=== PATIENT | female | born 1960 | race African-American/Black ===

== ENCOUNTER 2024-10-11 10:45 | Day surgery (SDC) | payer OTHER, SELFPAY ==
--- NOTE | ~2024-10-11 | XR_ITS ---
INTRAOPERATIVE FLUOROSCOPY: CLINICAL HISTORY: 64 years old Female; AFSHAN L3-4 TRANSFORMINAL EPI STEROID INJ PROCEDURE COMMENTS: Limited intraoperative fluoroscopy of the lumbar spine was performed. CUMULATIVE DOSE: 7.1 mGy FLUOROSCOPY TIME: 27 seconds FINDINGS/IMPRESSION: Please refer to operative note for further details. Reviewed, dictated and finalized at location A.
--- OUTSIDE RECORDS SUMMARY | 2024-10-11 10:51 | XMS_ITS | Encounter Summary ---
Author Organization [facility] Address [address] [place] [address] Phone Care Team Providers Care Extrusion Bender Name Role Phone Cole, Jessie Jensen MD Primary Care Provider + Vimal Dutton MD Primary Care Provider [phone] Tres Granado MD Primary Care Provider [phone] Mio Peck MD Unavailable Dedrick Carr MD Unavailable Cesar Manning Unavailable Edson Osborne MD Unavailable Unavailable Abdullahi Wilson MD Primary Care Provider +[phone] Cindy Oliver DPM Unavailable [phone] Junior Wallace MD Unavailable Alycia Mcclain APRN, MAINTENANCE EQUIPMENT OPERATOR Unavailable + [phone] Juanis Can MD Primary Care Provider + [phone] Con Fox MD Unavailable [phone] Robert Lowery MD Unavailable Chaz Felisha Williams GUERRA, MAINTENANCE EQUIPMENT OPERATOR Primary Care Provider [phone] Reason for Referral * Radiology Services (Routine) - Closed Specialty Diagnoses / Procedures Referred By Soha t Referred To Contact Radiology Diagnoses Pre-op testing Procedures EKG 12 LEAD Oscar Borrero MD #1 [place] [address] Phone: tel: fax: Referral ID Status Reason Start Date Expiration Date Visits Re quested Visits Authorized [id number] Closed 12/04/2021 1 1 Encounter Details Date Type Department Care Team (Late Contact Info) Description 12/04/2021 Transcribe Orders [facility] Preop/Pacu II 1 [place] [address] Oscar Borrero MD [address] [place] [address] Pre-op testing (Primary Dx) Social History Tobacco Use Types Packs/Day Years Used Date Smoking Tobacco: Every Day Cigarettes Smokeless Tobacco: Never Alcohol Use Standard Drinks/Week Comments Yes 2 (1 standard drink = 0.6 oz pur e alcohol) OCCASIONALLY Sexually Active Control Partners Comments Yes Post-menopausal Male Comments No Sex and Gender Information Value Date Recorded Sex Assigned at Not on file Legal Sex Female 12:22 AM CDT Gender Identity Not on file Sexual Orientation Not on file COVID-19 Exposure Response Date Recorded In the last 10 days, have yo u been in contact with someone who was confirmed or suspected to have Coronavirus/COVID-19? No / Unsure 12/05/2021 4:53 PM CDT documented as of this encounter Plan of Treatment Upcoming Encounters Date Type Department Care Team (Late Contact Info) Description 11/11/2024 11:30 AM CDT Office Visit [facility] Medical [facility] - Pulmonology & Sleep Medicine [facility] #2 [place] [address] Dedrick Carr MD #2 [place] [address] 12/16/2024 2:15 PM CDT Office Visit [facility] Medical [facility] - Endocrinology - [place] [address]2 [place] [address] Robert Lowery MD #[address] [address] 12/16/2024 3:30 PM CDT Office Visit [facility] - Primary Care - [place] [address] [place] [address] Felisha Ware TURKEY BONER, MAINTENANCE EQUIPMENT OPERATOR [address] [place] [address] 01/27/2025 10:00 AM CDT Office Visit [facility] - Cardiology [facility] [address] [place] [address] Khadijah Garay, MARI, MAINTENANCE EQUIPMENT OPERATOR [address]2 [place] [address] documented as of this encounter Results * EKG 12 LEAD (12/05/2021 2:38 PM CDT) Ventricular Rate BPM EXTERNAL EKG Atrial Rate BPM EXTERNAL EKG P-R Interval 144 ms EXTERNAL EKG QRS Duration 84 ms EXTERNAL EKG Q-T Duration 386 ms EXTERNAL EKG QTC CALCULATION 429 ms EXTERNAL EKG P [place] 71 degrees EXTERNAL EKG R [place] 37 degrees EXTERNAL EKG T [place] 65 degrees EXTERNAL EKG 12/05/2021 2:38 PM CDT Impressions EXTERNAL EKG - 12/10/2021 2:11 PM CDT Sinus rhythm Possible septal infarct - age undetermined Comparison Summary: No serial comparison made Summary: Abnormal ECG Confirmed by Td Pacheco [id number] on 12/10/2021 2:11:08 PM Narrative Procedure Note Junior Wallace MD - 12/10/2021 IMPRESSION: Sinus rhythm Possible septal infarct - age undetermined Comparison Summary: No serial comparison made Summary: Abnormal ECG Confirmed by Td Pacheco [id number] on 12/10/2021 2:11:08 PM Oscar Borrero MD IMG ECG ORDERABLES Final Resu lt EXTERNAL EKG * HEMOGLOBIN & HEMATOCRIT (H&H) (12/05/2021 2:31 PM CDT) HEMOGLOBIN (HGB) 12.8 12.0 - 15.8 g/dL 12/05/2021 2:37 PM CDT [facility] HEMATOCRIT (HCT) 39.1 36.0 - 47.0 % 12/05/2021 2:37 PM CDT [facility] Blood Venipuncture / Unknown 12/05/2021 2:31 PM CDT 12/05/2021 2:35 PM CDT Oscar Borrero MD HEMATOLOGY ORDERABLES Final R esult Performing Organization Address City/[facility]/ZIP Co de Phone Number [facility] [place] [address] documented in this encounter Visit Diagnoses Diagnosis Pre-op testing- Primary Preoperative examination, unspecified Pre-op testing Preoperative examination, unspecified documented in this encounter Additional Health Concerns Infection Onset Date Last Indicated Resolved Time COVID - 19 05/16/2024 05/16/2024 05/16/2024 11:1 4 AM 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 documented as of this encounter Care Teams Extrusion Bender Relationship Specialty Start Date End Date Jessie Cole MD [address] [place] [address] [place] [address] PCP - General Family Medicine 10/02/20 03/17/22 Vimal Dutton MD 4 [facility] [address] [place] [address] PCP - General Family Medicine 03/18/22 06/24/22 Tres Granado MD 4 [facility] [address] [place], [place] [address] [address] PCP - General Family Medicine 06/25/22 09/03/22 Abdullahi Wilson MD [address] [place] [id number] PCP - General Internal Medicine 09/04/22 08/02/23 Juanis Can MD [address] [place] [address] PCP - General Family Medicine 08/03/23 06/12/24 Felisha Ware, TURKEY BONER, MAINTENANCE EQUIPMENT OPERATOR [address] [place] [address] PCP - General Certified Nurse Practitioner 06/13/24 Mio Peck MD [address] [place] [address] Consulting Physician Orthopaedic Surgery 09/04/22 Dedrick Carr MD [address] [place] [address] Consulting Physician Pulmonary Disease 09/04/22 Cesar Manning 675 [facility] [address] [address] Consulting Physician Orthopaedic Sports Medicine 09/04/22 Edson Osborne MD Consulting Physician Orthopaedic Surgery 09/04/22 09/04/22 Cindy Oliver DPWilliams [address] [place] [address] Consulting Physician Podiatry 07/22/22 03/08/24 Junior Wallace MD [address] [place] [address] Consulting Physician Cardiovascular Disease - Cardiology 10/20/22 07/26/23 Alycia Cole APRN, MAINTENANCE EQUIPMENT OPERATOR [address] [place] [facility] [address] [place] [address] Nurse Practitioner Advanced Practice Nurse 05/18/23 Con Fox MD 2 [facility] [place] [facility] [place]. [address] [place] [address] Advanced Practice Psychiatric Nurse Internal Medicine 12/10/23 Robert Lowery MD #2 [facility] [address] [place] [address] Consulting Physician Endocrinology 02/03/24 documented as of this encounter
--- OUTSIDE RECORDS SUMMARY | 2024-10-11 10:51 | XMS_ITS | Encounter Summary ---
Author Organization [facility] Address [address] [place] [address] Phone Care Team Providers Care Scrub Wheel Operator Name Role Phone Cole, Jessie Jensen MD Primary Care Provider + Vimal Dutton MD Primary Care Provider [phone] Tres Granado MD Primary Care Provider [phone] Mio Peck MD Unavailable Dedrick Carr MD Unavailable Cesar Manning Unavailable Edson Osborne MD Unavailable Unavailable Abdullahi Wilson MD Primary Care Provider [phone] Cindy Oliver DPM Unavailable [phone] Junior Wallace MD Unavailable Alycia Mcclain APRN, INSURANCE MARKETING REP Unavailable + [phone] Juanis Can MD Primary Care Provider + [phone] Con Fox MD Unavailable [phone] Robert Lowery MD Unavailable Felisha Ware APRN, INSURANCE MARKETING REP Primary Care Provider [phone] Encounter Details Date Type Department Care Team (Late Contact Info) Description 12/05/[address] [facility] Sleep Lab 1 [place] [address] Dedrick Carr MD #2 [place] [address] Social History Tobacco Use Types Packs/Day Years [...] Description 11/11/2024 11:30 AM CDT Office Visit [facility] Medical [facility] - Pulmonology & Sleep Medicine [facility] #2 [place] [address] Dedrick Carr MD #2 [place] [address] 12/16/2024 2:15 PM CDT Office Visit [facility] Medical Group - Endocrinology - [place] [address] [place] [address] Robert Lowery MD #[address] [address] 12/16/2024 3:30 PM CDT Office Visit [facility] - Primary Care - [place] [address] [place] [address] Felisha Ware, COACH CLEANER, INSURANCE MARKETING REP [address] 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 documented as of this encounter Care Teams Scrub Wheel Operator Relationship Specialty Start Date End Date Jessie Cole MD [address] [place] [address] [address] [place] [address] PCP - General Family Medicine 10/02/20 03/17/22 Vimal Dutton MD [address] [place] [address] [address] [place] [address] PCP - General Family Medicine 03/18/22 06/24/22 Tres Granado MD [address] [place] [address] [place] [address] PCP - General Family Medicine 06/25/22 09/03/22 Abdullahi Wilson MD [address] [place] [address] PCP - General Internal Medicine 09/04/22 08/02/23 Juanis Can MD [address] [place] [address] PCP - General Family Medicine 08/03/23 06/12/24 Felisha Ware APRN, INSURANCE MARKETING REP [address] [place] [address] PCP - General Certified Nurse Practitioner 06/13/24 Mio Peck MD [address] [place] [address] Consulting Physician Orthopaedic Surgery 09/04/22 Dedrick Carr MD #[address] [place] [address] Consulting Physician Pulmonary Disease 09/04/22 Cesar Manning [address] [address] Consulting Physician Orthopaedic Sports Medicine 09/04/22 Edson Osborne MD Consulting Physician Orthopaedic Surgery 09/04/22 09/04/22 iCndy Oliver DPM [address] [place] [address] Consulting Physician Podiatry 07/22/22 03/08/24 Junior Wallace MD [address] [place] [address] Consulting Physician Cardiovascular Disease - Cardiology 10/20/22 07/26/23 Alycia Cole APRN, INSURANCE MARKETING REP #[address] [facility], [address] [place] [address] Nurse Practitioner Advanced Practice Nurse 05/18/23 Con Fox MD [address] [facility] [place] [place]. [address] [place] [address] [facility] Internal Medicine 12/10/23 Robert Lowery MD #[address] [place] [address] [place] [address] Consulting Physician Endocrinology 02/03/24 documented as of this encounter
--- OUTSIDE RECORDS SUMMARY | 2024-10-11 10:51 | XMS_ITS | Encounter Summary ---
Author Organization [facility] Address [address] [place] [address] Phone Care Team Providers Care Cnc Maintenance Mechanic Name Role Phone Cole, Jessie Jensen MD Primary Care Provider + Vimal Dutton MD Primary Care Provider [phone] Tres Granado MD Primary Care Provider [phone] Mio Peck MD Unavailable Dedrick Carr MD Unavailable Cesar Manning Unavailable Edson Osborne MD Unavailable Unavailable Abdullahi Wilson MD Primary Care Provider [phone] Cindy Oliver DPM Unavailable Junior Wallace MD Unavailable Alycia Mcclain APRN, ORNAMENT STAPLER Unavailable + [phone] Juanis Can MD Primary Care Provider + [phone] Con Fox MD Unavailable [phone] Robert Lowery MD Unavailable Felisha Ware APRN, ORNAMENT STAPLER Primary Care Provider [phone] Encounter Details Date Type Department Care Team (Late Contact Info) Description 12/05/2021 Transcribe Orders [facility] Preop/Pacu II 1 [place] [address] Oscar Borrero MD [address] [place] [address] Pre-op testing (Primary Dx) Social History Tobacco [...] Description 11/11/2024 11:30 AM CDT Office Visit [facility] - Pulmonology & Sleep Medicine [facility] #2 [place] [address] Dedrick Carr MD #[address] [place] [address] 12/16/2024 2:15 PM CDT Office Visit [facility] Medical Group - Endocrinology - [place] #2 [place] [address] Robert Lowery MD #[address] [address] 12/16/2024 3:30 PM CDT Office Visit [facility] - Primary Care - [place] [address] [place] [address] Felisha Ware, KNOWLEDGE ARCHITECT, ORNAMENT STAPLER [address] [place], [place] [address] 01/27/2025 10:00 AM CDT Office Visit [facility] Medical [facility] - Cardiology - [place] #2 [facility] [place] [address] Khadijah Garay, KNOWLEDGE ARCHITECT, ORNAMENT STAPLER #2 [place] [address] documented as of this encounter Results * SARS-COV-2 BY MOLECULAR (12/10/2021 12:05 PM CDT) [facility] SARSCOV2 NOT DETECTED (Referenc e Range for this test is Not Detected) [facility] US ID NOW 12/10/2021 12:52 PM CDT [facility] Comment:This test was perfor med by a MOLECULAR, NON-PCR method Other NASOPHARYNGEAL STRUCTURE / Unknown Non-Phlebotomy Collection / Unknown 12/10/2021 12:05 PM CDT 12/10/2021 12:24 PM CDT Narrative [facility] - 12/10/2021 12:52 PM CDT This test has been authorized by the FDA under an Emergency Use Authorization (EUA) only. Negative results should be treated as presumptive and, if inconsistent with clinical signs and symptoms or necessary for patient management, the patient should be tested with an alternative molecular assay. Negative results do not preclude SARS-CoV-2 infection or any other respiratory pathogen. Additional information for Clinicians can be found at: https://www.fda.gov/media/010215/download Additional information for Patients can be found at: https://www.fda.gov/media/380881/download Oscar Borrero MD MICROBIOLOGY - GENERAL ORDERA CAY[place] Final Result [facility] [place] [address] documented in this encounter Visit Diagnoses Diagnosis Pre-op testing- Primary Preoperative examination, unspecified documented in this encounter Additional Health Concerns Infection Onset Date Last Indicated Resolved Time COVID - 19 05/16/2024 05/16/2024 05/16/2024 11:1 4 AM 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 documented as of this encounter Care Teams Cnc Maintenance Mechanic Relationship Specialty Start Date End Date Jessie Cole MD [address] [facility] [place] [address] PCP - General Family Medicine 10/02/20 03/17/22 Vimal Dutton MD [address] [place] [address] [place] [address] PCP - General Family Medicine 03/18/22 06/24/22 Tres Granado MD [address] [place] [address] [address] [place] [address] PCP - General Family Medicine 06/25/22 09/03/22 Abdullahi Wilson MD [address] [place] [address] PCP - General Internal Medicine 09/04/22 08/02/23 Juanis Can MD [address] [place] [address] PCP - General Family Medicine 08/03/23 06/12/24 Felisha Ware, KNOWLEDGE ARCHITECT, ORNAMENT STAPLER [address] [place] [address] PCP - General Certified Nurse Practitioner 06/13/24 Mio Peck MD [address] [place] [address] Consulting Physician Orthopaedic Surgery 09/04/22 Dedrick Carr MD #2 [place] [address] Consulting Physician Pulmonary Disease 09/04/22 Cesar Manning [address] [address] Consulting Physician Orthopaedic Sports Medicine 09/04/22 Edson Osborne MD Consulting Physician Orthopaedic Surgery 09/04/22 09/04/22 Cindy Oliver DPM [address] [place] [address] Consulting Physician Podiatry 07/22/22 03/08/24 Junior Wallace MD [address] [place] [address] Consulting Physician Cardiovascular Disease - Cardiology 10/20/22 07/26/23 Alycia Cole APRN, ORNAMENT STAPLER #2 [facility], [address] [address] Nurse Practitioner Advanced Practice Nurse 05/18/23 Con Fox MD 2 [facility] [address] [place] [address] Daycare Assistant Internal Medicine 12/10/23 Robert Lowery MD #[address] [address] [address] Consulting Physician Endocrinology 02/03/24 documented as of this encounter
--- OUTSIDE RECORDS SUMMARY | 2024-10-11 10:52 | XMS_ITS | Clinical Summary ---
Author Organization [facility] Address [address] [place] [address] Phone Care Team Providers Care Timekeeper Supervisor Name Role Phone Mio Peck MD Unavailable Dedrick Carr MD Unavailable Cesar Manning Unavailable Con Fox MD Unavailable [phone] Robert Lowery MD Unavailable Felisha Ware APRN, BUFFER NICKEL Primary Care Provider [phone] Allergies Active Allergy Reactions Criticality Noted Date Comments Latex Hives 06/04/2022 Ketorolac Tromethamine Itching 10/02/2020 Tramadol Itching Low 11/18/2017 Medications Polyethylene Glycol 3350 (MIRALAX PO) Take by mouth every morning. FULL CAP FULL Active Multiple Vitamin (MULTIVITAMIN PO) Take by mouth daily. HOLD FOR 3 DAYS PRIOR TO SURGERY Active Respiratory Therapy Supplies (Nebulizer) Device Use as directed 1 Each 022 Active Blood Glucose Monitoring Suppl (IdenIveTouch Verio Reflect) w/Device Kit USE DIRECTED Active Glucose Blood (OneTouch Verio) Strip CHECKS IT WEEKLY NOW 022 Active Lancets (OneTouch Delica Plus [id number]) [facility] [place] TAKE GLUCOSE MEASUREMENTS ONCE DAILY Active ipratropium (ATROVENT) 0.02 % Solution 2.5 mL by Nebulization route every 6 hours. 360 mL 3 023 Active aspirin EC 81 MG Tablet Delayed Response Take 81 mg by mouth daily. Active albuterol 108 (90 Base) MCG/ACT Aerosol SolutionIndicati ons:Centrilobula r emphysema (HCC) take 2 Puffs by inhalation every 4 hours as needed for Wheezing. 18 g 3 023 Active nystatin (MYCOSTATIN) 148899 UNIT/GM Cream 023 Active ipratropium-albu terol (DUO-NEB) 0.5-2.5 (3) MG/3ML Solution 3 mL by Nebulization route 4 times daily. 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 1 g 6 025 Active albuterol (ProAir HFA) 108 (90 Base) MCG/ACT Aerosol Solution take 2 Puffs by inhalation every 4 hours as needed for Wheezing. 1 g 6 025 Active atorvastatin (LIPITOR) 80 MG Tablet Take 1 Tablet by mouth every morning. 90 Tablet 3 025 Active amLODIPine (NORVASC) 10 MG Tablet Take 1 Tablet by mouth every morning. 90 Tablet 1 025 Active fluticasone (FLONASE) 50 MCG/ACT SuspensionIndica tions:Viral sinusitis,Nasal congestion SHAKE LIQUID AND USE 2 SPRAYS IN EACH NOSTRIL DAILY DIRECTED 16 g 1 025 Active fluticasone (FLONASE) 50 MCG/ACT SuspensionIndica tions:Viral sinusitis,Nasal congestion 2 Sprays by Nasal route daily. Use in each nostril as directed. 16 g 1 025 2024 Discontinued Active Problems Problem Noted Date Diagnosed Date Precordial pain 02/01/2024 Irritable bowel syndrome with constipation 09/04 Tarsal tunnel syndrome of both lower extremities 08/24/2022 Onychomycosis of toenail 08/24/2022 Overview (07/27/2023): severe; seen by podiatry- started on terbinafine. 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 Chronic obstructive pulmonary disease 12/12/2020 Cyst of ovary 12/12/2020 Gastroesophageal reflux disease without esophagi tis 12/12/2020 Spinal stenosis of lumbar re gion with neurogenic claudication 12/12/2020 Tobacco dependence syndrome 11/15/2020 Peripheral arterial occlusive disease 07/21/2019 Vitamin D deficiency 06/30/2019 Resolved Problems Problem Noted Date Diagnosed Date Resolved Date Tobacco use disorder 12/04/2021 024 Encounters Date Type Department Care Team Description [facility]/10[facility] [place] [address] [place] [address] Felisha Ware, MARI, BUFFER NICKEL Results (mammogram) 09/21/2024 Refill [facility] [place] [address] [place] [address] Felisha Ware APRN, KIMBERLYN Medication Refill 08/11/2024 Results Follow-Up [address] [address] Felisha Ware APRN, KIMBERLYN XR SHOULDER COMPLETE RIGHT 08/08/2024 3:05 PM CDT Ancillary Procedure [facility] Diagnostic Radiology - [address] [phone] Felisha Ware APRN, BUFFER NICKEL Discharge Disposition: Discharged to home or Selfcare 08/08/2024 3:00 PM CDT Office Visit [facility] - [address] [phone] Felisha Ware APRN, KIMBERLYN Acute pain of right shoulder (Primary Dx) Discharge Disposition: Discharged to home or Selfcare 08/07/2024 Travel 07/26/2024 MyChart RX Renewal [facility] - [address] [phone] Felisha Ware APRN, BUFFER NICKEL Medication Renewal Declined 07/25/2024 2:30 PM CDT - 07/25/2024 11:59 PM CDT Hospital Encounter [facility] Cardiology Services [address] [place] [address] Felisha Ware APRN, BUFFER NICKEL Discharge Disposition: Discharged to home or Selfcare 07/23/2024 Travel 07/22/2024 8:00 AM CDT Physical Therapy [facility] [address], [place] [address] [phone] Juanis Can MD Bogowith, Kelly A, PT Spinal stenosis of lumbar region with neurogenic claudication (Primary Dx); Chronic bilateral low back pain with bilateral sciatica Discharge Disposition: Discharged to home or Selfcare 07/22/2024 [facility] [address], [place] [address] [place] [address] Evon Olea, PT 07/21/2024 [address] [facility] [place] [address] [place] [address] Abdullahi Wilson MD Medication Renewal Reviewed 07/21/2024 MyChart RX Renewal [facility] [place] [address] [place] [address] Noble Alcocer PAC Medication Renewal Reviewed 07/20/2024 Travel 07/18/2024 Travel 07/15/2024 8:00 AM CDT Physical Therapy [facility] at [facility] [address], [place] [address] [place] [address] Juanis Can MD Bogowith, Kelly A, PT Spinal stenosis of lumbar region with neurogenic claudication (Primary Dx); Chronic bilateral low back pain with bilateral sciatica Discharge Disposition: Discharged to home or Selfcare 07/13/2024 Travel from Last 3 Months Immunizations Immunization Administration Dates Next Due Influenza, Injectable, Quadrivalent 01/05,01/28/2018,01/13/2017,02/18,03/28/2015 Influenza, Seasonal, Injecta ble, Undefined 04/06/2013 Pneumococcal Vaccine Adult - 23 Valent 4 Pneumococcal conjugate PCV20 , polysaccharide TPO028 conjugate, adjuvant, PF 09/04/2022 TDAP Vaccine 12/07/2014 Family History Medical History Relation Name Comments Cancer Father Al Jorge Dementia Father Al Jorge Hypertension Father Al Jorge Prostate Cancer Father Al Jorge Rheumatoid Arthritis Father Al Jorge Cancer Maternal Aunt Janett Tilley lung cancer Chronic Obstructive Pulmonary Disease Mother Marquise jorge Emphysema Mother Vannessa jorge Hypertension Mother Vannessa jorge Lupus Mother Vannessa jorge Relation Name Status Comments Father Al Jorge Maternal Aunt Janett Tilley Mother Vannessa jorge Alive Social History Tobacco Use Types Packs/Day Years Used Date Smoking Tobacco: Former Cigarettes 0.5 15 0 06/05/2007 - 06/04/2022 Smokeless Tobacco: Never Tobacco Cessation:Counseling Given: Not Answered Alcohol Use Standard Drinks/Week Comments Yes 2 (1 standard drink = 0.6 oz pur e alcohol) [facility] Utilities Answer Date Recorded In the past 12 months has e electric, gas, oil, or water company threatened to shut off services in your home? No 06/01/2024 Social Connection and Isolation Panel Answer Date Recorded In a typical week, how many times do you talk on the phone with family, friends, or neighbors? More than three times a week 06/01/2024 How often do you get togethe r with friends or relatives? More than three times a week 06/01/2024 How often do you attend chur ch or restorationist services? 1 to 4 times per year 06/01/2024 Do you belong to any clubs o r organizations such as caodaism groups, unions, fraternal or athletic groups, or school groups? No 06/01/2024 How often do you attend meet ings of the clubs or organizations you belong to? Never 06/01/2024 Are you , , di vorced, , never , or living with a partner? Never 06/01/2024 AUDIT-C Answer Date Recorded Q1: How often do you have a drink containing alc ohol? Monthly or less 06/01/2024 Q2: How many drinks containi ng alcohol do you have on a typical day when you are drinking? 1 or 2 06/01/2024 Q3: How often do you have si x or more drinks on one occasion? Less than monthly 06/01/2024 Overall Financial Resource Strain (CARDIA) Answe r Date Recorded How hard is it for you to pa y for the very basics like food, housing, medical care, and heating? Not very hard 06/01/2024 PHQ-2 Answer Date Recorded Total Score - Questions 1-9 0 05/07 [facility] of Occupat ional Health - Occupational Stress Questionnaire Answer Date Recorded Do you feel stress - tense, restless, nervous, or anxious, or unable to sleep at night because your mind is troubled all the time - these days? Not at all 06/01/2024 Exercise Vital Sign Answer Date Recorde d On average, how many days pe r week do you engage in moderate to strenuous exercise (like a brisk walk)? 3 days 06/01/2024 On average, how many minutes do you engage in exercise at this level? 20 min 06/01/2024 Hunger Vital Sign Answer Date Recorded Within the past 12 months, y ou worried that your food would run out before you got the money to buy more. Sometimes true Within the past 12 months, t he food you bought just didn't last and you didn't have money to get more. Sometimes true PRAPARE - Transportation Answer Date Re corded In the past 12 months, has l ack of transportation kept you from medical appointments or from getting medications? No 05/08 In the past 12 months, has l ack of transportation kept you from meetings, work, or from getting things needed for daily living? No 06/01/2024 Housing Stability Vital Sign Answer Christian e Recorded In the last 12 months, was t here a time when you were not able to pay the mortgage or rent on time? No 07/29/2023 In the last 12 months, how many places have you lived? 1 07/29/2023 In the last 12 months, was t here a time when you did not have a steady place to sleep or slept in a detention (including now)? No 07/29/2023 Housing Stability Vital Sign Answer Christian e Recorded In the last 12 months, was t here a time when you were not able to pay the mortgage or rent on time? No 06/01/2024 In the past 12 months, how m any times have you moved where you were living? 0 06/01/2024 At any time in the past 12 m [facility] [place], were you homeless or living in a detention (including now)? No 06/01/2024 Education Answer Date Recorded What is the highest level of school you have completed or the highest degree you have received? Associate degree: occupational, technical, or vocational program 03/12/2022 Sexually Active Control Partners Comments Not Currently Post-menopausal, Other Male Part ial hysterectomy Comments No Sex and Gender Information Value Date Recorded Sex Assigned at Not on file Legal Sex Female 12:22 AM CDT Gender Identity Not on file Sexual Orientation Not on file Last Filed Vital Signs Vital Sign Reading Time Taken Comments Blood Pressure 120/64 08/08/2024 2:51 PM CDT Pulse 78 08/08/2024 2:51 PM CDT Temperature 36.7 C (98.1 F) 08/08/2024 2:51 PM CDT Respiratory Rate 18 08/08/2024 2:51 PM CDT Oxygen Saturation 98% 08/08/2024 2:51 PM CDT Inhaled Oxygen Concentration - - Weight 62.1 kg (136 lb 14.4 oz) 08/08/2024 2:51 PM CDT Height 165.1 cm (5' 5) 08/08/2024 2:51 PM CDT Body Mass Index 22.78 08/08/2024 2:51 PM CDT Plan of Treatment Upcoming Encounters Date Type Department Care Team (Late st Contact Info) Description 11/11/2024 11:30 AM CDT Office Visit [facility] - Pulmonology & Sleep Medicine - [place] [address] [place] [address] Dedrick Carr MD [address] [place] [phone] 12/16/2024 2:15 PM CDT Office Visit [facility] - Endocrinology - [place] [address] [place] [phone] Robert Lowery MD [address] [phone] 12/16/2024 3:30 PM CDT Office Visit [facility] - Primary Care - [place] [address] [place] [phone] Felisha Ware, BANK CONSULTANT, BUFFER NICKEL [address] [place] [address] 01/27/2025 10:00 AM CDT Office Visit [facility] - Cardiology - [place] [address] [place] [phone] Khadijah Garay, BANK CONSULTANT, [place] NICKEL [address] [place] [address] Health Maintenance Due Date Last Done Comments Cologuard 2007 Immunochemical Fecal Occult Blood 2007 Zoster Immunization (1 of 2) 02/20/2012 Respiratory Syncytial Virus (RSV) Immunization (Adult) (1 - Risk 60-74 years 1-dose series) 2022 SARS-COV-2 Immunization ( season) 2023 03/12/2021, 08/09/2020, 07/12/2020 Mammogram 06/22/2024 06/23/2023, 07/0 09/2021, 10/03/2020, Additional history exists Influenza Immunization (#1) 12/05/202401/05, 01/28/2018, 01/13/2017, Additional history exists Td Immunization Every 10 Years (Adults With 1 Tdap) 12/07/2024 12/07/2014 Colonoscopy 08/20/2027 08/19/2022, 11/04, 11/18/2017 Colorectal Cancer Screening 08/20/2027 DTaP/Tdap/Td Immunization Discontinued 12/07/2014 Pneumococcal Immunization (50+ years) Completed 09/04/2022, 04/06/2013 Pneumococcal Immunization Combined Discontinued 09/04/2022, 04/06/2013 Hepatitis C Virus (HCV) Screening Completed 07/27/2023 Hepatitis B Immunization Aged Out No longer eligible based on patient's age to complete this topic Human Papillomavirus (HPV) Immunization Aged Out No longer eligible based on patient's age to complete this topic Meningococcal Immunization (ACWY) Aged Out No longer eligible based on patient's age to complete this topic Rotavirus Immunization Aged Out No lo nger eligible based on patient's age to complete this topic Procedures Procedure Name Priority Date/Time Associated Diagnosis Comments PAIN CONSULT 09/22/2024 12:00 AM CDT XR SHOULDER COMPLETE RIGHT Routine 08/08/2024 3:25 PM CDT Acute pain of right shoulder ADULT TRANS THORACIC ECHO 2D COMPLETE Routine 07/25/2024 3:13 PM CDT Chest pain, unspecified type Other fatigue Pain of left upper extremity HEPATITIS C ANTIBODY Routine 07/27/2023 4:22 PM CDT Encounter for hepatitis C screening test for low risk patient AISLINN SCREENING BILATERAL DIGITAL W CAD W ALFIE Routine 02/10/2019 4:57 PM KILN PUSHER Encounter for screening mammogram for malignant neoplasm of breast from Last 3 Months or Most Recently Relevant to Health Maintenance Results * PAIN CONSULT (09/22/2024 12:00 AM CDT) 09/22/2024 us Provider Scan GENERIC SCAN ORDERS CONSULT Airam l Result SCAN * XR SHOULDER COMPLETE RIGHT (08/08/2024 3:25 PM CDT) Anatomical Region Laterality Modality UPPER EXTREMITY, shoulder Right Digita l Radiography 08/11/2024 3:31 PM CDT Impressions 08/11/2024 3:33 PM CDT IMPRESSION: 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 Narrative 08/11/2024 3:33 PM CDT EXAM DESCRIPTION: XR SHOULDER COMPLETE RIGHT REASON FOR STUDY: Anterior and posterior Rt shoulder pain for 1 month without injury TECHNIQUE: 4 view(s) of the right shoulder COMPARISON: None FINDINGS: There is no fracture or dislocation appreciated. Glenohumeral relationship is normal. There are mild osteoarthritic changes of the glenohumeral joint. Visualized portions of the right hemithorax are unremarkable. THIS IS AN ELECTRONICALLY VERIFIED FINAL REPORT 08/11/2024 3:31 PM - Electronically signed by Rishi Lin M.D. AM: AM Report ID: [id number] Reading Location: [id number] Procedure Note Rishi Lin MD - 08/11/2024 EXAM DESCRIPTION: XR SHOULDER COMPLETE RIGHT REASON FOR STUDY: Anterior and posterior Rt shoulder pain for 1 month without injury TECHNIQUE: 4 view(s) of the right shoulder COMPARISON: None FINDINGS: There is no fracture or dislocation appreciated. Glenohumeral relationship is normal. There are mild osteoarthritic changes of the glenohumeral joint. Visualized portions of the right hemithorax are unremarkable. THIS IS AN ELECTRONICALLY VERIFIED FINAL REPORT 08/11/2024 3:31 PM - Electronically signed by Rishi Lin M.D. AM: AM Report ID: [id number] Reading Location: [id number] IMPRESSION: 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 Felisha Ware APRN, KIMBERLYN IMG DIAGNOSTIC ORDERABLES Final Result * ADULT TRANS THORACIC ECHO 2D COMPLETE (07/25/2024 3:13 PM CDT) AV Peak Grad mmHg 5.76 mmHg RESULTING AGENCY Mean Aortic Valve Gradient (MAVG) 3 mmHg RESULTING AGENCY LV end mahi diam cm 4.2 cm RESULTING AGENCY LV end sys diam cm 2.6 cm RESULTING AGENCY Aortic Root Diam cm 2.9 cm RESULTING AGENCY LVOT Peak Oscar m/sec 0.946 m/sec RESULTING AGENCY AV Peak Oscar m/sec 1.2 m/sec RESULTING AGENCY MV Mean Grad mmHg 1 mmHg RESULTING AGENCY MVA by PHT cm2 3.38 cm2 RESUL TING AGENCY E/A Ratio 0.76 RESULTING AGENCY TR Oscar m/sec 2.38 m/sec RESULTI NG AGENCY E/E' 6.6 RESULTING AGENCY AV Area (VTI) cm2 2.5 cm2 RESULTING AGENCY SEPTUM DIASTOLIC CM 0.8 cm RESULTING AGENCY PW DIASTOLIC CM 1 cm RESU LTING AGENCY LV EF(estimated)% 63 RESULTING AGENCY Anatomical Region Laterality Modality CARDIO N/A Ultrasound Narrative 07/27/2024 2:07 PM CDT Transthoracic Echocardiography Report (TTE) Patient name DONOVAN Tony 1960 Patient ID (I) [id number] Indications: Chest pain, Hypertension and COPD. Study Date07/25/2024 Technical quality: Adequate Type of Study: TTE procedure: Adult Trans Thoracic Echo 2D Complete. Priority:RoutineHR: 60 bpmBP: 141/53 mmHg Conclusions Summary The left ventricle is normal in size. Wall thickness is normal. LV function is normal. There are no regional wall motion abnormalities. LV EF 60-65%. Grade I diastolic dysfunction. Findings Mitral Valve The mitral valve is normal. There is no evidence of mitral stenosis. Trace mitral regurgitation is present. Aortic Valve The aortic valve is trileaflet with normal leaflet excursion. There is no evidence of aortic valve stenosis. Trace AI. Tricuspid Valve The tricuspid valve is normal. There is no evidence of tricuspid stenosis. Trace tricuspid valve regurgitation. Insufficient TR jet to estimate PASP. Pulmonic Valve The pulmonic valve structure appears normal. There is no evidence of pulmonic stenosis. Trace pulmonic regurgitation. Left Atrium The left atrium size is normal. Left Ventricle The left ventricle is normal in size. Wall thickness is normal. LV function is normal. There are no regional wall motion abnormalities. LV EF 60-65%. Grade I diastolic dysfunction. Right Atrium Right atrium is mildly enlarged in size. Right Ventricle Normal right ventricular cavity size and normal systolic function. Pericardial Effusion The pericardium is normal. There is no pericardial effusion visualized. Pleural Effusion No pleural effusion noted. Miscellaneous Aortic root and proximal ascending aorta are normal in size. Atrial septum appears intact. IVC is normal in size and respiratory response. Aortic arch appears normal. Valves Mitral Valve Area (PHT): 3.38 cm^2 Area (continuity): 3.4 cm^2 Peak E-Wave: 0.52 m/s Mean Velocity: 0.46 m/s Peak A-Wave: 0.68 m/s Mean Gradient: 1 mmHg Peak Gradient: 1.09 mmHg Deceleration Time: 222 msec P1/2t: 65 msec Tissue Doppler E' Velocity: 0.07 m/s E/E':6.6 E/A Ratio: 0.76 E/Lat E': 6.6 E/Med E':7 Aortic Valve Area (continuity): 2.5 cm^2 Mean Velocity: 0.81 m/s Area (VTI):2.5 cm^2 Mean Gradient: 3 mmHg Peak Velocity: 1.2 m/s AV VTI: 28 cm Peak Gradient: 5.76 mmHg Tricuspid Valve Peak E-Wave: 0.52 m/s Peak Gradient: 1.11 mmHg TR Velocity: 2.38 m/s TR Gradient: 22.66 mmHg Pulmonic Valve Peak Velocity: 0.80 m/s Mean Velocity: 0.53 m/s Peak Gradient: 2.58 mmHg Mean Gradient: 1 mmHg LVOT Peak Velocity: 0.94 m/s Mean Velocity: 0.62 m/s Peak Gradient: 4 mmHg Mean Gradient: 2 mmHg LVOT Diameter: 2 cm LVOT VTI: 22.3 cm Stroke Volume: 70 ml Stroke Volume Index: 41.42 ml/m^2 Structures Left Ventricle Diastolic Dimension: 4.2 cm Systolic Dimension: 2.6 cm Septum Diastolic: 0.8 cm Septum Systolic: 1.1 cm PW Diastolic: 1 cm PW Systolic: 1.3 cm Diastolic Length: 22.2 cm Systolic Length: 12.3 cm EF Calculated: 65.09% CI: 2.49 l/min*m^2 CO: 4.2 l/min RWT: 0.48 LV EDV: 63.3 ml FS: 38.1 % LV EDV Index: 37 m^2 LV Length: 7.14 cm LV ESV: 22.1 ml LVOT Diameter: 2 cm LV ESV Index: 13 m^2 Right Ventricle RV basal dimension:3.3 cm RV mid dimension:2.4 cm RV longitudinal dimension:7 cm Tissue Doppler RV S': 11 TAPSE: 2.3 cm Left Atrium LA Systolic Pressure: 10.23 mmHg LA Area: 14.8 cm^2 Right Atrium RA Area: 14.1 cm^2 Great Vessels Aorta Ascending Aorta: 3.3 cm Aorta Root:2.9 cm Ascending Aorta Index:1.95 cm/m^2 Demographics Age 64 Gender Female Race Black Height 65 in. Weight 138.01 lbs. BMI (BSA) 22.97 kg/m^2 (1.69 m^2) Mult Au Matic Operator Soraya Mtz Interpreting Kelsey Jewell Referring Physician Sara LEWIS Physician Ruddy Andujar Procedure Note Con Fox MD - 07/27/2024 Transthoracic Echocardiography Report (TTE) Patient name DONOVAN Patel.O.B. 1960 Patient ID ([facility]) [id number] Indications: Chest pain, Hypertension and COPD. Study Date07/25/2024 Technical quality: Adequate Type of Study: TTE procedure: Adult Trans Thoracic Echo 2D Complete. Priority:RoutineHR: 60 bpmBP: 141/53 mmHg Conclusions Summary The left ventricle is normal in size. Wall thickness is normal. LV function is normal. There are no regional wall motion abnormalities. LV EF 60-65%. Grade I diastolic dysfunction. Findings Mitral Valve The mitral valve is normal. There is no evidence of mitral stenosis. Trace mitral regurgitation is present. Aortic Valve The aortic valve is trileaflet with normal leaflet excursion. There is no evidence of aortic valve stenosis. Trace AI. Tricuspid Valve The tricuspid valve is normal. There is no evidence of tricuspid stenosis. Trace tricuspid valve regurgitation. Insufficient TR jet to estimate PASP. Pulmonic Valve The pulmonic valve structure appears normal. There is no evidence of pulmonic stenosis. Trace pulmonic regurgitation. Left Atrium The left atrium size is normal. Left Ventricle The left ventricle is normal in size. Wall thickness is normal. LV function is normal. There are no regional wall motion abnormalities. LV EF 60-65%. Grade I diastolic dysfunction. Right Atrium Right atrium is mildly enlarged in size. Right Ventricle Normal right ventricular cavity size and normal systolic function. Pericardial Effusion The pericardium is normal. There is no pericardial effusion visualized. Pleural Effusion No pleural effusion noted. Miscellaneous Aortic root and proximal ascending aorta are normal in size. Atrial septum appears intact. IVC is normal in size and respiratory response. Aortic arch appears normal. Valves Mitral Valve Area (PHT): 3.38 cm^2 Area (continuity): 3.4 cm^2 Peak E-Wave: 0.52 m/s Mean Velocity: 0.46 m/s Peak A-Wave: 0.68 m/s Mean Gradient: 1 mmHg Peak Gradient: 1.09 mmHg Deceleration Time: 222 msec P1/2t: 65 msec Tissue Doppler E' Velocity: 0.07 m/s E/E':6.6 E/A Ratio: 0.76 E/Lat E': 6.6 E/Med E':7 Aortic Valve Area (continuity): 2.5 cm^2 Mean Velocity: 0.81 m/s Area (VTI):2.5 cm^2 Mean Gradient: 3 mmHg Peak Velocity: 1.2 m/s AV VTI: 28 cm Peak Gradient: 5.76 mmHg Tricuspid Valve Peak E-Wave: 0.52 m/s Peak Gradient: 1.11 mmHg TR Velocity: 2.38 m/s TR Gradient: 22.66 mmHg Pulmonic Valve Peak Velocity: 0.80 m/s Mean Velocity: 0.53 m/s Peak Gradient: 2.58 mmHg Mean Gradient: 1 mmHg LVOT Peak Velocity: 0.94 m/s Mean Velocity: 0.62 m/s Peak Gradient: 4 mmHg Mean Gradient: 2 mmHg LVOT Diameter: 2 cm LVOT VTI: 22.3 cm Stroke Volume: 70 ml Stroke Volume Index: 41.42 ml/m^2 Structures Left Ventricle Diastolic Dimension: 4.2 cm Systolic Dimension: 2.6 cm Septum Diastolic: 0.8 cm Septum Systolic: 1.1 cm PW Diastolic: 1 cm PW Systolic: 1.3 cm Diastolic Length: 22.2 cm Systolic Length: 12.3 cm EF Calculated: 65.09% CI: 2.49 l/min*m^2 CO: 4.2 l/min RWT: 0.48 LV EDV: 63.3 ml FS: 38.1 % LV EDV Index: 37 m^2 LV Length: 7.14 cm LV ESV: 22.1 ml LVOT Diameter: 2 cm LV ESV Index: 13 m^2 Right Ventricle RV basal dimension:3.3 cm RV mid dimension:2.4 cm RV longitudinal dimension:7 cm Tissue Doppler RV S': 11 TAPSE: 2.3 cm Left Atrium LA Systolic Pressure: 10.23 mmHg LA Area: 14.8 cm^2 Right Atrium RA Area: 14.1 cm^2 Great Vessels Aorta Ascending Aorta: 3.3 cm Aorta Root:2.9 cm Ascending Aorta Index:1.95 cm/m^2 Demographics Age 64 Gender Female Race Black Height 65 in. Weight 138.01 lbs. BMI (BSA) 22.97 kg/m^2 (1.69 m^2) Mult Au Matic Operator Soraya Mtz Interpreting Kelsey Jewell Referring Physician Sara LEWIS Physician Ruddy Andujar us Felisha Ware BANK CONSULTANT, BUFFER NICKEL IMG ECHO ORDERABLES Edited Result - Final * HEPATITIS C ANTIBODY (07/27/2023 4:22 PM CDT) hepatitis C antibody 0.10 <1 S/CO 07/28/2023 4:12 PM CDT [facility] Comment: Signal/Cutoff ratio < 0.79 is Nondetected Signal/Cutoff ratio 0.80-0.99 is Grayzone Signal/Cutoff ratio > 0.99 is Detected Supplemental assays are recommended if signal/cutoff ratio is >/=1.00. Signal/cutoff ratio result >/= 5.00 is 97% predictive of positivity for recombinant immunoblot assay (RIBA) and will be reported to the [place] [facility] Public [facility] as required. Blood Venipuncture / Unknown 07/27/2023 4:22 PM CDT 07/27/2023 4:22 PM CDT us Abdullahi Wilson MD CHEMISTRY ORDERABLES Airam l Result [facility] [address] [place] [address], * AISLINN SCREENING BILATERAL DIGITAL W CAD W ALFIE (02/10/2019 4:57 PM KILN PUSHER) Anatomical Region Laterality Modality breast Bilateral Mammography 02/10/2019 4:34 PM KILN PUSHER Narrative 02/12/2019 12:50 PM KILN PUSHER - AISLINN SCREENING BILATERAL DIGITAL W CAD W ALFIE BILATERAL DIGITAL SCREENING MAMMOGRAM 3D/2D WITH CAD WITH MEDIOLATERAL OBLIQUE CRANIOCAUDAL: 02/10/2019 The study was acquired using digital technology and interpreted from soft copy. Current study was also evaluated with ICAD version 7.2. CLINICAL: Routine screening. Patient has no complaints. Personal history of gynecological cancer. No family history of breast cancer. COMPARISONS: Comparison is made to exams dated: 12/24/2017 and 03/28/2011 [facility]. BREAST TISSUE:There are scattered fibroglandular densities in both breasts. FINDINGS: No significant masses, calcifications, or other findings are seen in either breast. There has been no significant interval change. IMPRESSION: BI-RAD 1 NEGATIVE There is no mammographic evidence of malignancy. A 1 year screening mammogram is recommended. The patient has been or will be contacted. The patient will be entered into a reminder system with a target due date of 1 year for her next screening exam. Electronically signed by: Shanon siomn/elmer:02/12/2019 12:02:37 Border Measurer: Caitlyn Alcantar (R)(Williams), [facility] letter sent: Normal Exam Reading location: [facility] BI-RADS: 1 Negative Procedure Note Shanon Arndt MD - 02/12/2019 - AISLINN SCREENING BILATERAL DIGITAL W CAD W ALFIE BILATERAL DIGITAL SCREENING MAMMOGRAM 3D/2D WITH CAD WITH MEDIOLATERAL OBLIQUE CRANIOCAUDAL: 02/10/2019 The study was acquired using digital technology and interpreted from soft copy. Current study was also evaluated with ICAD version 7.2. CLINICAL: Routine screening. Patient has no complaints. Personal history of gynecological cancer. No family history of breast cancer. COMPARISONS: Comparison is made to exams dated: 12/24/2017 and 03/28/2011 [facility]. BREAST TISSUE:There are scattered fibroglandular densities in both breasts. FINDINGS: No significant masses, calcifications, or other findings are seen in either breast. There has been no significant interval change. IMPRESSION: BI-RAD 1 NEGATIVE There is no mammographic evidence of malignancy. A 1 year screening mammogram is recommended. The patient has been or will be contacted. The patient will be entered into a reminder system with a target due date of 1 year for her next screening exam. Electronically signed by: Shanon simon/elmer:02/12/2019 12:02:37 Border Measurer: Caitlyn Whitaker)(Williams), [facility] letter sent: Normal Exam Reading location: [facility] BI-RADS: 1 Negative us aVsu Crook APRN, BUFFER NICKEL IMG MAMMO ORDERABLES Fin al Result from Last 3 Months or Most Recently Relevant to Health Maintenance Insurance MEDICAID [employer] [place] BREAST CERVICAL CANCER Care Teams Timekeeper Supervisor Relationship Specialty Start Date End Date Felisha Ware, BANK CONSULTANT, BUFFER NICKEL [address] [place] [address] PCP - General Certified Nurse Practitioner 06/13/24 Mio Peck MD [address] [place], [place] [id number] Consulting Physician Orthopaedic Surgery 09/04/22 Dedrick Carr MD [address] [place] [address] Consulting Physician Pulmonary Disease 09/04/22 Cesar Manning [address] [address] Consulting Physician Orthopaedic Sports Medicine 09/04/22 Con Fox MD [address] [address] Mortgage Loan Underwriter Internal Medicine 12/10/23 Robert Lowery MD [address] [address] Consulting Physician Endocrinology 02/03/24
--- OUTSIDE RECORDS SUMMARY | 2024-10-11 10:52 | XMS_ITS | Clinical Summary ---
Author Organization [facility] Address [address] [place] [address] Phone Care Team Providers Care Wet Machine Operator Name Role Phone [facility], External Provider Primary Care Provider U navailable Allergies No known active allergies Medications amLODIPine (NORVASC) 5 mg tablet Take 5 mg by mouth daily. Active aspirin (ECOTRIN EC) 81 mg Tablet, Delayed Release (E.C.) Take 81 mg by mouth daily. Active TERBINAFINE HCL TOPICAL Apply to affected area. Active ipratropium/alb uterol sulfate (COMBIVENT INHALATION) Take by inhalation. Active atorvastatin (LIPITOR) 40 mg tablet Take 40 mg by mouth late in the day. Active Active Problems Problem Noted Date Diagnosed Date Leg pain, bilateral 09/14/2017 Family History Medical History Relation Name Comments Cancer Father High Cholesterol Mother Hypertension Mother Relation Name Status Comments Father Mother Social History Tobacco Use Types Packs/Day Years Used Date Smoking Tobacco: Every Day Smokeless Tobacco: Never Alcohol Use Standard Drinks/Week Comments Yes 0 (1 standard drink = 0.6 oz pur e alcohol) Comments Unknown Sex and Gender Information Value Date Recorded Sex Assigned at Not on file Legal Sex Female 11:49 AM CDT Gender Identity Not on file Sexual Orientation Not on file Last Filed Vital Signs Vital Sign Reading Time Taken Comments Blood Pressure 136/87 09/14/2017 3:11 PM CDT Pulse 80 09/14/2017 3:11 PM CDT Temperature - - Respiratory Rate - - Oxygen Saturation - - Inhaled Oxygen Concentration - - Weight 66.5 kg (146 lb 8 oz) 09/14/2017 3:11 PM CDT Height 165.1 cm (5' 5) 09/14/2017 3:11 PM CDT Body Mass Index 24.38 09/14/2017 3:11 PM CDT Plan of Treatment Health Maintenance Due Date Last Done Comments DTAP/TDAP/TD VACCINES (1 - Tdap) 1981 HPV/Cotest (21-29) 1983 CERVICAL CANCER SCREENING 02/20/1992 HPV/Cotest (30-65) 02/20/1992 PAP SMEAR 02/20/1992 BREAST CANCER SCREENING 2002 COLORECTAL SCREENING 2007 Colorectal Cancer Screening 2007 FIT-DNA Q 3 years 2007 FIT/FOBT Q 1 year 2007 Flex Sig/CT Colonography Q 5 years 2007 ZOSTER VACCINE (1 of 2) 02/20/2012 INFLUENZA VACCINE (#1) 2024 RSV VACCINE (60+ or ) (1 - 1-dose 75+ series) 2037 Care Teams Wet Machine Operator Relationship Specialty Start Date End Date [facility], External Provider [address] [place] [address] PCP - General 09/14/17
--- OUTSIDE RECORDS SUMMARY | 2024-10-11 10:52 | XMS_ITS | Encounter Summary ---
Author Organization [facility] Address [address] [place] [address] Phone Care Team Providers Care Site Surveyor Name Role Phone Mio Peck MD Unavailable Dedrick Carr MD Unavailable Cesar Manning Unavailable Abdullahi Wilson MD Primary Care Provider [phone] Cindy Oliver DPM Unavailable [phone] Junior Wallace MD Unavailable Alycia Mcclain APRN, WET PROCESS TECHNICIAN Unavailable [phone] Juanis Can MD Primary Care Provider [phone] Con Fox MD Unavailable [phone] Robert Lowery MD Unavailable Felisha Ware APRN, WET PROCESS TECHNICIAN Primary Care Provider [phone] Reason for Visit * Reason Comments Medication Refill Encounter Details Date Type Department Care Team (Late st Contact Info) Description 06/30/2023 Refill [facility] Family [facility] [address] [place] [address] Abdullahi Wilson MD [address] [place] [address] Medication Refill Social History Tobacco Use Types Packs/Day Years Used Date Smoking Tobacco: Former Cigarettes 0.5 15 0 06/05/2007 - 06/04/2022 Smokeless Tobacco: Never Alcohol Use Standard Drinks/Week Comments Yes 2 (1 standard drink = 0.6 oz pur e alcohol) Education Answer Date Recorded What is the [...] on file Sexual Orientation Not on file documented as of this encounter Miscellaneous Notes * Telephone Encounter - Elkin Jj RN - 06/30/2023 12:12 PM CDT Medication(s) refilled and signed per [facility] Chronic Medication Refill Standing Order for Pediatricand Adult Patients. Requested Prescriptions Pending Prescriptions Disp Refills amLODIPine (NORVASC) 10 MG Tablet [Pharmacy Med Name: AMLODIPINE BESYLATE 10MG TABLETS] 90 Tablet 0 Sig: Take 1 Tablet by mouth every morning. Calcium-Channel Blockers Protocol Passed - 06/30/2023 12:05 PM Passed - BP on record in the past year Clinician-entered: BP Readings from Last 3 Encounters: 01/16/23 110/58 01/08/23 120/70 10/30/22 110/68 Patient-entered: No data recorded Passed - Visit with relevant provider in past 12 months or upcoming 90 days Recent Visits Date Type Provider Dept 10/16/22 Office Visit Abdullahi Wilson MD [facility] 09/04/22 Office Visit Adbullahi Wilson MD [facility] Showing recent visits within past 365 days and meeting all other requirements Future Appointments Date Type Provider Dept 09/21/23 Appointment Abdullahi Wilson MD [facility] Showing future appointments within next 90 days and meeting all other requirements documented in this encounter Plan of Treatment Upcoming Encounters Date Type Department Care Team (Late st Contact Info) Description 11/11/2024 11:30 AM CDT Office Visit [facility] Medical [facility] - Pulmonology & Sleep Medicine - [place] [address] [facility] [place] [address] Dedrick Carr MD [address] [place] [address] 12/16/2024 2:15 PM CDT Office Visit [facility] - Endocrinology - [place] [address] [place] [address] Robert Lowery MD [address] [address] 12/16/2024 3:30 PM CDT Office Visit [facility] - Primary Care - [place] [address] [place] [phone] Felisha Ware APRN, WET PROCESS TECHNICIAN [address] [place], [place] [phone] 01/27/2025 10:00 AM CDT Office Visit [facility] - Cardiology - [place] [address] [facility] [place] [address] Khadijah Garay APRN, WET PROCESS TECHNICIAN [address] [place] [address] documented as of this encounter Visit Diagnoses Not on filedocumented in this encounter Additional Health Concerns Infection Onset Date Last Indicated Resolved Time COVID - 19 05/16/2024 05/16/2024 05/16/2024 11:1 4 AM VP TRAINING documented as of this encounter Care Teams Site Surveyor Relationship Specialty Start Date End Date Abdullahi Wilson MD [address] [place] [address] PCP - General Internal Medicine 09/04/22 08/02/23 Juanis Can MD [address] [place] [address] PCP - General Family Medicine 08/03/23 06/12/24 Felisha Ware AMPOULE INSPECTOR, WET PROCESS TECHNICIAN [address] [place] [address] PCP - General Certified Nurse Practitioner 06/13/24 Mio Peck MD [address] [place] [address] Consulting Physician Orthopaedic Surgery 09/04/22 Dedrick Carr MD [address] [place] [address] Consulting Physician Pulmonary Disease 09/04/22 Cesar Manning [address] [address] Consulting Physician Orthopaedic Sports Medicine 09/04/22 Cindy Oliver DPM [address] [place] [address] Consulting Physician Podiatry 07/22/22 03/08/24 Junior Wallace MD [address] [place] [address] Consulting Physician Cardiovascular Disease - Cardiology 10/20/22 07/26/23 Alycia Cole APRN, WET PROCESS TECHNICIAN [address] [facility] [place] [address] [place] [address] Nurse Practitioner Advanced Practice Nurse 05/18/23 Con Fox MD [address] [facility] [place] [address] [place] [address] Retort Furnace Helper Internal Medicine 12/10/23 Robert Lowery MD #[address] [facility] [address] [place] [address] Consulting Physician Endocrinology 02/03/24 documented as of this encounter
--- OUTSIDE RECORDS SUMMARY | 2024-10-11 10:52 | XMS_ITS | Encounter Summary ---
Author Organization [facility] Address [address] [facility] [place] [address] Phone Care Team Providers Care Charity Fundraiser Name Role Phone MerychavezMio MD Unavailable Dedrick Carr MD Unavailable Cesar Manning Unavailable Cindy Oliver DPM Unavailable [phone] Alycia Cole COMPRESSED YEAST SUPERVISOR, SOLE SPLITTER Unavailable [phone]- [phone] Juanis Can MD Primary Care Provider [phone] Con Fox MD Unavailable [phone] Robert Lowery MD Unavailable Felisha Ware COMPRESSED YEAST SUPERVISOR, SOLE SPLITTER Primary Care Provider [phone] Reason for Visit * Reason Comments Medication Refill Encounter Details Date Type Department Care Team (Late st Contact Info) Description 09/23/2023 Refill [facility] - Family Medicine [facility] [address] [place] [address] Abdullahi Wilson MD [address] [place] [address] Medication Refill Social History Tobacco Use Types Packs/Day Years Used Date Smoking Tobacco: Former Cigarettes 0.5 15 0 06/05/2007 - 06/04/2022 Smokeless Tobacco: Never Alcohol Use Standard Drinks/Week Comments Yes 2 (1 standard drink = 0.6 oz pur e alcohol) [facility] Utilities Answer Date Recorded In the past 12 months has e [employer], gas, oil, or water [employer] threatened to shut off services in your home? No 07/29/2023 Social Connection and Isolation Panel Answer Date Recorded In a typical week, how many times do you talk on the phone with family, friends, or neighbors? Three times a week 07/29/2023 How often do you get togethe r with friends or relatives? More than three times a week 07/29/2023 How often do you attend chur or mosque services? Patient declined 07/29/2023 Do you belong to any clubs o r organizations such as hoahaoism groups, unions, fraternal or athletic groups, or school groups? No 07/29/2023 How often do you attend meet ings of the clubs or organizations you belong to? Patient declined 07/29/2023 Are you , , di vorced, , never , or living with a partner? Never 07/29/2023 AUDIT-C Answer Date Recorded Q1: How often do you have a drink containing alc ohol? 2-4 times a month 07/29/2023 Q2: How many drinks containi ng alcohol do you have on a typical day when you are drinking? 3 or 4 07/29/2023 Q3: How often do you have si x or more drinks on one occasion? Less than monthly 07/29/2023 Overall Financial Resource Strain (CARDIA) Answe r Date Recorded How hard is it for you to pa y for the very basics like food, housing, medical care, and heating? Not very hard 07/29/2023 PHQ-2 Answer Date Recorded Total Score - Questions 1-9 0 07/06 [facility] - Occupational Stress Questionnaire Answer Date Recorded Do you feel stress - tense, restless, nervous, or anxious, or unable to sleep at night because your mind is troubled all the time - these days? Only a little 07/29/2023 Exercise Vital Sign Answer Date Recorde d On average, how many days pe r week do you engage in moderate to strenuous exercise (like a brisk walk)? 5 days 07/29/2023 On average, how many minutes do you engage in exercise at this level? 20 min 07/29/2023 Hunger Vital Sign Answer Date Recorded Within [...] medical appointments or from getting medications? No 07/06 In the past 12 months, has l ack of transportation kept you from meetings, work, or from getting things needed for daily living? No 07/29/2023 Housing Stability Vital Sign Answer [...] place to sleep or slept in a residential (including now)? No 07/29/2023 Education Answer Date Recorded What is the [...] on file documented as of this encounter Plan of Treatment Upcoming Encounters Date Type Department Care Team (Late st Contact Info) Description 11/11/2024 11:30 AM CDT Office Visit [facility] - Pulmonology & Sleep Medicine [facility] [address] [place] [address] Dedrick Carr MD [address] [facility] [place] [place] [address] 12/16/2024 2:15 PM CDT Office Visit [facility] - Endocrinology - [place] [address] [place] [address] Robert Lowery MD [address] [facility] [address] [address] 12/16/2024 3:30 PM CDT Office Visit [facility] Medical [facility] - Primary Care - [place] [address] [place] [address] Felisha Ware, COMPRESSED YEAST SUPERVISOR, SOLE SPLITTER [address] [place], [place] [phone] 01/27/2025 10:00 AM CDT Office Visit [facility] Medical [facility] - Cardiology - [place] [address] [place] [address] Khadijah Garay, COMPRESSED YEAST SUPERVISOR, SOLE SPLITTER [address] [place] [address] documented as of this encounter Visit Diagnoses Not on filedocumented in this encounter Additional Health Concerns Infection Onset Date Last Indicated Resolved Time COVID - 19 05/16/2024 05/16/2024 05/16/2024 11:1 4 AM FLOATLIGHT POWDER MIXER Assessment Noted Time PHQ-9 Depression Total Score: 0 07/27/19 24 4:00 PM CDT documented as of this encounter Care Teams Charity Fundraiser Relationship Specialty Start Date End Date Juanis Can MD [address] [place], [place] [phone] PCP - General Family Medicine 08/03/23 06/12/24 Felisha Ware APRN, SOLE SPLITTER [address] [place] [address] PCP - General Certified Nurse Practitioner 06/13/24 Mio Peck MD [address] [place], [place] [phone] Consulting Physician Orthopaedic Surgery 09/04/22 Dedrick Carr MD [address] [place] [address] Consulting Physician Pulmonary Disease 09/04/22 Cesar Manning [address] [place] [address] [id number] Consulting Physician Orthopaedic Sports Medicine 09/04/22 Cindy Oliver DPM [address] [address] [id number] Consulting Physician Podiatry 07/22/22 03/08/24 Alycia Cole APRN, SOLE SPLITTER #[address] [address] Nurse Practitioner Advanced Practice Nurse 05/18/23 Con Fox MD [address] [id number] Paint Line Production Supervisor Internal Medicine 12/10/23 Robert Lowery MD #[address] [address] Consulting Physician Endocrinology 02/03/24 documented as of this encounter"
--- OUTSIDE RECORDS SUMMARY | 2024-10-11 10:52 | XMS_ITS | Continuity of Care Document ---
Author Organization [facility] Address [address] [place] [address] [place] [address] Phone Care Team Providers Care Electrical Machinist Name Role Phone Tacos Verma MD Unavailable Unavailable Procedures Procedure Date Office/outpatient Visit, [facility] Advance Directives Directive Yes / No Effective Date File Name No Information Encounters Encounter Description Practice Location Reason(s) For Visit Diagnoses Date Provider Providers Copied on Encounter Office/outpat ient Visit, [facility], [address] [place] [address] [address], [place], [place], [id number], tel:[phone] SEC Sammi Rebekah Parisi No Information [address] [facility], [place], [place], [id number], [place]. tel:[phone] Referring Provider: Johanny Cardozo, [address], [place], [address]. tel:[phone] Family History Family Member Type Diagnosis Age At Onset No Information Payers Payer name Insurance type Covered green party ID Authoriza tion(s) No Information Social History Type Description Quantity Date Captured Comments Sex Female Smoking Status No Information Chief Complaint And Reason For Visit No Information Reason For Referral Reason For Referral No Information History Of Present Illness Encounter Date Complaint History Of Prese nt Illness No Information Functional Status Date Functional Assessmen t No Information Instructions Date Instruction Additional Infor mation No Information Assessments Type Assessment Date No Information Patient Care Teams Name Effective Dates (start - stop) Status Members No Information
--- OUTSIDE RECORDS SUMMARY | 2024-10-11 10:52 | XMS_ITS | Encounter Summary ---
Author Organization [facility] Address [address] [place] [address] Phone Care Team Providers Care Carboy Filler Name Role Phone Cole, Jessie Jensen MD Primary Care Provider + Vimal Dutton MD Primary Care Provider [phone] Tres Granado MD Primary Care Provider [phone] Mio Peck MD Unavailable Dedrick Carr MD Unavailable Cesar Manning Unavailable Edson Osborne MD Unavailable Unavailable Abdullahi Wilson MD Primary Care Provider [phone] Cindy Oliver DPM Unavailable Junior Wallace MD Unavailable Alycia Mcclain APRN, BIG DATA HADOOP DEVELOPER Unavailable + [phone] Juanis Can MD Primary Care Provider + [phone] Con Fox MD Unavailable [phone] Robert Lowery MD Unavailable Felisha Ware APRN, BIG DATA HADOOP DEVELOPER Primary Care Provider [phone] Encounter Details Date Type Department Care Team (Late st Contact Info) Description 12/19/2021 Telephone [facility] Out[facility] [address] [place] [address] Dedrick Carr MD [address] [place] [address] Social History Tobacco Use Types [...] suspected to have Coronavirus/COVID-19? No / Unsure 12/19/2021 9:47 AM CDT documented as of this encounter Miscellaneous Notes * Telephone Encounter - Maico HernandezSonu rockwellia - 12/19/2021 11:34 AM CDT Images from the original note were not included. Auth Denied-P2P offered - can be initiated by calling [phone] Ordering Provider: Internal Appointment Info: Clinic: [facility] CT Clinic Provider: [email or web address] Appt Date/Time: Thursday 11:00 AM Payor + Plan: MEDICAID [employer] [facility] [place] [employer] [facility] CPT/Test: CT-CHEST DIAG W/O CONTRAST [09344 (CPT??)] Authorization denied through: [facility] Phone number called: [phone] Reference number / plastic products sales representative's name and time of call: [phone] Estimated Amount [Full Charges]: $2564.00 Reason for denial: Denial Rationale Your doctor???s request for a(n) Chest CT (Computed Tomography - pictures of inside your chest area) has been denied. ??? [employer] Clinical Guideline 020 for Chest (Thorax) CT was used to make this decision. ??? This decision was based on the notes that were sent: you have a problem in your chest. ??? Before we can approve, we need the following notes: doctor's notes that say why the test (CT (Computed Tomography) Low Dose for Lung Cancer Screening) that you already did in November (need radiology report) is not enough to show your doctor how to treat you. These were not given to us. ??? It is suggested that you follow up with your doctor for the next step in your care. Add'l Steps Taken (Pt Notified, Reached out to Provider, etc.): Peer to Peer review offered by Payer: Yes Peer to Peer review expires: [facility] Case #: [id number] Phone #: [phone] Physician: Dedrick Carr MD Phys. Notified? Yes documented in this encounter Plan of Treatment Upcoming Encounters Date Type Department Care Team (Late st Contact Info) Description 11/11/2024 11:30 AM CDT Office Visit [facility] - Pulmonology & Sleep Medicine [facility] [address] [place] [address] Dedrick Carr MD #[address] [place] [address] 12/16/2024 2:15 PM CDT Office Visit [facility] - Endocrinology - [place] [address] [place] [address] Robert Lowery MD #[address] [address] 12/16/2024 3:30 PM CDT Office Visit [facility] - Primary Care - [place] [address] [place] [address] Felisha Ware, POWDER WORKER, BIG DATA HADOOP DEVELOPER [address] 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 documented as of this encounter Care Teams Carboy Filler Relationship Specialty Start Date End Date Jessie Cole MD [address] [place] [address] [place] [address] PCP - General Family Medicine 10/02/20 03/17/22 Vimal Dutton MD [address] [place] [address] [place] [address] PCP - General Family Medicine 03/18/22 06/24/22 Tres Granado MD [address] [place] [address] [place] [address] PCP - General Family Medicine 06/25/22 09/03/22 Abdullahi Wilson MD [address] [place] [address] PCP - General Internal Medicine 09/04/22 08/02/23 Juanis Can MD [address] [place] [address] PCP - General Family Medicine 08/03/23 06/12/24 Felisha Ware, POWDER WORKER, BIG DATA HADOOP DEVELOPER [address] [place] [address] PCP - General Certified Nurse Practitioner 06/13/24 Mio Peck MD [address] [place] [address] Consulting Physician Orthopaedic Surgery 09/04/22 Dedrick Carr MD #[address] [place] [address] Consulting Physician Pulmonary Disease 09/04/22 Cesar Manning [address] [address] Consulting Physician Orthopaedic Sports Medicine 09/04/22 Edson Osborne MD Consulting Physician Orthopaedic Surgery 09/04/22 09/04/22 Cindy Oliver, DPM [address] [place] [address] Consulting Physician Podiatry 07/22/22 03/08/24 Junior Wallace MD [address] [place] [address] Consulting Physician Cardiovascular Disease - Cardiology 10/20/22 07/26/23 Alycia Cole APRN, BIG DATA HADOOP DEVELOPER #[address] [address] Nurse Practitioner Advanced Practice Nurse 05/18/23 Con Fox MD 2 [facility] [address] [place] [address] Pathology Secretary/Transcriptionist Internal Medicine 12/10/23 Robert Lowery MD #[address] [address] Consulting Physician Endocrinology 02/03/24 documented as of this encounter
--- OUTSIDE RECORDS SUMMARY | 2024-10-11 10:52 | XMS_ITS | Encounter Summary ---
Author Organization [facility] Address [address] [place] [address] Phone Care Team Providers Care Manager Product Management Name Role Phone Mio Peck MD Unavailable Dedrick Carr MD Unavailable Cesar Manning Unavailable Abdullahi Wilson MD Primary Care Provider [phone] Cindy Oliver DPM Unavailable [phone] Alycia Cole APRN, DONOR SERVICES TEAM LEADER Unavailable +- [phone] Juanis Can MD Primary Care Provider +- [phone] Con Fox MD Unavailable [phone] Robert Lowery MD Unavailable Felisha Ware APRN, DONOR SERVICES TEAM LEADER Primary Care Provider [phone] Reason for Visit * Reason Comments Medication Refill Encounter Details Date Type Department Care Team (Late st Contact Info) Description 07/31/2023 Refill [facility] - Primary Care - [place] [address] [place] [address] Abdullahi Wilson MD [address] [place] [address] Medication Refill Social History Tobacco Use Types Packs/Day Years Used Date Smoking Tobacco: Former Cigarettes 0.5 15 0 06/05/2007 - 06/04/2022 Smokeless Tobacco: Never Alcohol Use Standard Drinks/Week Comments Yes 2 (1 standard drink = 0.6 oz pur e alcohol) [facility] Utilities Answer Date Recorded In the [...] week 07/29/2023 How often do you attend [facility] or confucianism services? Patient declined 07/29/2023 Do you belong to any clubs o r organizations such as adventism groups, unions, fraternal or athletic groups, or [...] Total Score - Questions 1-9 0 07/06 [facility] - Occupational Stress [...] place to sleep or slept in a longterm (including now)? No 07/29/2023 Education Answer Date [...] Telephone Encounter - Elkin Jj RN - 08/01/2023 2:28 PM CDT pt has appt on 08/03/23. will address then documented in this encounter Plan of Treatment Upcoming Encounters Date Type Department Care Team (Late st Contact Info) Description 11/11/2024 11:30 AM CDT [facility] - [place] [address] [place] [address] Dedrick Carr MD [address] [place] [address] 12/16/2024 2:15 PM CDT Office Visit [facility] - Endocrinology - [place] [address] [place] [address] Robert Lowery MD #[address] [address] 12/16/2024 3:30 PM CDT Office Visit [facility] - Primary Care - [place] [address] [place] [address] Felisha Ware APRN, DONOR SERVICES TEAM LEADER [address] 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 Assessment Noted Time PHQ-9 Depression Total Score: 0 07/27/19 4:00 PM CDT documented as of this encounter Care Teams Manager Product Management Relationship Specialty Start Date End Date Abdullahi Wilson MD [address] [place] [address] PCP - General Internal Medicine 09/04/22 08/02/23 Juanis Can MD [address] [place] [address] PCP - General Family Medicine 08/03/23 06/12/24 Felisha Ware, BOX LIDDER, DONOR SERVICES TEAM LEADER [address] [place] [address] PCP - General Certified Nurse Practitioner 06/13/24 Mio Peck MD [address] [place] [address] Consulting Physician Orthopaedic Surgery 09/04/22 Dedrick Carr MD [address] [place] [address] Consulting Physician Pulmonary Disease 09/04/22 Cesar Manning [address] [address] [address] Consulting Physician Orthopaedic Sports Medicine 09/04/22 Cindy Oliver, DPM [address] [place] [address] Consulting Physician Podiatry 07/22/22 03/08/24 Alycia Cole APRN, DONOR SERVICES TEAM LEADER #2 [facility] [place] [address] [place] [address] Nurse Practitioner Advanced Practice Nurse 05/18/23 Con Fox MD 2 [facility] [place]. [address] [place] [address] Taker Out Internal Medicine 12/10/23 Robert Lowery MD #[address] [facility] [place] [address] [place] [address] Consulting Physician Endocrinology 02/03/24 documented as of this encounter
--- OUTSIDE RECORDS SUMMARY | 2024-10-11 10:52 | XMS_ITS | Clinical Summary ---
Author Organization [facility] Address [address] [place] [address] Care Team Providers Care Lehr Tender Name Role Phone Vasu Crook NP Primary Care Provider [phone] Antony Au MD Unavailable Medications atorvastatin 40 MG tablet Take 20 mg by mouth every evening. Active aspirin EC 81 MG tablet Take 81 mg by mouth daily. Active amLODIPine 5 MG tablet Take 5 mg by mouth daily. 01/20/2019 Active vitamin D3, cholecalciferol , 5000 UNITS capsule Take 1 capsule by mouth daily. Active fluticasone propionate 50 MCG/ACT nasal spray 1 spray by Nasal route daily. 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 Gender Identity Not on file Sexual Orientation Not on file Last Filed Vital Signs Vital Sign Reading Time Taken Comments Blood Pressure 130/70 07/21/2019 2:42 PM CDT Pulse 88 07/21/2019 2:42 PM CDT Temperature - - Respiratory Rate - - Oxygen Saturation - - Inhaled Oxygen Concentration - - Weight 72 kg (158 lb 12.8 oz) 07/21/2019 2:42 PM CDT Height 165.1 cm (5' 5) 07/21/2019 2:42 PM CDT Body Mass Index 26.43 07/21/2019 2:42 PM CDT Plan of Treatment Health Maintenance Due Date Last Done Comments Colorectal Cancer Screening Colonoscopy (10 Years) 1962 Annual Physical 1965 Hepatitis C 02/20/1980 DTaP, Tdap and Td Vaccines ( 1 - Tdap) 1981 Pneumococcal Vaccine: 50+ Ye ars (1 of 2 - PCV) 1981 Mammogram Screening 2002 Zoster Vaccines (1 of 2) 02/20/2012 COVID-19 Vaccine (2 - 2023-2 5 season) 2023 07/12/2020 RSV Immunization or 60+ Years (1 - 1-dose 75+ series) 2037 Meningococcal B Vaccine Aged Out No l onger eligible based on patient's age to complete this topic Meningococcal Vaccine Aged Out No vasiliy sandra eligible based on patient's age to complete this topic RSV Immunizations Under 20 Months Aged Out No longer eligible based on patient's age to complete this topic Insurance MEDICAID MEDICAID Care Teams Lehr Tender Relationship Specialty Start Date End Date Vasu Crook NP [address] , [facility] [address] [place] [address] PCP - General NURSE PRACTITIONER 06/05/19 Antony Au MD Three [facility]. [facility] [address] [place] [address] [place] Picking Machine Operator VASCULAR SURGERY 06/05/19
--- OUTSIDE RECORDS SUMMARY | 2024-10-11 10:52 | XMS_ITS | Encounter Summary ---
Author Organization [facility] Address [facility] [place] [address] Care Team Providers Care Keyboard Instrument Tuner Name Role Phone Vasu Crook NP Primary Care Provider [phone] Antony Au MD Unavailable Encounter Details Date Type Department Care Team (Late st Contact Info) Description 06/13/2019 Abstract [facility] at [address] [address] Leonid Hinds [place] Social History Tobacco Use Types Packs/Day Years Used Date Smoking Tobacco: Every Day Cigarettes 0.5 43 Smokeless Tobacco: Never Alcohol Use Standard Drinks/Week Comments Yes 0 (1 standard drink = 0.6 oz pur e alcohol) Comments Unknown Sex and Gender Information Value Date Recorded Sex Assigned at Not on file 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 Gender Identity Not on file Sexual Orientation Not on file documented as of this encounter Plan of Treatment Not on file documented as of this encounter Procedures Procedure Name Priority Date/Time Associated Diagnosis Comments CBC (OUTSIDE LAB) Routine 02/04/2019 COMPREHENSIVE METABOLIC PANEL Routine 02/04/2019 LIPID PANEL Routine 02/04/2019 THYROID STIM HORMONE TSH Routine 02/04/2019 VITAMIN D, 25 OH Routine 02/04/2019 documented in this encounter Results * CBC (OUTSIDE LAB) (02/04/2019) Pathologist [facility] WBC 6.3 3.4 - 10.8 HGB 14.1 11.1 - 15.9 HCT 43.6 34.0 - 46.6 PLT 290 150 - 450 02/04/2019 us [facility] Abstract LAB-OUTSIDE/ABSTRACTED Final Result * COMPREHENSIVE METABOLIC PANEL (02/04/2019) Pathologist [facility] SODIUM S/P/B 142 134 - 144 POTASSIUM S/P/B 5.1 3.5 - 5.2 CO2 20 20 - 29 CHLORIDE S/P/B 104 96 - 106 GLUCOSE 98 65 - 99 mg/dL CALCIUM S/P/B 9.9 8.7 - 10.2 BUN 18 6 - 24 CREATININE S/P/B 0.87 0.5 - 1.0 EGFR AFR. AMER. 86 <=90 EGFR NON-AFR. AMER. 75 <=90 ALKALINE PHOSPHATASE S/P/B 80 39 - 117 ALT 27 0 - 32 AST 27 0 - 40 BILIRUBIN TOTAL S/P/B 0.2 0.0 - 1.2 ALBUMIN S/P/B 4.7 3.5 - 5.0 TOTAL PROTEIN S/P/B 7.9 6.0 - 8.5 GLOBULIN 3.2 1.5 - 4.5 02/04/2019 [facility] Abstract LABORATORY Edited Resul t - Final * LIPID PANEL (02/04/2019) Pathologist [facility] CHOLESTEROL 153 100 - 199 HDL 52 >39 TRIGLYCERIDES 64 0 - 149 LDL (CALCULATED) 88 0 - 99 02/04/2019 us Doc [facility] Abstract LABORATORY Final Result * THYROID STIM HORMONE, TSH (02/04/2019) Pathologist [facility] TSH 0.772 0.45 - 4.5 02/04/2019 us Doc [facility] Abstract LABORATORY Final Result * VITAMIN D, 25 OH (02/04/2019) VITAMIN D 25 HYDROXY S/P/B 17.7 30 - 100 02/04/2019 us Doc [facility] Abstract LABORATORY Final Result documented in this encounter Visit Diagnoses Not on filedocumented in this encounter Care Teams Keyboard Instrument Tuner Relationship Specialty Start Date End Date Vasu Crook NP [address] , [facility] [address] [place] [address] PCP - General NURSE PRACTITIONER 06/05/19 Antony Au MD Three [facility]. [facility] [address] [place] [address] [place] Cash Checker VASCULAR SURGERY 06/05/19 documented as of this encounter
--- OUTSIDE RECORDS SUMMARY | 2024-10-11 10:52 | XMS_ITS | Encounter Summary ---
Author Organization [facility] Address [address] [facility] [place] [address] Phone Care Team Providers Care Acquisition Consultant Name Role Phone Tres Granado MD Primary Care Provider [phone] Mio Peck MD Unavailable Dedrick Carr MD Unavailable Cesar Manning Unavailable Edson Osborne MD Unavailable Unavailable Abdullahi Wilson MD Primary Care Provider [phone] Cindy Oliver DPM Unavailable [phone] Junior Wallace MD Unavailable Alycia Mcclain FIRE CAPTAIN, FILM EXAMINER Unavailable [phone]- [phone] Juanis Can MD Primary Care Provider + [phone] Con Fox MD Unavailable [phone] Robert Lowery MD Unavailable Felisha Ware FIRE CAPTAIN, FILM EXAMINER Primary Care Provider Reason for Visit * Reason Comments Medication Refill Encounter Details Date Type Department Care Team (Late st Contact Info) Description 08/18/2022 Refill [facility] - Pulmonology & Sleep Medicine [facility] [address] [place] [address] Dedrick Carr MD [address] [place] [address] Medication Refill Social History Tobacco Use Types Packs/Day Years Used Date Smoking Tobacco: Former Cigarettes 0.5 15 1 05/07/2021 - 06/04/2022 Smokeless Tobacco: Never Alcohol Use [...] suspected to have Coronavirus/COVID-19? No / Unsure 08/19/2022 9:50 AM CDT documented as of this encounter Miscellaneous Notes * Telephone Encounter - Bibiana Jones RN - 08/18/2022 8:29 AM CDT Medication failed the protocol, provider to review and approve the medication order if appropriate. Requested Prescriptions Pending Prescriptions Disp Refills ezetimibe (ZETIA) 10 MG Tablet [Pharmacy Med Name: EZETIMIBE 10 MG TABLET] 90 Tablet 1 Sig: TAKE 1 TABLET BY MOUTH EVERY DAY Intestinal Cholesterol Absorption Inhibitors Protocol Failed - 08/18/2022 1:06 AM Failed - Lipid panel in past year No results found for: LDL, HDLCHOLESTE, CHOLESTEROL, TRIGLYCRIDES, VLDL, CHDL, HDLNON Passed - Visit with relevant provider in past year or upcoming 90 days Recent Visits Date Type Provider Dept 07/08/22 Office Visit Dedrick Carr MD [facility] Pulm & Sleep [place] [facility] 06/05/22 Office Visit [facility] [place] 03/18/22 Office Visit [facility] [place] 03/12/22 Office Visit Dedrick Carr MD [facility] Pulm & Sleep [place] [facility] 12/04/21 Office Visit Dedrick Carr MD [facility] Pul & Sleep [place] [facility] Showing recent visits within past 365 days and meeting all other requirements Future Appointments No visits were found meeting these conditions. Showing future appointments within next 90 days and meeting all other requirements documented in this encounter Plan of Treatment Upcoming Encounters Date Type Department Care Team (Late st Contact Info) Description 11/11/2024 11:30 AM CDT Office Visit [facility] - Pulmonology & Sleep Medicine [facility] [address] [place] [address] Dedrick Carr MD #[address] [place] [address] 12/16/2024 2:15 PM CDT Office Visit [facility] - Endocrinology - [place] [address] [place] [address] Robert Lowery MD #[address] [address] 12/16/2024 3:30 PM CDT Office Visit [facility] - Primary Care - [place] [address] [place] [address] Felisha Ware, FIRE CAPTAIN, FILM EXAMINER [address] [place], [place] [address] 01/27/2025 10:00 AM CDT Office Visit [facility] - Cardiology - [place] [address] [place] [address] Khadijah Garay APRN, FILM EXAMINER #[address] [place] [address] documented as of this encounter Visit Diagnoses Diagnosis Hyperlipidemia, unspecified documented in this encounter Additional Health Concerns Infection Onset Date Last Indicated Resolved Time COVID - 19 05/16/2024 05/16/2024 05/16/2024 11:1 4 AM ANGULAR DEVELOPER documented as of this encounter Care Teams Acquisition Consultant Relationship Specialty Start Date End Date Tres Granado MD [address] [place] [address] PCP - General Family Medicine 06/25/22 09/03/22 Abdullahi Wilson MD [address] [place] [address] PCP - General Internal Medicine 09/04/22 08/02/23 Juanis Can MD [address] [place] [address] PCP - General Family Medicine 08/03/23 06/12/24 Felisha Ware, FIRE CAPTAIN, FILM EXAMINER [address] [place] [address] PCP - General Certified Nurse Practitioner 06/13/24 Mio Peck MD [address] [place] [address] Consulting Physician Orthopaedic Surgery 09/04/22 Dedrick Carr MD [address] [place] [address] Consulting Physician Pulmonary Disease 09/04/22 Cesar Manning [address] [facility] [address] [place] [address] Consulting Physician Orthopaedic Sports Medicine 09/04/22 Edson Osborne MD Consulting Physician Orthopaedic Surgery 09/04/22 09/04/22 Cindy Oliver DPM [address] [place] [address] Consulting Physician Podiatry 07/22/22 03/08/24 Junior Wallace MD [address] [place] [address] Consulting Physician Cardiovascular Disease - Cardiology 10/20/22 07/26/23 Alycia Cole, FIRE CAPTAIN, FILM EXAMINER [address] [facility] [place] [address] [place] [address] Nurse Practitioner Advanced Practice Nurse 05/18/23 Con Fox MD [address] [facility] [address] [place] [address] Care Associate Internal Medicine 12/10/23 Robert Lowery MD [address] [facility] [address] [place] [address] Consulting Physician Endocrinology 02/03/24 documented as of this encounter
--- OUTSIDE RECORDS SUMMARY | 2024-10-11 10:52 | XMS_ITS | Encounter Summary ---
Author Organization [facility] Address [address] [place] [address] Phone Care Team Providers Care Flap Curer Name Role Phone Mio Peck MD Unavailable Dedrick Carr MD Unavailable Cesar Manning Unavailable Con Fox MD Unavailable [phone] Robert Lowery MD Unavailable Felisha Ware APRN, SMALL ELECTRIC ENGINE TECHNICIAN Primary Care Provider [phone] Reason for Referral * Radiology Services (Routine) - Open Specialty Diagnoses / Procedures Referred By Contcj t Referred To Contact Radiology Diagnoses Breast asymmetry Procedures [facility] US BREAST LIMITED LT Felisha Ware APRN, SMALL ELECTRIC ENGINE TECHNICIAN [address] [place] [address] Phone: tel: fax: Referral ID Status Reason Start Date Expiration Date Visits Re quested Visits Authorized [id number] Open 10/10/2024 1 1 * Radiology Services (Routine) - Authorized Specialty Diagnoses / Procedures Referred By Soha byrne Referred To Contact Radiology Diagnoses Breast asymmetry Procedures [facility] DIAG LEFT UNILATERAL DIGITAL W CAD W ALFIE Felisha Ware APRN, KIMBERLYN [address] [place] [address] Phone: tel: fax: Referral ID Status Reason Start Date Expiration Date V isits Requested Visits Authorized [id number] Authorized 10/10/2024 1 1 Reason for Visit * Reason Onset Date Comments Results 10/10/2024 mammogram Encounter Details Date Type Department Care Team (Late st Contact Info) Description 10/10/2024 Telephone [facility] - Primary Care - [place] [address] [place] [phone] Felisha Ware APRN, KIMBERLYN [address] [place] [address] Results (mammogram) Social History Tobacco Use Types Packs/Day Years Used Date Smoking Tobacco: Former Cigarettes 0.5 15 0 06/05/2007 - 06/04/2022 Smokeless Tobacco: Never Alcohol Use Standard Drinks/Week Comments Yes 2 (1 standard drink = 0.6 oz pur e alcohol) [facility] Utilities Answer Date Recorded In the past 12 months has [employer] gas, oil, or water [employer] threatened to shut off services in your [...] 06/01/2024 How often do you attend chur or temple services? 1 to 4 times per year 06/01/2024 Do you belong to any clubs o r organizations such as hindu groups, unions, fraternal or athletic groups, or [...] Total Score - Questions 1-9 0 05/07 [facility] - Occupational Stress Questionnaire Answer Date Recorded [...] place to sleep or slept in a care home (including now)? No 07/29/2023 Housing Stability Vital Sign Answer Christian e Recorded In the last 12 months, was t here a time when you were not able to pay the mortgage or rent on time? No 06/01/2024 In the past 12 months, how m any times have you moved where you were living? 0 06/01/2024 At any time in the past 12 m [facility], were you homeless or living in a care home (including now)? No 06/01/2024 Education Answer Date [...] encounter Miscellaneous Notes * Telephone Encounter - Dinorah Angeles RN - 10/10/2024 2:23 PM CDT Jayla notified, verbalized understanding. * Telephone Encounter - Felisha Ware APRN, CNP - 10/10/2024 2:12 PM CDT Diagnostic mammogram and US, ordered. documented in this encounter Plan of Treatment Upcoming Encounters Date Type Department Care Team (Late st Contact Info) Description 11/11/2024 11:30 AM CDT Office Visit [facility] - Pulmonology & Sleep Medicine - [place] [address] [place] [phone] Dedrick Carr MD [address] [place] [address] 12/16/2024 2:15 PM CDT Office Visit [facility] - Endocrinology - [place] [address] [place] [phone] Robert Lowery MD [address] [phone] 12/16/2024 3:30 PM CDT Office Visit [facility] - Primary Care - [place] [address] [place] [phone] Felisha Ware APRN, SMALL ELECTRIC ENGINE TECHNICIAN [address] [place], [place] [phone] 01/27/2025 10:00 AM CDT Office Visit [facility] - Cardiology - [place] [address] [place] [address] Khadijah Garay APRN, KIMBERLYN [address] [place] [address] Scheduled Orders Name Type Priority Associated Diagnoses Orde r Schedule AISLINN DIAG LEFT UNILATERAL DIGITAL W CAD W ALFIE Imaging Routine Breast asymmetry Expected: 10/10/2024, Expires: 01/10/2025 [facility] US BREAST LIMITED LT Imaging Routine Breast asymmetry Expected: 10/10/2024, Expires: 12/09/2024 documented as of this encounter Visit Diagnoses Diagnosis Breast asymmetry- Primary Other specified disorders of breast documented in this encounter Additional Health Concerns Assessment Noted Time PHQ-9 Depression Total Score: 0 05/25/19 25 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 [address] PCP - General Certified Nurse Practitioner 06/13/24 Mio Peck MD [address] [place] [address] Consulting Physician Orthopaedic Surgery 09/04/22 Dedrick Carr MD [address] [place] [phone] Consulting Physician Pulmonary Disease 09/04/22 Cesar Manning [address] [address] Consulting Physician Orthopaedic Sports Medicine 09/04/22 Con Fox MD [address] [address] Core Machine Operator Internal Medicine 12/10/23 Robert Lowery MD [address] [phone] Consulting Physician Endocrinology 02/03/24 documented as of this encounter
--- OUTSIDE RECORDS SUMMARY | 2024-10-11 10:53 | XMS_ITS | Data Portability ---
Author Organization [facility] Address [address] [place] [address] Care Team Providers Care Pension Fund Manager Name Role Phone JIN GUTHRIE Company Doctor JENNIFER THOMAS Vascular Surgeon FUNMILAYO PETERS Bpm Developer TRES GRANADO Primary Care Provider Assessment Encounter Date Assessment Date Assessment LastModified by Organization Details LastModified Time 07/18/2022 07/18/2022 Pt's case was discussed w/resident. Documentation was reviewed, and I agree w/resident's note. Dr. Fregoso [email or web address] Not available 07/22/2022 07:29:56 Plan of Treatment Reminders Order Date Submit Date Provider Last Modified By Organization Details Last Modified Time Details Appointments NEW PATIEN T 30 2024 01:00P Williams AGUIRRE, [facility] Not available Not available Not available Lab HbA1c (hemog lobin A1c), blood 2022 023 [facility], [address], [place], [address], 07/21/2022 10:05:09 CMP, serum or plasma 2022 023 [facility], [address], [address], [place], [address], 07/19/2022 06:16:18 CBC w/ auto diff 2022 023 [facility], [address] [facility], [facility] [address], [place], [address], 07/19/2022 06:16:19 urinal ysis, dipsti ck 2022 023 RO[facility] In-Office Order, Internal Use Only DO Not Attach Compendium DO Not Attach Compendium, Do Not Delete/merge, 05/23/2022 08:42:15 cultur e, urine 2022 023 [facility], [address] [facility], [facility] [address], [place], [address], 05/22/2022 19:34:58 rapid flu (A+B) 2022 023 [email or web address] In-Office Order, Internal Use Only DO Not Attach Compendium DO Not Attach Compendium, Do Not Delete/merge, 05/22/2022 23:48:40 urinal ysis, dipsti ck 2022 023 [email or web address] In-Office Order, Internal Use Only DO Not Attach Compendium DO Not Attach Compendium, Do Not Delete/merge, 04/08/2022 15:56:13 Referral None record ed. Procedures colono scopy screen ing (PROC) 2022 023 ATHENAFAX [facility]) Scheduling, [address] [place], [address], 06/24/2022 17:35:18 Surgeries None record ed. Imaging MAMMO, screen ing, digita l, bilate ral 2024 025 RO[facility] (Radiology), [address] [place], [address], 10/11/2024 11:48:54 MAMMO, screen ing, digita l, bilate ral 2022 023 RO[facility] (Radiology), [address] [place], [address], 06/23/2023 15:06:18 MRI, kidney , w/ contra st - Auth #: [id number] from 2022-0 024. 2022 023 puma perrin [facility], [address] [place], [address], 11/05/2022 11:54:11 XR, chest, 2 view 2022 023 ATHENAFAX [facility], [address] [place], [address], 05/23/2022 07:39:41 Medication Orders Saline Nasal 0.65 % spray aeroso l 2022 023 [id number] [facility], [facility] [employer] [place], [id number], 05/22/2022 19:34:56 Incrus e Ellipt a 62.5 mcg/ac tuatio n powder for inhala tion 2022 023 [facility] [id number] In [facility], [facility] [employer] [place], [id number], 05/22/2022 19:34:56 Nicore tte 2 mg gum 2022 023 [email or web address] [facility] [id number] In [facility], [facility] [employer] [place], [id number], 04/08/2022 18:34:36 Patient TargetsNo targets recorded. Patient Instructions Encounter Date Encounter Id Patient Instructions Last Modified By Organization Details Last Modified Time 04/08/2022 [id number] A healthy lifestyle: care instructions Not available 04/08/2022 15:56:13 Quitting Tobacco: Care Instructions Not available 04/08/2022 15:56:13 On the date of this encounter, I was immediately available to assist the resident/fellow in the care of the patient, and have reviewed and agree with the resident s findings and plan of care. [email or web address] Not available 04/16/2022 10:46:44 05/22/2022 [id number] I discussed the patient s presentation, findings, assessment and plan with the resident during or immediately after the time of service. I agree with the resident s findings, assessment, and plan as documented in the note above. Jonathon Cole MD. [facility] [email or web address] Not available 05/22/2022 16:49:21 07/18/2022 [id number] A healthy lifestyle: care instructions Not available 07/21/2022 13:17:11 Quitting Tobacco: Care Instructions Not available 07/21/2022 13:17:11 10/14/2022 [id number] mammogram: about this test [email or web address] Not available 10/14/2022 09:43:17 07/21/2024 [id number] mammogram: about this test [email or web address] Not available 07/21/2024 17:17:47 Reason for Referral None Reported. Results Created Date Observation Date Name Description Value Unit Range Abnormal Flag Note LastModifiedBy Organization Detail LastModifiedTime 04/08/1904/08/2022 urina lysis , dipst ick Leukocytes Negati ve Not Available In-Office Order Internal Use Only DO Not Attach Compendium DO Not Attach Compendium, Do Not Delete/merge, [id number] 04/08/2022 15:17:58 04/08/1904/08/2022 urina lysis , dipst ick Nitrite negati ve Not Available In-Office Order Internal Use Only DO Not Attach Compendium DO Not Attach Compendium, Do Not Delete/merge, [id number] 04/08/2022 15:17:58 04/08/1904/08/2022 urina lysis , dipst ick Urobilinogen .2 Not Available In-Of fice Order Internal Use Only DO Not Attach Compendium DO Not Attach Compendium, Do Not Delete/merge, [id number] 04/08/2022 15:17:58 04/08/19 23 04/08/2022 urina lysis , dipst ick Protein Negati ve Not Available In-Office Order Internal Use Only DO Not Attach Compendium DO Not Attach Compendium, Do Not Delete/merge, 04/08/2022 15:17:58 04/08/19 23 04/08/2022 urina lysis , dipst ick pH 5.5 Not Available In-Office Order Internal Use Only DO Not Attach Compendium DO Not Attach Compendium, Do Not Delete/merge, 04/08/2022 15:17:58 04/08/19 23 04/08/2022 urina lysis , dipst ick Blood Negati ve Not Available In-Office Order Internal Use Only DO Not Attach Compendium DO Not Attach Compendium, Do Not Delete/merge, 04/08/2022 15:17:58 04/08/19 23 04/08/2022 urina lysis , dipst ick Specific K[place]ett 1.005 Not Available In-Off ice Order Internal Use Only DO Not Attach Compendium DO Not Attach Compendium, Do Not Delete/merge, 04/08/2022 15:17:58 04/08/19 23 04/08/2022 urina lysis , dipst ick Ketone Negati ve Not Available In-Office Order Internal Use Only DO Not Attach Compendium DO Not Attach Compendium, Do Not Delete/merge, 04/08/2022 15:17:58 04/08/19 23 04/08/2022 urina lysis , dipst ick Bilirubin Negati ve Not Available In-Office Order Internal Use Only DO Not Attach Compendium DO Not Attach Compendium, Do Not Delete/merge, 04/08/2022 15:17:58 04/08/19 23 04/08/2022 urina lysis , dipst ick Glucose Negati ve Not Available In-Office Order Internal Use Only DO Not Attach Compendium DO Not Attach Compendium, Do Not Delete/merge, 04/08/2022 15:17:58 04/08/1904/08/2022 urina lysis , dipst ick Appearance Clear Not Available In-Offi ce Order Internal Use Only DO Not Attach Compendium DO Not Attach Compendium, Do Not Delete/merge, 04/08/2022 15:17:58 04/08/19 23 04/08/2022 urina lysis , dipst ick Color Pale Yellow Not Available In-Office Order Internal Use Only DO Not Attach Compendium DO Not Attach Compendium, Do Not Delete/merge, [id number] 04/08/2022 15:17:58 05/22/19 23 05/22/2022 rapid flu (A+B) Flu A negati ve Not Available In-Office Order Internal Use Only DO Not Attach Compendium DO Not Attach Compendium, Do Not Delete/merge, [id number] 05/22/2022 15:30:57 05/22/19 23 05/22/2022 rapid flu (A+B) Flu B negati ve Not Available In-Office Order Internal Use Only DO Not Attach Compendium DO Not Attach Compendium, Do Not Delete/merge, [id number] 05/22/2022 15:30:57 05/23/19 23 05/23/2022 urina lysis , dipst ick Leukocytes Negati ve Not Available In-Office Order Internal Use Only DO Not Attach Compendium DO Not Attach Compendium, Do Not Delete/merge, [id number] 05/22/2022 16:04:35 05/23/19 23 05/23/2022 urina lysis , dipst ick Nitrite negati ve Not Available In-Office Order Internal Use Only DO Not Attach Compendium DO Not Attach Compendium, Do Not Delete/merge, [facility] 05/22/2022 16:04:35 05/23/19 23 05/23/2022 urina lysis , dipst ick Urobilinogen .2 Not Available In-Of fice Order Internal Use Only DO Not Attach Compendium DO Not Attach Compendium, Do Not Delete/merge, [id number] 05/22/2022 16:04:35 05/23/19 23 05/23/2022 urina lysis , dipst ick Protein Negati ve Not Available In-Office Order Internal Use Only DO Not Attach Compendium DO Not Attach Compendium, Do Not Delete/merge, [id number] 05/22/2022 16:04:35 05/23/19 23 05/23/2022 urina lysis , dipst ick pH 6.5 Not Available In-Office Order Internal Use Only DO Not Attach Compendium DO Not Attach Compendium, Do Not Delete/merge, [facility] 05/22/2022 16:04:35 05/23/19 23 05/23/2022 urina lysis , dipst ick Blood Non-He molyze d: Trace Not Available In-Office Order Internal Use Only DO Not Attach Compendium DO Not Attach Compendium, Do Not Delete/merge, [facility] 05/22/2022 16:04:35 05/23/19 23 05/23/2022 urina lysis , dipst ick Specific K[place]ett 1.030 Not Available In-Off ice Order Internal Use Only DO Not Attach Compendium DO Not Attach Compendium, Do Not Delete/merge, [facility] 05/22/2022 16:04:35 05/23/19 23 05/23/2022 urina lysis , dipst ick Ketone Negati ve Not Available In-Office Order Internal Use Only DO Not Attach Compendium DO Not Attach Compendium, Do Not Delete/merge, [facility] 05/22/2022 16:04:35 05/23/19 23 05/23/2022 urina lysis , dipst ick Bilirubin Negati ve Not Available In-Office Order Internal Use Only DO Not Attach Compendium DO Not Attach Compendium, Do Not Delete/merge, [id number] 05/22/2022 16:04:35 05/23/19 23 05/23/2022 urina lysis , dipst ick Glucose Negati ve Not Available In-Office Order Internal Use Only DO Not Attach Compendium DO Not Attach Compendium, Do Not Delete/merge, [facility] 05/22/2022 16:04:35 05/23/19 23 05/23/2022 urina lysis , dipst ick Appearance Clear Not Available In-Offi ce Order Internal Use Only DO Not Attach Compendium DO Not Attach Compendium, Do Not Delete/merge, 05/22/2022 16:04:35 05/23/19 23 05/23/2022 urina lysis , dipst ick Color Yellow Not Available In-Office Order Internal Use Only DO Not Attach Compendium DO Not Attach Compendium, Do Not Delete/merge, [facility] 05/22/2022 16:04:35 07/19/19 23 07/18/2022 COMP. METAB OLIC PANEL (14) glucose 90 mg/dL 65-99 ANION GP 15.0 mmol/ L N OSMOL 280.0 mOsM/ L N REFER ENCE RANGE : 275.0 -301. 0 Not Available [facility] [address] [place], [address], 07/19/2022 06:16:18 07/19/19 23 07/18/2022 COMP. METAB OLIC PANEL (14) BUN 11 mg/dL 8-26 Not Available [facility] [address] [place], [address], 07/19/2022 06:16:18 07/19/19 23 07/18/2022 COMP. METAB OLIC PANEL (14) creatinine 0.64 mg/dL 0.50-1 .40 Not Available [facility] [address] [place], [address], 07/19/2022 06:16:18 07/19/19 23 07/18/2022 COMP. METAB OLIC PANEL (14) eGFR 101 mL/mi n/1.7 3 >=60 Not Available [facility] [address] [place], [address], 07/19/2022 06:16:18 07/19/19 23 07/18/2022 COMP. METAB OLIC PANEL (14) BUN/creatini ne ratio 18.0 Not Available [facility] Department [address] [place], [address], 07/19/2022 06:16:18 07/19/19 23 07/18/2022 COMP. METAB OLIC PANEL (14) sodium 141.0 mmol/ L 136.0- 144.0 Not Available [facility] [address] [place], [address], 07/19/2022 06:16:18 07/19/19 23 07/18/2022 COMP. METAB OLIC PANEL (14) potassium 3.7 mmol/ L 3.5-5. 3 Not Available [facility] [address] [place], [address], 07/19/2022 06:16:18 07/19/19 23 07/18/2022 COMP. METAB OLIC PANEL (14) chloride 103 mmol/ l 101-11 1 Not Available [facility] [address] [place], [address], 07/19/2022 06:16:18 07/19/19 23 07/18/2022 COMP. METAB OLIC PANEL (14) carbon dioxide, total 26.8 mmol/ L 21.0-3 2.0 Not Available [facility] [address] [place], [address], 07/19/2022 06:16:18 07/19/19 23 07/18/2022 COMP. METAB OLIC PANEL (14) calcium 9.8 mg/dL 8.2-10 .0 Not Available [facility] [address] [place], [address], 07/19/2022 06:16:18 07/19/19 23 07/18/2022 COMP. METAB OLIC PANEL (14) protein, total 7.6 g/dL 6.7-8. 2 Not Available [facility] [address] [place], [address], 07/19/2022 06:16:18 07/19/19 23 07/18/2022 COMP. METAB OLIC PANEL (14) albumin 4.5 g/dL 3.5-5. 5 Not Available [facility] [address] [place], [address], 07/19/2022 06:16:18 07/19/19 23 07/18/2022 COMP. METAB OLIC PANEL (14) globulin, total 3.1 g/dL 1.5-4. 5 Not Available [facility] [address] [place], [address], 07/19/2022 06:16:18 07/19/19 23 07/18/2022 COMP. METAB OLIC PANEL (14) A/G ratio 1.0 Not Available [facility] Department [address] [place] [address], [address], 07/19/2022 06:16:18 07/19/19 23 07/18/2022 COMP. METAB OLIC PANEL (14) bilirubin, total 0.2 mg/dL 0.0-1. 2 Not Available [facility] [address] [place] [address], [address], 07/19/2022 06:16:18 07/19/19 23 07/18/2022 COMP. METAB OLIC PANEL (14) alkaline phosphatase 110.2 IU/L 42.0-1 21.0 Not Available [facility] [address] [place] [address], [address], 07/19/2022 06:16:18 07/19/19 23 07/18/2022 COMP. METAB OLIC PANEL (14) AST (SGOT) 26.9 U/L 10.0-4 2.0 Not Available [facility] [address] [place] [address], [address], 07/19/2022 06:16:18 07/19/19 23 07/18/2022 COMP. METAB OLIC PANEL (14) ALT (SGPT) 26.6 U/L 10.0-6 0.0 Not Available [facility] [address] [place] [address], [address], 07/19/2022 06:16:18 07/19/19 23 07/18/2022 CBC WITH DIFFE RENTI AL/PL ATELE T WBC 6.7 K/uL 3.4-10 .8 Not Available [facility] [address] [place] [address], [address], 07/19/2022 06:16:19 07/19/19 23 07/18/2022 CBC WITH DIFFE RENTI AL/PL ATELE T RBC 4.4 M/uL 4.2-5. 4 Not Available [facility] [address] [place], [address], 07/19/2022 06:16:19 07/19/1907/18/2022 CBC WITH DIFFE RENTI AL/PL ATELE T hemoglobin 13.6 g/dL 11.5-1 5.5 Not Available [facility] [address] [place], [address], 07/19/2022 06:16:19 07/19/19 23 07/18/2022 CBC WITH DIFFE RENTI AL/PL ATELE T hematocrit 41.3 % 36.0-4 8.0 Not Available [facility] [address] [place], [address], 07/19/2022 06:16:19 07/19/1907/18/2022 CBC WITH DIFFE RENTI AL/PL ATELE T MCV 94 fL 80-95 Not Available [facility] [address] [place], [address], 07/19/2022 06:16:19 07/19/1907/18/2022 CBC WITH DIFFE RENTI AL/PL ATELE T MCH 31 pg 27-32 Not Available [facility] [address] [place], [address], 07/19/2022 06:16:19 07/19/1907/18/2022 CBC WITH DIFFE RENTI AL/PL ATELE T MCHC 33 g/dL 32-36 Not Available [facility] [address] [place], [address], 07/19/2022 06:16:19 07/19/1907/18/2022 CBC WITH DIFFE RENTI AL/PL ATELE T RDW 13.0 % 11.5-1 4.5 Not Available [facility] [address] [place], [address], 07/19/2022 06:16:19 07/19/1907/18/2022 CBC WITH DIFFE RENTI AL/PL ATELE T platelets 312 K/uL 155-37 9 MPV 9.2 FL 8.9-1 2.7 N Not Available [facility] [address] [place], [address], 07/19/2022 06:16:19 07/19/1907/18/2022 CBC WITH DIFFE RENTI AL/PL ATELE T neutrophils 45.5 % 40.0-7 4.0 Not Available [facility] [address] [place], [address], 07/19/2022 06:16:19 07/19/1907/18/2022 CBC WITH DIFFE RENTI AL/PL ATELE T lymphs 42.8 % 14.0-4 6.0 Not Available [facility] [address] [place], [address], 07/19/2022 06:16:19 07/19/1907/18/2022 CBC WITH DIFFE RENTI AL/PL ATELE T monocytes 9.5 % 4.0-12 .0 Not Available [facility] [address] [place], [address], 07/19/2022 06:16:19 07/19/1907/18/2022 CBC WITH DIFFE RENTI AL/PL ATELE T eos 1 % 0-5 Not Available [facility] [address] [place], [address], 07/19/2022 06:16:19 07/19/1907/18/2022 CBC WITH DIFFE RENTI AL/PL ATELE T basos 0.7 % 0.0-1. 0 Not Available [facility] [address] [place], [address], 07/19/2022 06:16:19 07/19/1907/18/2022 CBC WITH DIFFE RENTI AL/PL ATELE T neutrophils (absolute) 3.1 K/uL 1.4-7. 0 Not Available [facility] [address] [place], [address], 07/19/2022 06:16:19 07/19/1907/18/2022 CBC WITH DIFFE RENTI AL/PL ATELE T lymphs (absolute) 2.9 K/uL 0.7-3. 1 Not Available [facility] [address] [place], [address], 07/19/2022 06:16:19 07/19/1907/18/2022 CBC WITH DIFFE RENTI AL/PL ATELE T monocytes(ab solute) 0.6 K/uL 0.1-0. 9 Not Available [facility] [address] [place], [address], 07/19/2022 06:16:19 07/19/1907/18/2022 CBC WITH DIFFE RENTI AL/PL ATELE T eos (absolute) 0.1 K/uL 0.0-0. 4 Not Available [facility] [address] [place], [address], 07/19/2022 06:16:19 07/19/1907/18/2022 CBC WITH DIFFE RENTI AL/PL ATELE T baso (absolute) 0.1 K/uL 0.0-0. 3 Not Available [facility] [address] [place], [address], 07/19/2022 06:16:19 07/19/1907/18/2022 CBC WITH DIFFE RENTI AL/PL ATELE T immature granulocytes 0.3 % Not Available [facility] Department [address] [place], [address], 07/19/2022 06:16:19 07/19/1907/18/2022 CBC WITH DIFFE RENTI AL/PL ATELE T immature grans (abs) 0.0 K/uL Not Available [facility] Department [address] [place], [address], 07/19/2022 06:16:19 07/19/19 23 07/18/2022 CBC WITH DIFFE RENTI AL/PL ATELE T NRBC 0 % Not Available [facility] [address] [place], [address], 07/19/2022 06:16:19 07/27/19 24 07/28/2023 Hepat itis C virus Ab Signa l/Cut off in Serum or Plasm a by Immun oassa y hepatitis C virus Ab signal/cutof f in serum or plasma by immunoassay 0.1 text: <1 S/co hepat itis C antib shira 0.10 <1 S/CO 07/27 4:12 PM CDT [facility] Not Available Not Available 07/15/2024 03:37:47 07/27/19 24 07/28/2023 Hepat itis C virus Ab Signa l/Cut off in Serum or Plasm a by Immun oassa y interpretati on and review of laboratory results Normal Not Available Not Available 07/05 03:37:47 05/16/19 25 05/16/2024 Influ hilda virus A and B and SARS- CoV-2 (COVI D-19) and Respi rator y syncy tial virus RNA panel - Respi rator y syste m speci men by ANAY with probe detec tion influenza virus A RNA [presence] in upper respiratory specimen by ANAY with probe detection Negati ve text: negati ve, error FLU A Negat timmy Negat timmy, Error 05/16 11:14 AM [employer] METAL [facility] Not Available Not Available 07/15/2024 03:37:46 05/16/19 25 05/16/2024 Influ hilda virus A and B and SARS- CoV-2 (COVI D-19) and Respi rator y syncy tial virus RNA panel - Respi rator y syste m speci men by ANAY with probe detec tion influenza virus B RNA [presence] in upper respiratory specimen by ANAY with probe detection Negati ve text: negati ve FLU B Negat timmy Negat timmy 05/16 11:14 AM [employer] METAL [facility] Not Available Not Available 07/15/2024 03:37:46 05/16/1905/16/2024 Influ hilda virus A and B and SARS- CoV-2 (COVI D-19) and Respi rator y syncy tial virus RNA panel - Respi rator y syste m speci men by ANAY with probe detec tion respiratory syncytial virus RNA [presence] in respiratory system specimen by ANAY with probe detection Negati ve text: negati ve RESP SYNC VIRUS Negat timmy Negat timmy 05/16 11:14 AM [employer] [facility] Not Available Not Available 07/15/2024 03:37:46 05/16/1905/16/2024 Influ hilda virus A and B and SARS- CoV-2 (COVI D-19) and Respi rator y syncy tial virus RNA panel - Respi rator y syste m speci men by ANAY with probe detec tion sars-cov-2 (covid-19) N gene [presence] in specimen by ANAY with probe detection NOT DETECT ED text: (refer ence range for this test IS not detect ed) SARSC OV2 NOT DETEC GEOVANNA (Refe rence Range for this test is Not Detec geovanna) 05/16 11:14 AM [employer] MET[employer] [facility] Not Available Not Available 07/15/2024 03:37:46 05/16/19 25 05/16/2024 Influ hilda virus A and B and SARS- CoV-2 (COVI D-19) and Respi rator y syncy tial virus RNA panel - Respi rator y syste m speci men by ANAY with probe detec tion interpretati on and review of laboratory results Normal Not Available Not Available 07/05 03:37:46 06/11/1906/10/2024 Hemog lobin A1c/H emogl obin. total in Blood hemoglobin A1C/hemoglob in.total in blood 5.8 % low: 4%high : 6% HGB-A 1C 5.8 4 - 6 % Not Available Not Available 07/15/2024 03:37:47 06/14/1906/13/2024 CBC W Auto Diffe renti al panel - Blood leukocytes [#/volume] in blood by automated count 6.59 text: 4.00 - 12.00 10(3)/ mcL WBC 6.59 4.00 - 12.00 10(3) /mcL 06/13 1:10 PM CDT [facility] Not Available Not Available 07/15/2024 03:37:46 06/14/1906/13/2024 CBC W Auto Diffe renti al panel - Blood erythrocytes [#/volume] in blood by automated count 4.13 text: 3.80 - 5.30 10(6)/ mcL RBC 4.13 3.80 - 5.30 10(6) /mcL 06/13 1:10 PM CDT [facility] Not Available Not Available 07/15/2024 03:37:46 06/14/1906/13/2024 CBC W Auto Diffe renti al panel - Blood hemoglobin [mass/volume ] in blood 13 g/dL low: 12g/dL high: 15.8g/ dL HEMOG LOBIN (HGB) 13.0 12.0 - 15.8 g/dL 06/13 1:10 PM CDT [facility] Not Available Not Available 07/15/2024 03:37:46 06/14/1906/13/2024 CBC W Auto Diffe renti al panel - Blood hematocrit [volume fraction] of blood by automated count 39.5 % low: 36%hig h: 47% HEMAT OCRIT (HCT) 39.5 36.0 - 47.0 % 06/13 1:10 PM CDT [facility] Not Available Not Available 07/15/2024 03:37:46 06/14/19 25 06/13/2024 CBC W Auto Diffe renti al panel - Blood MCV [entitic mean volume] in red blood cells by automated count 95.6 fL low: 82fLhi gh: 96fL MCV 95.6 82.0 - 96.0 fL 06/13 1:10 PM CDT [facility] Not Available Not Available 07/15/2024 03:37:46 06/14/19 25 06/13/2024 CBC W Auto Diffe renti al panel - Blood MCH [entitic mass] by automated count 31.5 pg low: 26pghi gh: 34pg MCH 31.5 26.0 - 34.0 pg 06/13 1:10 PM CDT [facility] Not Available Not Available 07/15/2024 03:37:46 06/14/1906/13/2024 CBC W Auto Diffe renti al panel - Blood MCHC [entitic mass/volume] in red blood cells by automated count 32.9 g/dL low: 31g/dL high: 36g/dL MCHC 32.9 31.0 - 36.0 g/dL 06/13 1:10 PM CDT [facility] Not Available Not Available 07/15/2024 03:37:46 06/14/1906/13/2024 CBC W Auto Diffe ramiroti al panel - Blood platelets [#/volume] in blood 295 text: 140 - 440 10(3)/ mcL PLATE LET COUNT 295 140 - 440 10(3) /mcL 06/13 1:10 PM CDT [facility] Not Available Not Available 07/15/2024 03:37:46 06/14/19 25 06/13/2024 CBC W Auto Diffe renti al panel - Blood erythrocyte [distwidth] in red blood cells by automated count 14.2 % low: 11.8%h igh: 15.5% RDW 14.2 11.8 - 15.5 % 06/13 1:10 PM CD[facility] Not Available Not Available 07/15/2024 03:37:46 06/14/19 25 06/13/2024 CBC W Auto Diffe renti al panel - Blood platelet [entitic mean volume] in blood by automated count 9 fL low: 9.7fLh igh: 12.4fL low MPV 9.0 (L) 9.7 - 12.4 fL 06/13 1:10 PM CDT [facility] Not Available Not Available 07/15/2024 03:37:46 06/14/1906/13/2024 CBC W Auto Diffe renti al panel - Blood neutrophils/ leukocytes in blood by automated count 54.8 % low: 47%hig h: 73% NEUTR OPHIL S 54.8 47.0 - 73.0 % 06/13 1:10 PM CDT [facility] Not Available Not Available 07/15/2024 03:37:46 06/14/1906/13/2024 CBC W Auto Diffe renti al panel - Blood lymphocytes/ leukocytes in blood by automated count 33.2 % low: 18%hig h: 42% LYMPH OCYTE S 33.2 18.0 - 42.0 % 06/13 1:10 PM CDT [facility] Not Available Not Available 07/15/2024 03:37:46 06/14/1906/13/2024 CBC W Auto Diffe renti al panel - Blood monocytes/le ukocytes in blood by automated count 9.7 % low: 4%high : 12% MONOC YTES 9.7 4.0 - 12.0 % 06/13 1:10 PM CDT [facility] Not Available Not Available 07/15/2024 03:37:46 06/14/19 25 06/13/2024 CBC W Auto Diffe renti al panel - Blood eosinophils/ leukocytes in blood by automated count 1.5 % low: 0%high : 5% EOSIN OPHIL S 1.5 0.0 - 5.0 % 06/13 1:10 PM CDT [facility] Not Available Not Available 07/15/2024 03:37:46 06/14/19 25 06/13/2024 CBC W Auto Diffe renti al panel - Blood basophils/le ukocytes in blood by automated count 0.8 % low: 0%high : 1% BASOP HILS 0.8 0.0 - 1.0 % 06/13 1:10 PM CDT [facility] [employer] [facility] Not Available Not Available 07/15/2024 03:37:46 06/14/19 25 06/13/2024 CBC W Auto Diffe renti al panel - Blood neutrophils [#/volume] in blood by automated count 3.61 text: 1.60 - 7.70 10(3)/ mcL [place]OL [place] NEUTR OPHIL S 3.61 1.60 - 7.70 10(3) /mcL 06/13 1:10 PM CDT [facility] Not Available Not Available 07/15/2024 03:37:46 06/14/1906/13/2024 CBC W Auto Diffe renti al panel - Blood lymphocytes [#/volume] in blood by automated count 2.19 text: 1.30 - 3.20 10(3)/ mcL [place] LYMPH OCYTE S 2.19 1.30 - 3.20 10(3) /mcL 06/13 1:10 PM CDT [facility] Not Available Not Available 07/15/2024 03:37:46 06/14/19 25 06/13/2024 CBC W Auto Diffe renti al panel - Blood monocytes [#/volume] in blood by automated count 0.64 text: 0.20 - 1.00 10(3)/ mcL [place] MONOC YTES 0.64 0.20 - 1.00 10(3) /mcL 06/13 1:10 PM CDT [facility] Not Available Not Available 07/15/2024 03:37:46 06/14/19 25 06/13/2024 CBC W Auto Diffe renti al panel - Blood eosinophils [#/volume] in blood by automated count 0.1 text: 0.00 - 0.40 10(3)/ mcL [place] EOSIN OPHIL 0.10 0.00 - 0.40 10(3) /mcL 06/13 1:10 PM CDT [facility] Not Available Not Available 07/15/2024 03:37:46 06/14/19 25 06/13/2024 CBC W Auto Diffe renti al panel - Blood basophils [#/volume] in blood by automated count 0.05 text: 0.00 - 0.10 10(3)/ mcL [place] BASOP HILS 0.05 0.00 - 0.10 10(3) /mcL 06/13 1:10 PM CDT [facility] Not Available Not Available 07/15/2024 03:37:46 06/14/19 25 06/13/2024 CBC W Auto Diffe renti al panel - Blood nucleated erythrocytes /leukocytes [ratio] in blood 0 NRBC PER 100 WBC 0 06/13 1:10 PM CDT [facility] Not Available Not Available 07/15/2024 03:37:46 06/14/19 25 06/13/2024 CBC W Auto Diffe renti al panel - Blood interpretati on and review of laboratory results Abnorm al Not Available Not Available 03:37:46 06/14/19 25 06/13/2024 Lipid 1996 panel - Serum or Plasm a cholesterol [mass/volume ] in serum or plasma 137 mg/dL high: 200mg/ dL DARIUS STERO L 137 <200 mg/dL 06/13 1:28 PM CDT [facility] Not Available Not Available 07/15/2024 03:37:46 06/14/19 25 06/13/2024 Lipid 1996 panel - Serum or Plasm a triglyceride [mass/volume ] in serum or plasma 58 mg/dL high: 150mg/ dL TRIGL YCERI BEN 58 <150 mg/dL 06/13 1:28 PM CDT [facility] Not Available Not Available 07/15/2024 03:37:46 06/14/19 25 06/13/2024 Lipid 1996 panel - Serum or Plasm a cholesterol in HDL [mass/volume ] in serum or plasma 47 mg/dL low: 40mg/d L HDL DARIUS STERO L 47 >40 mg/dL 06/13 1:28 PM CDT [facility] Not Available Not Available 07/15/2024 03:37:46 06/14/19 25 06/13/2024 Lipid 1996 panel - Serum or Plasm a cholesterol in LDL [mass/volume ] in serum or plasma 78 mg/dL high: 130mg/ dL LDL 78 <130 mg/dL 06/13 1:28 PM CDT [facility] Not Available Not Available 07/15/2024 03:37:46 06/14/19 25 06/13/2024 Lipid 1996 panel - Serum or Plasm a cholesterol in VLDL [mass/volume ] in serum or plasma 12 mg/dL low: 10mg/d Lhigh: 50mg/d L VLDL 12 10 - 50 mg/dL 06/13 1:28 PM CDT [facility] Not Available Not Available 07/15/2024 03:37:46 06/14/19 25 06/13/2024 Lipid 1996 panel - Serum or Plasm a cholesterol. total/choles terol in HDL [mass ratio] in serum or plasma 2.9 low: 0high: 4.4 CHOL/ HDL RATIO 2.9 0.0 - 4.4 06/13 1:28 PM CDT [facility] Not Available Not Available 07/15/2024 03:37:46 06/14/19 25 06/13/2024 Lipid 1996 panel - Serum or Plasm a cholesterol non HDL [mass/volume ] in serum or plasma 90 mg/dL high: 130mg/ dL NON-H DL DARIUS STERO L 90 <130 mg/dL 06/13 1:28 PM CDT [facility] Not Available Not Available 07/15/2024 03:37:46 06/14/19 25 06/13/2024 Lipid 1996 panel - Serum or Plasm a IS the patient required to BE fasting? Yes IS THE PATIE NT REQUI RED TO BE FASTI NG? Yes 06/13 1:28 PM CDT [facility] Not Available Not Available 07/15/2024 03:37:46 06/14/1906/13/2024 Lipid 1996 panel - Serum or Plasm a has the patient been fasting? Yes HAS THE PATIE NT BEEN FASTI NG? Yes 06/13 1:28 PM CDT [facility] Not Available Not Available 07/15/2024 03:37:46 06/14/1906/13/2024 Compr ehens timmy metab olic 2000 panel - Serum or Plasm a sodium [moles/volum e] in serum or plasma 142 mmol/ L low: 136mmo l/Lhig h: 145mmo l/L SODIU M 142 136 - 145 mmol/ L 06/13 1:28 PM CDT [facility] Not Available Not Available 07/15/2024 03:37:46 06/14/1906/13/2024 Compr ehens timmy metab olic 2000 panel - Serum or Plasm a potassium [moles/volum e] in serum or plasma 4 mmol/ L low: 3.5mmo l/Lhig h: 5.1mmo l/L POTAS SIUM 4.0 3.5 - 5.1 mmol/ L 06/13 1:28 PM CDT [facility] Not Available Not Available 07/15/2024 03:37:46 06/14/1906/13/2024 Compr ehens timmy metab olic 2000 panel - Serum or Plasm a chloride [moles/volum e] in serum or plasma 109 mmol/ L low: 98mmol /Lhigh : 107mmo l/L high CHLOR SHAQ 109 (H) 98 - 107 mmol/ L 06/13 1:28 PM CDT [facility] Not Available Not Available 07/15/2024 03:37:46 06/14/19 25 06/13/2024 Compr ehens timmy metab olic 2000 panel - Serum or Plasm a carbon dioxide, total [moles/volum e] in serum or plasma 25 mmol/ L low: 22mmol /Lhigh : 30mmol /L CO2, VENOU S 25 22 - 30 mmol/ L 06/13 1:28 PM CDT [facility] Not Available Not Available 07/15/2024 03:37:46 06/14/1906/13/2024 Compr ehens timmy metab olic 1999 panel - Serum or Plasm a anion gap in serum or plasma by calculation 12 mmol/ L high: 18mmol /L ANION GAP 12.0 <18.0 mmol/ L 06/13 1:28 PM CDT [facility] Not Available Not Available 07/15/2024 03:37:46 06/14/1906/13/2024 Compr ehens timmy metab olic 1999 panel - Serum or Plasm a glucose [mass/volume ] in serum or plasma 102 mg/dL low: 70mg/d Lhigh: 99mg/d L high GLUCO SE 102 (H) 70 - 99 mg/dL 06/13 1:28 PM CDT [facility] Not Available Not Available 07/15/2024 03:37:46 06/14/1906/13/2024 Compr ehens timmy metab olic 2000 panel - Serum or Plasm a urea nitrogen [mass/volume ] in serum or plasma 12 mg/dL low: 10mg/d Lhigh: 20mg/d L BUN 12 10 - 20 mg/dL 06/13 1:28 PM CDT [facility] Not Available Not Available 07/15/2024 03:37:46 06/14/1906/13/2024 Compr ehens timmy metab olic 2000 panel - Serum or Plasm a creatinine [mass/volume ] in serum or plasma 0.75 mg/dL low: 0.6mg/ dLhigh : 1mg/dL CREAT ININE , BLOOD 0.75 0.60 - 1.00 mg/dL 06/13 1:28 PM CDT [facility] Not Available Not Available 07/15/2024 03:37:46 06/14/19 25 06/13/2024 Compr ehens timmy metab olic 1999 panel - Serum or Plasm a urea nitrogen/cre atinine [mass ratio] in serum or plasma 16 text: 12 - 20 ratio BUN/C REATI NINE RATIO 16 12 - 20 ratio 06/13 1:28 PM CDT [facility] Not Available Not Available 07/15/2024 03:37:46 06/14/19 25 06/13/2024 Compr ehens timmy metab olic 1999 panel - Serum or Plasm a protein [mass/volume ] in serum or plasma 7.4 g/dL low: 6g/dLh igh: 8g/dL TOTAL PROTE IN 7.4 6.0 - 8.0 g/dL 06/13 1:28 PM CDT [facility] Not Available Not Available 07/15/2024 03:37:46 06/14/1906/13/2024 Compr ehens timmy metab olic 1999 panel - Serum or Plasm a albumin [mass/volume ] in serum or plasma 4 g/dL low: 3.5g/d Lhigh: 5g/dL ALBUM IN 4.0 3.5 - 5.0 g/dL 06/13 1:28 PM CDT [facility] Not Available Not Available 07/15/2024 03:37:46 06/14/19 25 06/13/2024 Compr ehens timmy metab olic 1999 panel - Serum or Plasm a albumin/glob ulin [mass ratio] in serum or plasma 1.2 low: 1high: 2.2 A/G RATIO 1.2 1.0 - 2.2 06/13 1:28 PM CDT [facility] Not Available Not Available 07/15/2024 03:37:46 06/14/19 25 06/13/2024 Compr ehens timmy metab olic 1999 panel - Serum or Plasm a calcium [mass/volume ] in serum or plasma 9 mg/dL low: 8.7mg/ dLhigh : 10.5mg /dL CALCI UM 9.0 8.7 - 10.5 mg/dL 06/13 1:28 PM CDT [facility] Not Available Not Available 07/15/2024 03:37:46 06/14/1906/13/2024 Compr ehens timmy metab olic 1999 panel - Serum or Plasm a bilirubin.to porter [mass/volume ] in serum or plasma 0.2 mg/dL low: 0.2mg/ dLhigh : 1.2mg/ dL T BILI 0.2 0.2 - 1.2 mg/dL 06/13 1:28 PM CDT [facility] Not Available Not Available 07/15/2024 03:37:46 06/14/1906/13/2024 Compr ehens timmy metab olic 1999 panel - Serum or Plasm a aspartate aminotransfe rase [enzymatic activity/vol ume] in serum or plasma 30 U/L high: 43U/L SGOT (AST) 30 <43 U/L 06/13 1:28 PM CDT [facility] Not Available Not Available 07/15/2024 03:37:46 06/14/1906/13/2024 Compr ehens timmy metab olic 1999 panel - Serum or Plasm a alanine aminotransfe rase [enzymatic activity/vol ume] in serum or plasma 38 U/L high: 56U/L SGPT (ALT) 38 <56 U/L 06/13 1:28 PM CDT [facility] Not Available Not Available 07/15/2024 03:37:46 06/14/1906/13/2024 Compr ehens timmy metab olic 1999 panel - Serum or Plasm a alkaline phosphatase [enzymatic activity/vol ume] in serum or plasma 83 U/L low: 40U/Lh igh: 150U/L ALKAL INE PHOSP HATAS E 83 40 - 150 U/L 06/13 1:28 PM CDT [facility] Not Available Not Available 07/15/2024 03:37:46 06/14/19 25 06/13/2024 Compr ehens timmy metab olic 2000 panel - Serum or Plasm a IS the patient required to BE fasting? No IS THE PATIE NT REQUI RED TO BE FASTI NG? No 06/13 1:28 PM CDT [facility] [employer] Not Available Not Available 07/15/2024 03:37:46 06/14/19 25 06/13/2024 Compr ehens timmy metab olic 2000 panel - Serum or Plasm a glomerular filtration rate [volume rate/area] in serum, plasma or blood by creatinine-b ased formula (MDRD)/1.73 sq M among non black population low: 60 GFR, ESTIM ATED >60 >=60 06/13 1:28 PM CDT [facility] Not Available Not Available 07/15/2024 03:37:46 06/14/1906/13/2024 Compr ehens timmy metab olic 2000 panel - Serum or Plasm a glomerular filtration rate [volume rate/area] in serum, plasma or blood by creatinine-b ased formula (MDRD)/1.73 sq M among black population low: 60 GFR, EST. AFRIC AN >60 >=60 06/13 1:28 PM CDT [facility] [employer] Tro[facility] Not Available Not Available 07/15/2024 03:37:46 06/14/1906/13/2024 Compr ehens timmy metab olic 2000 panel - Serum or Plasm a glomerular filtration rate [volume rate/area] in serum, plasma or blood by creatinine-b ased formula (MDRD)/1.73 sq M among non black population low: 60 GFR, EST. NONAF RICAN >60 >=60 06/13 1:28 PM CDT [facility] [employer] Not Available Not Available 07/15/2024 03:37:46 06/14/19 25 06/13/2024 Compr ehens timmy metab olic 2000 panel - Serum or Plasm a interpretati on and review of laboratory results Abnorm al Not Available Not Available 03:37:46 06/17/19 23 06/01/2022 MRI, lumba r spine , w/o contr ast No observ ation record ed. [facility] [address] [facility] [place], [address], 02/27/2023 16:00:22 07/06/19 23 07/04/2022 US, gigi y No observ ation record ed. [facility] [address] [place], [address], 02/27/2023 16:00:15 11/06/19 23 08/11/2022 MRI, kidne y, w/wo contr ast No observ ation record ed. [email or web address] [facility] [address] [place], [address], 11/22/2022 23:29:23 06/23/19 24 06/23/2023 MAMMO , scree neena, digit al, bilat eral No observ ation record ed. [facility] [address] [place], [address], 06/24/2023 13:43:55 10/09/19 25 10/08/2024 MAMMO , scree neena, digit al, bilat eral No observ ation record ed. [facility] (Radiology[facility] [address] [place], [address], 10/11/2024 11:48:54 Result Notes None recorded. Problems Name Problem SNOMED Code Status Onset Date Resolution Date Notes Provider Name and Address Organization Details Recorded Time Vitamin D deficien cy 64705989 Active 2019 Vasu barrett, [place] - [facility] 0 11:18:20 Bilatera l pain in upper arms 33065791759 509049 Completed 201904/08/2022 Tres Granado MD Attn: Meagan sung,[address] [facility] [facility], [place], [address], [place] - [facility] 3 18:32:48 Hyperlip idemia 49531743 Active [place], [place] - [facility] 6 17:24:17 Chronic obstruct timmy pulmonar y disease 92082621 Active Sunshine [place] - [facility] 6 15:48:11 Gastroes ophageal reflux disease 720490473 Active [place] [facility] 6 15:48:11 Hyperten sive disorder 08341477 Completed 02/18/2016 Removal Reason: Isaac West PA-C Attn: Meagan sung,[address] [place], [address], [place] - [facility] 6 17:27:46 Essentia l hyperten stephanie 48108640 Active Vincent Ruiz [place], [place] - [facility] 6 17:24:17 Dizzines s and giddines s 286604824 Completed 202004/08/2022 Removal Reason: related to pregabal in Tres Granado MD Attn: Meagan sung,[address] [place], [address], [place] [facility] 3 18:33:10 Spinal stenosis of lumbar region 56942274 Active 2021 Jessie Cole MD Attn: Meagan sung,[address] [place], [address], [place] [facility] 2 17:25:54 Injury of hand 059662887 Active 2021 Jessie Cole MD Attn: Meagan sung,[address] [place], [address], [place] [facility] 2 17:26:01 Pain of left shoulder joint 63793814712 613308 Completed 202104/08/2022 Tres Granado MD Attn: Meagan sung,[address] [place], [address], [place] [facility] 3 18:33:32 Depressi ve disorder 50157014 Completed 202111/12/2021 Removal Reason: resolved Jessie Cole MD Attn: Meagan sung,[address] [facility], [place], [address], [place] [facility] 2 00:56:25 Overweig ht 787417825 Active 2021 Jessie Cole MD Attn: Meagan sung,[address] [facility], [place], [address], [place] [facility] 2 17:26:08 Temporal headache 01501082 Completed 202104/08/2022 Tres Granado MD Attn: Meagan sung,[address] [facility], [place], [address], [place] [facility] 3 18:33:42 Increase d frequenc y of urinatio n 123575352 Completed 202104/08/2022 Tres Granado MD Attn: Meagan sung,[address] [facility], [place], [address], [place] [facility] 3 18:33:22 Nicotine dependen ce 10865457 Active 2021 Tres Granado MD Attn: Meagan sung,[address] [facility] [address], [place], [address], [place] [facility] 2 17:45:56 Prediabe rylee 333430472 Active 2021 Tres Granado MD Attn: Meagan sung,[address] [facility] 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 will have avulsion of all toenails Tres Granado MD Attn: Meagan sung,[address] [facility] [address], [place], [address], [place] [facility] 3 16:21:49 Bilatera l tarsal tunnel syndrome 99122620535 729244 Active 2022 Tres Granado MD Attn: Meagan sung,[address] [place], [address], [place] [facility] 3 16:25:38 Tarsal tunnel syndrome 39544020 Active 2022 EMG pending Tres Granado MD Attn: Meagan sung,[address] [facility] [address], [place], [address], [place] [facility] 3 16:27:16 Polyp of colon 32561029 Active colonosc opy 08/21/19 23 - sigmoid colon polypect donnie x2 -tubular adenoma without high-gra de dysplasi a; hyperpla stic polyp - rectal polyp x12- 0.1 cm up to 0.4 cm polypect donnie; multiple hyperpla stic polyps * biopsies results pending- if there is an adenoma then repeat colonosc opy in 3 years with double prep. Otherwis e complete colonosc opy in 5 years Tres Granado MD Attn: Juan Luisbrayden sung,[address] [facility], [place], [address], [place] [facility] 3 15:09:58 Bacteria l vaginosi s 094401374 Completed 02/18/2016 Removal Reason: resolved Joceline West PA-C Attn: Meagan sung,[address] [place], [address], [place] [facility] 6 17:30:33 Acute low back pain 402886922 Active Sunshine barrett[place] - [facility] 6 15:48:11 Chest pain 74435769 Completed 02/18/2016 Removal Reason: resolved Joceline West PA-C Attn: Accountin g,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, [place], [address], [facility] - [facility] 6 17:30:01 Dysuria 40148117 Completed 02/18/2016 Removal Reason: resolved Joceline West PA-C Attn: Accountin g,[address] [facility], [place], [address], [facility] - [facility] 6 17:30:24 Candidal vulvovag initis 89140526 Completed 02/18/2016 Removal Reason: resolved Joceline West PA-C Attn: Accountbrayden g,[address], [place], [address], [facility] - [facility] 6 17:28:13 Intermit tent claudica tion [id number] Completed 02/18/2016 Removal Reason: duplicat e Joceline West PA-C Attn: Accountin g,[address] [facility], [place], [address], [place] - [facility] 6 17:30:44 Peripher al vascular disease 037456182 Active 07/2015 Right KELLY 0.75, mod arterial dz, left KELLY 0.99, referred to vascular surgeon Joceline West PA-C Attn: Accountin g,[address], [place], [address], [place] - [facility] 6 17:29:53 Problem Notes None recorded. Procedures Surgical History Date Name Laterality Status Provider Name and Address Organization Details Recorded Time 06/23/19 24 Date of Last Mammogram completed Kemi Mcgowanisidoro Mendieta [facility] 11/06/2023 14:39:10 06/23/19 24 Most Recent Mammogram completed Blanca Copeland [facility] 06/24/2023 13:43:05 12/06/19 22 biopsy of lung completed Evon Sanches MA [facility] 12/23/2021 10:18:41 09/28/19 21 Date of Last Pap Smear completed Johnna Biggs RN [facility] 10/02/2020 16:23:50 06/12/19 19 Nebulizer tx completed Joceline West PA-C Attn: Accounting,[address] [place], [address], [facility] 06/11/2018 11:33:52 11/19/19 18 Colonoscopy with biopsy completed Debbie Boateng [facility] 12/04/2017 08:26:07 07/09/19 17 Cerumen Removal completed Joceline West PA-C Attn: Accounting,[address] [place], [address], [facility] 07/08/2016 17:12:11 02/19/20 16 Cerumen Removal completed Joceline West PA-C Attn: Accounting,[address] [place], [address], [facility] 2016 12:17:50 10/02/19 16 Artery expos/graft artery completed Joceline West PA-C Attn: Accounting,[address] [place], [address], [facility] 2016 13:37:10 04/06/18 99 Other completed Sunshine Fields [facility] 04/20/2015 15:48:32 04/06/18 89 Total hysterectomy completed Jeannie Lovelace APN, HAND RIGGER-C Attn: Accounting,[address] [place], [address], [facility] 07/08/2023 13:49:23 Imaging Results None recorded. Procedure Notes None recorded. Medical Equipment None Reported. Allergies Allergen ID Allergen Name Allergen Category Reaction Reaction Severity Criticality Documentation Date Start Date Code Code System Note Provider Name and Address Organization Details Recorded Time 462722 Toradol medicatio n itching Not available Not available 02/01/2019 76653 RxNorm Latanya Cardoso MA null, [place] - [facility] 9 15:55:04 099148 ergocalci ferol medicatio n Not available Not available Not available 04/13/2019 4018 RxNorm Pt said Vit D made her const ipate d & cause d mood swing s Josefa Mann RN null, [place] - [facility] 0 08:58:46 447855 tramadol medicatio n itching Not available Not available 01/18/2020 19362 RxNorm Latanya Cardoso MA null, [place] - [facility] 0 10:10:19 Medications Name Sig Start Date Stop Date Status Note LastModified by Organization Details LastModified Time Miralax 17 gram oral powder packet Take 1 packet every day by oral route. 2021 active Not Available Not Available Not Avai lable cyclobenz aprine 10 mg tablet TAKE 1 TABLET TWICE A DAY BY ORAL ROUTE NEEDED. 07/17 completed baclofen ordered Not Available Not Available Not Available atorvasta tin 40 mg tablet TAKE 1 TABLET BY MOUTH EVERY DAY 09/10 completed Not Available Not Available Not Available terbinafi ne HCl 1 % topical cream APPLY TO THE AFFECTED AND SURROUND ING AREAS OF SKIN BY TOPICAL ROUTE ONCE DAILY 11/22 completed Not Available Not Available Not Available atorvasta tin 80 mg tablet TAKE 1 TABLET BY MOUTH EVERY MORNING active Not Available Not Available No t Available venlafaxi ne ER 37.5 mg capsule,e xtended release 24 hr Take 1 capsule every day by oral route. 06/18 completed Patient states that she is not depresse d. Not Available Not Available Not Available prednison e 10 mg tablet TAKE 1 TABLET BY MOUTH DAILY FOR 10 DAYS DIRECTED 07/21 completed Not Available Not Available Not Available doxycycli ne hyclate 100 mg capsule TAKE 1 CAPSULE BY MOUTH TWICE A DAY FOR 10 DAYS 09/10 completed Not Available Not Available Not Available Toprol XL 25 mg tablet,ex tended release Take 1 tablet every day by oral route in the morning. 05/07 completed Not Available Not Available Not Available atorvasta tin 20 mg tablet TAKE ONE TABLET BY MOUTH ONCE DAILY 08/28 completed Not Available Not Available Not Available nicotine 14 mg/24 hr daily transderm al patch APPLY 1 PATCH DAILY TO SKIN 04/08 completed made patient smoke more Not Available Not Available Not Available ipratropi um 0.5 mg-albute rol 3 mg (2.5 mg base)/3 mL nebulizat ion soln USE 3 ML VIA NEBULIZE R FOUR TIMES DAILY active Not Available Not Available No t Available albuterol sulfate 2.5 mg/3 mL (0.083 %) solution for nebulizat ion INHALE 3 ML BY NEBULIZA TION ROUTE EVERY 4 HOURS NEEDED FOR WHEEZING FOR UP TO 30 DAYS. active Not Available Not Available No t Available atorvasta tin 10 mg tablet active Not Available Not Available Not Available azithromy vance 250 mg tablet TAKE 2 TABLETS (500 MG) BY ORAL ROUTE ONCE DAILY FOR 1 DAY THEN 1 TABLET (250 MG) BY ORAL ROUTE ONCE DAILY FOR 4 DAYS 07/21 completed Not Available Not Available Not Available ibuprofen 800 mg tablet Take 1 tablet 3 times a day by oral route as needed. 04/08 completed Not Available Not Available Not Available cilostazo l 50 mg tablet Take 1 tablet twice a day by oral route. 10/12 completed Not Available Not Available Not Available nicotine (polacril ex) 2 mg gum CHEW 1 PIECE OF GUM EVERY 2 HOURS BY ORAL ROUTE FOR 42 DAYS active Not Available Not Available No t Available fluconazo le 150 mg tablet TAKE 1 TABLET BY MOUTH 07/21 completed Not Available Not Available Not Available hydrocodo ne 5 mg-acetam inophen 325 mg tablet TAKE 1 TABLET BY MOUTH EVERY 8 HOURS NEEDED FOR MODERATE TO SEVERE PAIN active Not Available Not Available No t Available metronida zole 0.75 % (37.5 mg/5 gram) vaginal gel INSERT 1 APPLICAT ORFUL VAGINALL Y EVERY DAY AT BEDTIME FOR 5 DAYS 07/21 completed Not Available Not Available Not Available prednison e 20 mg tablet TAKE 1 TABLET BY MOUTH TWICE DAILY FOR 5 DAYS 07/21 completed Not Available Not Available Not Available Zyrtec 10 mg tablet Take 1 tablet every day by oral route for 7 days. 05/07 completed Not Available Not Available Not Available metronida zole 500 mg tablet TAKE 1 TABLET BY MOUTH TWICE A DAY FOR 7 DAYS 07/21 completed Not Available Not Available Not Available acetamino phen 300 mg-codein e 30 mg tablet TAKE 1 TABLET BY MOUTH EVERY 6 HOURS NEEDED 06/28 completed Not Available Not Available Not Available clopidogr el 75 mg tablet Take 1 tablet every day by oral route. 07/24 completed Not Available Not Available Not Available ciproflox acin 250 mg tablet Take 1 tablet every 12 hours by oral route. 2014 active Not Available Not Available Not Avai lable amlodipin e 5 mg tablet TAKE 1 TABLET BY MOUTH EVERY DAY 09/10 completed Not Available Not Available Not Available ciproflox acin 500 mg tablet TAKE 1 TABLET BY MOUTH TWICE A DAY FOR 7 DAYS 04/08 completed Not Available Not Available Not Available sulfameth oxazole 800 mg-trimet hoprim 160 mg tablet TAKE 1 TABLET BY MOUTH 2 (TWO) TIMES A DAY FOR 10 DAYS 06/28 completed Not Available Not Available Not Available aspirin 81 mg tablet,de layed release Take 1 tablet every day by oral route. 05/31 completed Not Available Not Available Not Available ondansetr on 8 mg disintegr ating tablet active Not Available Not Available Not Available meloxicam 7.5 mg tablet TAKE 1 TABLET BY MOUTH EVERY DAY WITH FOOD 10/14 completed Not Available Not Available Not Available neomycin- bacitraci n-polymyx n 3.5 mg-400 unit-10,0 00 unit/gram eye oint APPLY A SMALL AMOUNT ON EYELID EVERY NIGHT 09/10 completed Not Available Not Available Not Available oxycodone -acetamin ophen 5 mg-325 mg tablet TAKE 1 TABLET BY MOUTH EVERY 4 HOURS NEEDED FOR PAIN 06/28 completed Not Available Not Available Not Available terbinafi ne HCl 250 mg tablet TAKE 1 TABLET BY MOUTH EVERY DAY active Not Available Not Available No t Available aspirin 325 mg tablet,de layed release TAKE 1/2 TABLET BY MOUTH ONCE DAILY 04/08 completed Not Available Not Available Not Available baclofen 10 mg tablet TAKE ONE TABLET BY MOUTH AT BEDTIME NEEDED 08/23 completed Not Available Not Available Not Available amlodipin e 10 mg tablet TAKE 1 TABLET BY MOUTH EVERY MORNING active Not Available Not Available No t Available benzonata te 100 mg capsule TAKE 1 CAPSULE BY MOUTH THREE TIMES A DAY NEEDED FOR COUGH 09/10 completed Not Available Not Available Not Available prednison e 2.5 mg tablet TAKE 1 TABLET BY MOUTH DAILY AFTER BREAKFAS T 07/21 completed Not Available Not Available Not Available pantopraz ole 40 mg tablet,de layed release Take 1 tablet every day by oral route. 11/23 completed Not Available Not Available Not Available erythromy vance 5 mg/gram (0.5 %) eye ointment APPLY SMALL AMOUNT TO RIGHT EYELID TWICE DAILY 07/21 completed Not Available Not Available Not Available nystatin 100,000 unit/gram topical cream APPLY TO THE AFFECTED AREA TWICE DAILY 07/21 completed Not Available Not Available Not Available nicotine 21 mg/24 hr daily transderm al patch APPLY 1 PATCH EVERY DAY BY TRANSDER MAL ROUTE FOR 30 DAYS. 04/08 completed per patient made her smoke more Not Available Not Available Not Available Ear Drops (carbamid e peroxide) 6.5 % INSTILL 5 DROPS INTO AFFECTED EAR(S) TWICE A DAY 04/08 completed Not Available Not Available Not Available diclofena c potassium 50 mg tablet Take 1 tablet twice a day by oral route. 09/26 completed Not Available Not Available Not Available nitroglyc bubba 0.4 mg sublingua l tablet PLACE 1 TABLET UNDER TONGUE EVERY 5 MINS, UP TO 3 DOSES NEEDED FOR CHEST PAIN active Not Available Not Available No t Available docusate sodium 100 mg capsule Take 1 capsule every day by oral route. 07/19 completed Not Available Not Available Not Available gabapenti n 300 mg capsule TAKE 1 CAPSULE BY MOUTH THREE TIMES DAILY active Not Available Not Available No t Available diclofena c sodium 75 mg tablet,de layed release TAKE 1 TABLET BY MOUTH TWICE A DAY 06/28 completed Not Available Not Available Not Available gabapenti n 100 mg capsule TAKE 2 CAPSULES BY MOUTH THREE TIMES DAILY active Not Available Not Available No t Available ibuprofen 600 mg tablet Take 1 tablet every 8 hours by oral route as needed. 06/11 completed Not Available Not Available Not Available polyethyl denisse glycol 3350 17 gram/dose oral powder DISSOLVE 1 SCOOP IN 4-8 OZ OF LIQUID AND DRINK ONCE DAILY 2021 active Not Available Not Available Not Avai lable Maxitrol 3.5 mg/mL-10, 000 unit/mL-0 .1% eye drops,jaxon pension INSTILL 1 DROP INTO AFFECTED EYE(S) BY OPHTHALM IC ROUTE EVERY 3-4 HOURS 05/07 completed Not Available Not Available Not Available levofloxa vance 750 mg tablet TAKE 1 TABLET BY MOUTH EVERY DAY FOR 10 DAYS 04/08 completed Not Available Not Available Not Available methylpre dnisolone 4 mg tablets in a dose pack FOLLOW PACKAGE DIRECTIO NS 07/21 completed Not Available Not Available Not Available albuterol sulfate HFA 90 mcg/actua tion aerosol inhaler INHALE 2 PUFFS BY MOUTH EVERY 4 HOURS NEEDED FOR WHEEZING active Not Available Not Available No t Available Vitamin D2 1,250 mcg (50,000 unit) capsule Take 1 capsule every week by oral route. 04/13 completed Pt reported Vit D made her constipa geovanna & caused mood swings Not Available Not Available Not Available fluticaso ne propionat e 50 mcg/actua tion nasal spray,jaxon pension SHAKE LIQUID AND USE 2 SPRAYS IN EACH NOSTRIL DAILY DIRECTED active Not Available Not Available No t Available metformin ER 500 mg tablet,ex tended release 24 hr TAKE 1 TABLET BY MOUTH DAILY 07/21 completed Not Available Not Available Not Available doxycycli ne hyclate 100 mg tablet TAKE 1 TABLET BY MOUTH TWICE A DAY FOR 14 DAYS 12/02 completed Not Available Not Available Not Available ipratropi um bromide 0.02 % solution for inhalatio n INHALE 2.5 ML BY NEBULIZA TION ROUTE EVERY 6 HOURS. active Not Available Not Available No t Available amoxicill in 875 mg-potass ium clavulana te 125 mg tablet Take 1 tablet every 12 hours by oral route for 7 days. 10/14 completed Not Available Not Available Not Available nicotine 7 mg/24 hr daily transderm al patch Apply 1 patch every day by transder mal route. 04/03 completed Not Available Not Available Not Available Laxative (bisacody l) 5 mg tablet,de layed release TAKE 2 TABLETS BY MOUTH EVERY DAY BEFORE MEALS active Not Available Not Available No t Available Fish Oil Concentra te 1,000 mg capsule Take 1 capsule by oral route. 12/20 completed Not Available Not Available Not Available ketorolac 30 mg/mL injection cartridge Inject 1 m by intramus cular route once. 2014 active Not Available Not Available Not Avai lable ciclopiro x 0.77 % topical cream APPLY THIN FILM TOPICALL Y TO AFFECTED AREAS DAILY. 07/21 completed Not Available Not Available Not Available Saline Nasal 0.65 % spray aerosol Take 1 spray twice a day by nasal route as needed for 10 days. 2022 active Not Available Not Available Not Avai lable ezetimibe 10 mg tablet TAKE 1 TABLET BY MOUTH EVERY DAY active Not Available Not Available No t Available Vitamin D3 25 mcg (1,000 unit) tablet Take 1 tablet every day by oral route. 04/13 completed Pt said Vit D made her constipa geovanna and caused mood swings. Not Available Not Available Not Available cyclobenz aprine 5 mg tablet TAKE 1 TABLET BY MOUTH THREE TIMES DAILY FOR UP TO 5 DAYS NEEDED FOR MUSCLE SPASMS active Not Available Not Available No t Available duloxetin e 30 mg capsule,d elayed release TAKE 1 CAPSULE BY MOUTH EVERY DAY active Not Available Not Available No t Available pregabali n 75 mg capsule Take 1 capsule twice a day by oral route for 30 days. 04/08 completed patient reported dizzynes s Not Available Not Available Not Available chlorhexi dine gluconate 0.12 % mouthwash 10/14 completed Not Available Not Available Not Available Metamucil 06/11 completed Not Available Not Available Not Available Chantix 0.5 mg tablet Take 1 tablet twice a day by oral route for 3 days. 12/20 completed Not Available Not Available Not Available Symbicort 80 mcg-4.5 mcg/actua tion HFA aerosol inhaler Inhale 2 puffs twice a day by inhalati on route. 2018 active Not Available Not Available Not Avai lable fenofibra te 40 mg tablet Take 2 tablets every day by oral route in the evening. 12/20 completed Not Available Not Available Not Available niacin (inositol niacinate ) 500 mg capsule Take 1 capsule every day by oral route at bedtime. 12/20 completed Not Available Not Available Not Available OneTouch Verio test strips USE TO TEST BLOOD SUGAR THREE TIMES DAILY active Not Available Not Available No t Available Chantix Starting Month Box 0.5 mg (11)-1 mg (42) tablets in dose pack Take 1 startr pk by oral route. 12/20 completed Not Available Not Available Not Available Combivent Respimat 20 mcg-100 mcg/actua tion solution for inhalatio n Inhale 1 puff 4 times a day by inhalati on route. 06/11 completed Not Available Not Available Not Available Incruse Ellipta 62.5 mcg/actua tion powder for inhalatio n INHALE 1 PUFF EVERY DAY BY INHALATI ON ROUTE PATIENT NEEDS APPOINTM ENT FOR FURTHER REFILLS* 2022 active Not Available Not Available Not Avai lable naloxone 4 mg/actuat ion nasal spray active Not Available Not Available Not Available OneTouch Delica Plus Lancet 33 gauge USE 1 LANCET THREE TIMES DAILY WITH MEALS active Not Available Not Available No t Available OneTouch Verio Reflect Meter USE DIRECTED active Not Available Not Available No t Available Breyna 160 mcg-4.5 mcg/actua tion HFA aerosol inhaler INHALE 2 PUFFS BY MOUTH TWICE DAILY active Not Available Not Available No t Available Vitals Date Recorded Body height Body mass index (BMI) Body weight Body temperature Respiratory rate Heart rate Oxygen saturation Oxygen saturation in Arterial blood by Pulse oximetry Systolic And Diastolic Provider Name and Address Organization Details Last Updated DateTime 3 165.1 cm 27.5 kg/m2 78482.1 9 g 98.3 [degF] 16 /min 85 /min 97 % 97 % 124/80 mm[Hg] Evon Sanches MA [facility] 3 15:26:51 Date Recorded Body height Body mass index (BMI) Body weight Heart rate Respiratory rate Body temperature Systolic And Diastolic Provider Name and Address Organization Details Last Updated DateTime 3 165.1 cm 27.5 kg/m2 17513.7 4 g 80 /min 20 /min 98.3 [degF] 130/80 mm[Hg] Nicole Quan MA [facility] 3 15:18:28 Date Recorded Body height Body mass index (BMI) Body weight Respiratory rate Body temperature Heart rate Systolic And Diastolic Provider Name and Address Organization Details Last Updated DateTime 3 165.1 cm 26.9 kg/m2 59855.5 2 g 20 /min 97.6 [degF] 90 /min 128/79 mm[Hg] Kemi Mendieta [facility] 3 16:19:08 Date Recorded Body height Body mass index (BMI) Body weight Heart rate Systolic And Diastolic Provider Name and Address Organization Details Last Updated DateTime 07/21/2024 165.1 cm 22.6 kg/m2 20030.56 g 80 /min 115/73 mm[Hg] Shama Park MA [facility] 07/21/2024 17:16:13 Date Recorded Body height Body mass index (BMI) Body weight Systolic And Diastolic Provider Name and Address Organization Details Last Updated DateTime 10/14/2022 165.1 cm 26.4 kg/m2 26906.03 g 123/75 mm[Hg] Jessie Aggarwal MA [facility] 10/14/2022 09:38:52 Social History Question Answer Notes LastModified by Organizat ion Details LastModified Time Tobacco Smoking Status Current Every Day Smoker Jennifer barrett [facility] 05/24/2014 11:52:04 Do You Have An Advance Directive? No [email or web address] Information not available 10/14/2022 Is Blood Transfusion Acceptable In An Emergency? Yes Information not available 08/15/2014 What Is Your Level Of Caffeine Consumption? Moderate Information not available 04/20/2015 How Much Tobacco Do You Chew? None Information not available 05/24/2014 In The 14 Days Before Symptom Onset, Have You Had Close Contact With A Laboratory-confir med COVID-19 While That Case Was Ill? No [email or web address] Information not available 12/02/2021 In The 14 Days Before Symptom Onset, Have You Had Close Contact With A Person Who Is Under Investigation For COVID-19 While That Person Was Ill? No [email or web address] Information not available 12/02/2021 Have You Been To An Area Known To Be High Risk For COVID-19? No [email or web address] Information not available 12/02/2021 What Type Of Diet Are You Following? REGULAR Information not available 08/15/2014 Which Illicit Or Recreational Drugs Have You Used? No Information not available 08/15/2014 Education 2 Year College Information not available 08/15/2014 Are There Any Guns Present In Your Home? Yes Information not available 05/24/2014 Hard Of Hearing Or Deaf In One Or Both Ears? 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 With Others Information not available 08/15/2014 Marital Status Single Informatio n not available 05/24/2014 What Was The Date Of Your Most Recent Tobacco Screening? 07/21/2024 Information not available 07/21/2024 How Many Children Do You Have? 1 Information not available 08/15/2014 Performs Monthly Self-breast Exam? Yes Information no t available 05/24/2014 Do You Use Protection During Sex? Usually Information not available 04/20/2015 What Is Your Relationship Status? Single Information not available 08/15/2014 Seat Belts Used Routinely Yes Information not available 05/24/2014 Are You Sexually Active? Yes Information not available 08/15/2014 Smoke Alarm In Home Yes Information not available 05/24/2014 Do You Have Smoke And Carbon Monoxide Detectors In Your Home? Yes [email or web address] Information not available 06/28/2020 At What Age Did You Start Smoking Tobacco? 14 Information not available 04/20/2015 Are You Passively Exposed To Smoke? Yes [email or web address] Information no t available 12/02/2021 How Much Tobacco Do You Smoke? 0.5 PPD Information not available 05/24/2014 General Stress Level High [email or web address] Information not available 03/17/2019 Do You Use Sunscreen Routinely? No Information not available 08/15/2014 Has Tobacco Cessation Counseling Been Provided? Yes [email or web address] Information not available 12/02/2021 On What Date Was Tobacco Cessation Counseling Provided? 07/21/2024 Information not available 07/21/2024 How Many Years Have You Smoked Tobacco? 43 [email or web address] Information not available 08/03/2017 Sex: Female Functional Status Question Answer Note LastModified by Organizat ion Details LastModified Time Do you use any illicit or recreational drugs? No [email or web address] Information not available 12/02/2021 Do you or have you ever used any other forms of tobacco or nicotine? No [email or web address] Information not available 12/02/2021 What is your level of alcohol consumption? Moderate Information not available 05/24/2014 Do you or have you ever used smokeless tobacco? Never used smokeless tobacco [email or web address] Information not available 03/17/2019 Are you currently employed? Yes Information not available 08/15/2014 What is your occupation? [employer], working at a [employer] 2 days a week [email or web address] Information not available 01/28/2018 Do you or have you ever used e-cigarettes or vape? Never used electronic cigarettes [email or web address] Information not available 03/17/2019 What is your exercise level? Moderate [email or web address] Information not available 03/17/2019 Mental Status None recorded. Family History Relationship Description Onset Age of this Age Resolved Age Notes LastModified by Organization Details LastModified Time Mother Asthma Not available 15:50:18 Mother Hypertensive disorder Not available 2015 15:50:18 Mother Lupus [email or web address] Not available 2015 15:50:18 Mother Chronic obstructive pulmonary disease Not available 2021 11:40:47 Mother Pulmonary emphysema [email or web address] Not available 2022 16:19:18 Father Malignant neoplasm of prostate Not available 2015 15:50:18 Father Dementia [email or web address] Not available 10/12/2017 11:25:20 Maternal Grandmother Hypertensive disorder Not available 2015 15:50:18 Paternal Grandfather Malignant neoplasm of prostate Not available 2015 15:50:18 Medical History Condition Response Heart Problems Y Other N High Blood Pressure Y Breast Cancer N Thyroid Problems N Kidney or Bladder Problems Y GI Problems N Lung Disease Y Depression N COPD Y Acne N Breast Problem N Eating Disorder N Anemia N Anesthesia Complications N Headaches/Migraines N Anxiety Disorder N Diabetes N Ovarian Cancer N Blood Transfusions N Arthritis N Polyps N Infertility N Acid Reflux (GERD) Y Cancer N Stroke N Abuse/Domestic Violence N Asthma N Endometriosis N High Cholesterol Y Hepatitis N Heart Disease N Fibromyalgia N Pre-Eclampsia N Hypertension Y Osteoporosis N Kidney Disease N Gynecological History Statement/Question Response Date of Last Mammogram 06/23/2023 On BCP's at Conception? Y STIs/STDs N HPV Vaccine N Most Recent Mammogram 06/23/2023 Age at Menarche 13 Current Control Method Hysterectom y Age at First Child 23 Sexually Active? N Menses Monthly N Date of Last Pap Smear 09/27/2020 Sexual Problems? N LMP Approximate Desired Control Method Hysterectom y Obstetrics History GPAL:G 1 P 1 0 0 1 Type Value Multiple Births 0 Full Term 1 Induced 0 Spontaneous 0 Premature 0 Living 1 Ectopics 0 Total 1 Immunizations Vaccine Type Date Status Note Provider Nam e and Address Organization Details Recorded Time COVID-19, mRNA, LNP-S, PF, 100 mcg/0.5mL dose or 50 mcg/0.25mL dose 1 completed CINDY Kelley null, [place] - [facility] 12/20/2021 09:38:21 Influenza, split virus, trivalent, preservative 4 completed CINDY [place] [facility] 12/20/2021 09:38:21 pneumococcal polysaccharide PPV23 4 completed CINDY Kelley [place], [place] [facility] 12/20/2021 09:38:21 Influenza, split virus, quadrivalent, preservative 6 completed Not Available [facility] 04/23/2019 02:42:30 Influenza, split virus, quadrivalent, preservative 7 completed Not Available [facility] 04/23/2019 02:42:01 Influenza, split virus, quadrivalent, preservative 8 completed Not Available [facility] 04/23/2019 02:36:30 Influenza, split virus, quadrivalent, preservative 9 completed Not Available [facility] 04/23/2019 02:38:42 COVID-19, mRNA, LNP-S, PF, 100 mcg/0.5mL dose or 50 mcg/0.25mL dose 1 completed Kelly Shah MA null, [place] - [facility] 07/12/2020 16:17:36 COVID-19, mRNA, LNP-S, PF, 100 mcg/0.5mL dose or 50 mcg/0.25mL dose 1 completed Marta Siddiqi [place], [place] [facility] 08/09/2020 16:43:26 Tdap 5 completed Not Available [facility] 04/23/2019 02:29:59 Influenza, split virus, trivalent, preservative 4 completed Not Available [facility] 07/18/2022 16:10:21 pneumococcal polysaccharide PPV23 4 completed Not Available [facility] 07/18/2022 16:10:21 Influenza, split virus, quadrivalent, preservative 5 completed Not Available [facility] 04/23/2019 02:44:47 Past Encounters Encounter ID Performer Location Encounter Start Date Encounter Closed Date Diagnosis/Indication Diagnosis SNOMED-CT Code Diagnosis ICD10 Code Diagnosis Note [id number] MD Jensen Stephens (Adult Med) [address] [place] [address] 05/24/2014 11:02:20 05/24/2014 12:53:46 Essential hypertension [id number] Blood pressure controlled . Contiue Amlodipine . Patient has cough with Lisinopril and it was to Amlodipine by the ER physician. Hyperlipidemia 44798019 Patient said she has high cholestero l. Currently not on medication s. Gastroesop hageal reflux disease [id number] Life style modificati ons explained. Advised patient to stop drinking the soda. Screening for malignant neoplasm of breast [id number] Screening for malignant neoplasm of colon 611747005 Chronic ob structive pulmonary disease 71703862 Patient was diagnosed with COPD by the previous physician. No active symptoms now Takes Combivent. [id number] MD Ariella Stephenshalto (Adult Med) [address] [place] [address] 08/01/2014 16:07:34 08/02/2014 08:59:09 Essential hypertension 24981459 Blood pressure controlled . Contiue Amlodipine . Adviswed low salt diet and regular exercise. Hyperlipidemia 38254741 LDL well controlled . Continue Atorvastat in 20 mg po daiy. Chronic ob structive pulmonary disease 71745475 No active symptoms now Takes Combivent. Tobacco user [id number] A dvised patient to quit smoking. [id number] [facility] [address] [place] [address] 08/15/2014 09:47:21 08/15/2014 11:43:28 Gynecologic examination [id number] Normal female exam x foul-smell ing vaginal d/c. See below. Pt. had fasting blood work done with her PCP. Pt. is s/p hysterecto my. However, she was told she had cervical cancer prior to the hysterecto my. No records available. Pap done. Venereal d isease screening [id number] RTO one week for results. Screening for malignant neoplasm of breast 608235752 Bacterial vaginosis [id number] Screening for malignant neoplasm of colon 706894085 Pt. had colonoscop y 08/01/14. Six polyps found. All benign. Repeat colonoscop y in 2 years. [id number] [facility] [address] [place] [address] 09/05/2014 09:20:38 09/05/2014 11:10:42 Acute low back pain 542406624 Patient received the Ketorolac 30 mg IM injection in the office. Will give her Ibuprofen 600 mg po q 6h prn and Cyclobenza ev 10 mg po tid prn. Will do x ray Lumbar spine and Right hip. Urine dipstick is negative. Advise patient to follow up in 1 week. Return to work slip given. [id number] MD Jensen Stephens (Adult Med) [address] [place] [address] 09/12/2014 09:28:33 09/12/2014 11:50:59 Acute low back pain 693355144 Patient came for follow up on back pain. X ray Lumbar spine and Right hip showed degenerati ve changes. Continue Ibuprofen as needed. Hydrocodon e 5/325 mg q 6h as needed with severe pain. Side effects explained. Refer to Physical therapy. Follow up as needed. [id number] MD Jensen Magana ([employer]) [address] [place] [address] 09/27/2014 13:59:51 10/11/2014 09:36:55 Gynecologic examination [id number] Pap was normal with negative hr-HPV, dwp. Venereal d isease screening [id number] Vaginal culture was negative for GC, chlam, and TV, dwp. STD panel was negative. Individual tests d/w pt. Screening for malignant neoplasm of breast [id number] Mammogram was normal. Repeat one year, dwp. [id number] MD Jensen Stephens (Adult Med) [address] [place] [address] 10/02/2014 11:47:29 10/02/2014 13:54:45 Acute low back pain [id number] Patient came for follow up on back pain.c/o pain right lower back and pain in the right groin. X ray Lumbar spine and Right hip showed degenerati ve changes. Continue Ibuprofen and Hydrocodon e 5/325 mg q 6h as needed with pain. Pain is not improving with Physical therapy. Refer to Orthopaedi cs. Follow up as needed. [id number] MD Ariella Stephenshalto (Adult Med) [address] [place] [address] 11/30/2014 16:07:25 12/01/2014 08:28:46 Essential hypertension 24714277 Blood pressure controlled . Contiue Amlodipine . Adviswed low salt diet and regular exercise. Hyperlipidemia 30650229 LDL well controlled . Continue Atorvastat in 20 mg po daiy. Chronic ob structive pulmonary disease 59685807 No active symptoms now Takes Combivent. Tobacco user 782626608 A dvised patient to quit smoking. Chest pain 87615976 c/o left chest pain 1 week ago, 2 episodes.R adiating to left arm and neck.no active pain today. Chronic smoker,hyp ertension. will do exercise stress test. [id number] [facility] [address] [place] [address] 12/07/2014 14:44:51 12/07/2014 16:07:35 Cyst of ovary 46794445 MRI Lumbar spine which showed 2.7 cm incomplete ly visualized cystic mass in the left pelvis which may be an ovarian cyst. Will do Pelvic ultrasound . Acquired r enal cystic disease 657370736 MRI Lumbar spine which showed 3.8 cm upper pole left renal cyst . Will do U/S of kidneys. Acute urin jazlyn tract infection 642462081 Administra tion of tetanus vaccine 465330750 [id number] [facility] ([facility] [address] [place] [address] 03/28/2015 15:54:40 03/29/2015 15:34:34 Essential hypertension 67761862 I10 Blood pressure controlled . Contiue Amlodipine . Adviswed low salt diet and regular exercise. Hyperlipidemia 05513733 E78.2 LDL well controlled . Continue Atorvastat in 20 mg po daiy. Tobacco user 947943083 Z 72.0 Advised patient to quit smoking. Dysuria 85272344 R30.0 Urine dipstick is negative. Will send the urine for UA and Urine cultures. Follow up as needed. Influenza vaccine needed 4692800553 106 Z23 [id number] [facility] ([employer]) [address] [place] [address] 04/20/2015 15:02:24 04/20/2015 16:47:46 Bacterial vaginosis 128138500 N76.0 Diagnosis d/w pt. Rx sent to pharmacy. Hemanth shetty discussed. Candidal vulvovaginitis 26913561 B37.3 Diagnosis d/w pt. Rx sent to pharmacy. Hemanth shetty discussed. [id number] MD Jensen Stephens (Adult Med) [address] [place] [address] 07/26/2015 16:15:43 07/27/2015 11:38:07 Essential hypertension 33225825 I10 Blood pressure controlled . Contiue Amlodipine . Adviswed low salt diet and regular exercise. Hyperlipidemia 62724024 E78.2 LDL well controlled . Continue Atorvastat in 20 mg po daiy. Intermitte nt claudication 86113298 I73.9 Tobacco user 622819644 Z 72.0 Advised patient to quit smoking. [id number] MARY Villasenor (Adult Med) [address] [place] [address] 2016 11:46:18 2016 14:16:12 Peripheral vascular disease 453295148 I73.9 s/p stent placement. keep f/u with Dr. Thomas, pain likely muscoloske letal rather than stent related. given AAOS hip conditioni ng exercises; start with stretches and move up to conditioni ng/strengt hening once pain is improved Essential hypertension 28066353 I10 did not get to do orthostati c BP check during this visit, will restart amlodipine and have pt come in for nurse visit to check and see if dizziness related to orthostati c hypotensio n once she is on med. Chronic ob structive pulmonary disease 64806315 J44.9 cont inhalers, encouraged to continue w/ smoking cessation goals Tobacco user 689207293 Z 72.0 has decreased amount, but wants to stop completety . If insurance does not pay for patch, will consider oral medication Dizzy spells 565211993 R 42 BPV vs. orthostati c hypotensio n, but in patient w/ known PAD, will get CT head to r/o acute CVA Impacted cerumen 7781613 6 H61.23 with hearing loss especially in right ear. improved after cindy ear lavage, cont debrox for another week Hyperlipidemia 18608422 E78.5 reviewed prior labs, discussed diet & exercise as well as continued medication tx. Influenza vaccine needed 8589894969 106 Z23 Cardiomegaly 7963205 I51 .7 noted on prior studies, has not had ECHO in over 5yrs per patient. c/o dizziness, shortness of breath and LE edema [id number] MD Ariella Maganahalto ([employer]) [address] [place] [address] 04/03/2016 09:53:32 04/14/2016 16:08:09 Candidal vulvovaginitis 29899868 B37.3 Diagnosis d/w pt. Rx sent to pharmacy. Instructio ns discussed. Vaginal discharge 010716 006 N89.8 Will check culture. [id number] MARY Villasenor (Adult Med) [address] [facility] [place] [address] 07/08/2016 16:39:51 07/09/2016 08:59:00 Essential hypertension 71822733 I10 not orthostati c today, mild sxs only with going for laying to sitting. Fair control of BP 140/80 avg, cont atorvastat in. Peripheral vascular disease 573569998 I73.9 Recommend pt f/u with Dr. Thomas if still having groin pain at site of her stent placement. Hyperlipidemia 92061426 E78.5 Refilled statin, cont taking nightly, follow low fat diet. Chest pain 19314843 R07. 9 Patient instructed to go to ER next time she has chest pain sxs. Tobacco user 519091721 Z 72.0 has decreased amount to 8/day. vascular surgeon does not want her using patches. She will continue to decrease on her own. Impacted cerumen 4434377 6 H61.22 with hearing loss. cleared after lavage & improved hearing Dizziness 258205414 R42 given handout & instructed on how to perform Deysi maneuver at home. Constipation 82426687 K5 9.00 instructed to follow high fiber diet. Avoid chronic use of laxatives & use stool softeners, miralax or fiber supplement s like metamucil instead. [id number] MD Ariella Maganahalto ([employer]) [address] [place] [address] 10/29/2016 16:38:43 10/30/2016 14:47:35 Bacterial vaginosis 420276292 N76.0 Diagnosis d/w pt. Rx sent to pharmacy. Instructio ns discussed. Candidal vulvovaginitis 37202176 B37.3 Diagnosis d/w pt. Rx sent to pharmacy. Hemanth shetty discussed. [id number] Damon Rehman MD [facility] (Adult Med) [address] [place] [address] 01/13/2017 08:25:08 01/13/2017 16:34:11 Essential hypertension 32764914 I10 controlled on amlodipine , dwp pletal can bring BP down. Hyperlipidemia 90144533 E78.5 last LDL was 96, goal should be less than 75 w/ known PAD. continue atorvastat in 20mg, repeat labs, may need to increase. cont to follow low fat diet and stay active w/ walking as leg pain tolerates. Chest pain 21904506 R07. 9 Patient instructed to go to ER next time she has chest pain sxs. She could not afford to get stress test ordered at last visit. dwp high risk for CAD since she already had blockage in right common iliac. Encouraged smoking cessation, cont aspirin and statin. Will see if she can get stress test done at [facility] under self pay plan. Tobacco user 265865824 Z 72.0 has decreased amount to 8/day but can't go below that. vascular surgeon does not want her using patches, but if she feels that will help her quit then she can start with 14mg patch for 2 weeks then reduce to 7mg x 2 weeks then stop. Chronic ob structive pulmonary disease 36601521 J44.9 controlled , encouraged smoking cessation. Will refill ventolin, she needs to have this with her at all times. Given sample of symbicort to replace her old Combivent. instructed to use symbicort if she is using ventolin on weekly basis. Screening mammography 24 604818 Z12.31 Given [facility] dept contact info for possible free screening mammogram Peripheral arterial occlusive disease 102225213 I73.9 s/p right common iliac stent placement & cindy common iliac angioplast y. She completed 6 weeks of plavix, is on daily aspirin. Pain returned, similar type of pain to right groin and hip area. She has not followed up with Dr. Thomas since last visit, still trying to pay bill fro 2016 procedure. continue daily aspirin and statin, repeat imaging studies to evaluate the stent in right iliac, will try [facility] since she is not able to afford marketplac e insurance. Administra tion of influenza vaccine 05986946 Z23 [id number] MD Jensen Chambers (Adult Med) [address] [place] [address] 06/24/2017 16:21:58 06/26/2017 08:07:36 Dysuria-frequency syndrome 2330442 R30.0 UA neg for infection Left lower quadrant pain 272849960 R10.32 worrisome for diverticul itis. Pt instructed to start low residue diet, start flagyl and get Ct abd/pelvis . History of polyp of colon 374203059 Z86.010 last colonoscop y 2014, 6 polyps removed and recommende d to repeat in 2-3yrs Tinea pedis 3045995 B35. 3 mild lesions to bottom of feet, recommend applying cream to bottom of feet and around nails. keep feet dry Bacterial vaginosis 4197 02571 N76.[address] out of town, gets recurrent B. Vag and starting to notice odor w/ mild irritation . start treatment Onychomyco sis of toenails 969286807 B35.1 hold off on any antifungal oral meds pending labs & abdominal w/u Constipation 97698720 K5 9.00 instructed to follow high fiber diet. Avoid chronic use of laxatives & use stool softeners, miralax. Hold off on fiber supplement s until Ct abd/pelvis done, if infection will need to follow low residue diet. Body mass index 25-29 - overweight 123071633 Z68.25 reviewed diet & exercise. also reviewed stress test from last fall. Cont low fat/low cholestero l diet. Tobacco user 120914516 Z 72.0 has decreased to 7-8 cigarettes /day, cont to decrease until full cessation [id number] MD Jensen Magana ([employer]) [address] [place] [address] 08/03/2017 15:33:57 08/04/2017 13:44:02 Pruritus of vulva 85653504 L29.2 Normal exam dwp. Culture sent. [id number] MD Jensen Magana ([employer]) [address] [place] [address] 09/10/2017 08:57:29 09/10/2017 13:55:22 Bacterial vaginosis 035991385 N76.0 Diagnosis d/w pt. Rx sent to pharmacy. Hemanth shetty discussed. [id number] [facility] ([facility] [address] [place] [address] 10/12/2017 11:16:43 10/14/2017 14:15:56 Abdominal pain 27336562 R10.9 h/o pancreatit is, check labs. start PPI, stop alcohol, high acid foods, NSAIDs.she didn't schedule colonoscop y at [facility] due to lack of insurance, will try [facility]. Acute low back pain 2788 33897 M54.5 given AAOS spine conditioni ng exercises, start cyclobenza ev. Gastroesop hageal reflux disease without esophagitis 282740407 K21.9 not responding to tums, recommend starting PPI, check labs for possible pancreatit is. refer to GI due to sensation of food getting stuck. cont metamucil for constipati on. Will avoid NSAIDs. Pain of to e of left foot 2072594495 93607 M79.675 s/p fall almost 2 weeks ago onto concrete. still very tender. she will check on cost at [facility] and see if they do a payment plan. Avoid NSAIDs due to mod-severe GERD sxs. [id number] MD Jensen Magana ([employer]) [address] [place] [address] 11/23/2017 15:30:18 11/26/2017 15:44:14 Screening for malignant neoplasm of cervix 473546910 Z12.4 Last pap done 08/15/14 was negative with negative hr-HPV. Therefore, no pap needed. Pt. is s/p removal of the cervix in 1988 for cervical CA and hysterecto my in 1998 for fibroids. Records requested. Screening for malignant neoplasm of breast 704589504 Z12.31 Last mammogram was 2014. mammogram ordered. [id number] MD Ariella Chambershalto (Adult Med) [address] [place] [address] 01/28/2018 15:55:34 02/01/2018 17:59:28 Influenza vaccine needed 9430120009 106 Z23 Congestion of nasal sinus 63025371 R09.81 Lateral epicondylitis 20 0355434 M77.11 increase ibuprofen from 600mg to 800mg, take w/ food, drink plenty of water. Discussed exercises, wearing elbow brace, rest as much as possible [id number] [facility] ([facility] [address] [place] [address] 06/11/2018 10:59:09 06/14/2018 09:01:07 Chronic obstructive pulmonary disease 16100179 J44.1 midly exacerbate w/ recent URI sxs, cleared w/ neb tx. she did not get long acting inhaler, couldn't afford it. Recommend she try [facility] if cost prohibitiv e as it can help reduce flare ups. Also advised she take allergy medication for rhinorrhea . Rib pain 690434273 R07.8 1 started after a slip and fall down her back steps this winter, present for 6mo, still giving her pain. r/o rib fx that is slow to heal. Pain of breast 54494449 N64.4 normal mammogram 12/2017. assoc itching, no palpable mass per pt exam. check CXR, f/u with product evangelist if not improving. Tobacco user 893941663 Z 72.0 she has decreased since she got sick, strongly advised her to stop smoking to prevent future exacerbati ons. [id number] MD [facility] ([employer]) [address] [place] [address] 07/19/2018 10:42:23 07/20/2018 11:56:46 Bacterial vaginosis 553662025 N76.0 Diagnosis d/w pt. Rx sent to pharmacy. Hemanth shetty discussed. [id number] MD Jensen Magana ([employer]) [address] [place] [address] 11/22/2018 10:54:28 11/23/2018 09:40:49 Pain in pelvis 35028400 R10.2 Normal exam. Culture sent. CT scan 07/2017 showed no ovaries but did show diverticul osis. P.t. not on a special diet. Diverticul osis diet from [facility] handout given. Pt. encouraged to keep appt. with PCP. [id number] MD Jet Peter [address] IM [address] [facility] [address] [place] [address] 02/01/2019 15:31:43 02/02/2019 12:20:26 Tobacco user 492923884 Z72.0 Chronic ob structive pulmonary disease 18747467 J44.9 Gastroesop hageal reflux disease 151725069 K21.9 Peripheral vascular disease 784401285 I73.9 Hyperlipidemia 65572399 E78.5 Essential hypertension 67493264 I10 Melanocyti c nevus of skin 429754688 D22.9 Upper resp iratory infection 22594356 J06.9 Adult heal th examination 253184238 Z00.00 Screening for malignant neoplasm of breast 673405748 Z12.39 Administra tion of influenza vaccine 90968570 Z23 [id number] MD [facility] ([employer]) [address] [place] [address] 03/17/2019 09:27:03 03/18/2019 10:46:48 Screening for malignant neoplasm of breast 406809088 Z12.31 Normal clinical breast exam. UTD. Last mammogram 02/2019, wnl. Bacterial vaginosis 4197 43515 N76.0 [id number] Di Enriquez [facility] Jet 14 OB [address] [facility] [address] [facility] [place] [address] 05/06/2019 08:59:02 05/06/2019 12:45:14 History of recurrent vaginal discharge 533786421 Z87.42 Pt states recurrent BV, would like refill. Counseled on STD prevention and condom use. Counseled on yeast and BV prevention . Will follow up pending lab results. [id number] MD Jet Peter 14 IM [address] [facility] [address] [place] [address] [address] 05/31/2019 14:18:53 06/01/2019 10:41:08 Tobacco user 364441136 Z72.0 Chronic ob structive pulmonary disease 85210052 J44.9 Gastroesop hageal reflux disease 035375225 K21.9 Hyperlipidemia 85824277 E78.5 Essential hypertension 52335620 I10 Peripheral vascular disease 200035276 I73.9 [id number] Vasu Crook [facility] Jet 14 IM [address] [facility] [place] [address] 08/25/2019 09:16:19 08/26/2019 07:07:03 Chronic obstructive pulmonary disease 38863979 J44.9 Bilateral pain in upper arms 8795027761 6959194 M79.621 M79.822 [id number] NikaAdeline Crook, [facility] Jet 14 IM [address] [facility] [place] [address] 09/27/2019 08:43:56 09/29/2019 10:43:32 Bilateral pain in upper arms 6332865307 7850924 M79.621 M79.525 [id number] Ivone Naidu, [facility] [place] [facility] [address] [place] [address] 03/12/2020 10:09:56 03/13/2020 11:17:26 Viral screening 824318486 Z11.59 Viral syndrome 471580511 B34.9 Coronavirus infection 18 3506225 B34.2 [id number] MD Jet Peter [address] IM [address] [facility] [place] [address] 03/27/2020 08:29:28 03/28/2020 23:48:09 Chronic obstructive pulmonary disease 67604974 J44.9 Tobacco user 659466262 Z 72.0 Gastroesop hageal reflux disease 527438248 K21.9 Vitamin D deficiency 347 02982 E55.9 Hyperlipidemia 59409161 E78.5 Essential hypertension 18080346 I10 [id number] Antony Collado MD [facility] [address] [address] 04/19/2020 11:47:39 04/24/2020 08:09:09 Pain of right elbow joint 9618126151 3713145 M25.521 Pain of le ft elbow joint 3404924702 2718680 M25.522 Lateral ep icondylitis of right humerus 8956345190 24045 M77.11 Lateral ep icondylitis of left humerus 2509631773 11954 M77.12 Triceps tendinitis 36189 7003 M67.88 [id number] MD Jet Marlow [address] IM [address] [facility] [place] [address] 06/28/2020 10:32:02 06/29/2020 09:47:34 Acute back pain with sciatica 901880179 M54.40 will start PT now, pain control, resume NSAID with food, cont hydrocodon e PRN, and flexeril. Start regular stool softened due to narcotic use. Discussed side effects. I have a very low threshold for MRI for her, as she has significan t foraminal stenosis and is amenable to interventi on if will help. Advised to call if new symptoms. Spinal lonnie nosis of lumbar region 88512790 M48.061 no warning signs, however, if no help with PT, MRI/referr al Stenosis o f lumbar vertebral foramen 825325967 M48.061 mild to moderate s/p injury. No distal alarm signs. Will proceed with PT at this time, low threshold for MRI and referral if any new symptoms. [id number] MD Jet Chambers 14 IM [address] [facility] [address] [place] [address] 07/12/2020 10:00:08 07/14/2020 09:49:20 Administration of SARS-CoV-2 antigen vaccine 316828575 Z23 [id number] MD Jet Marlow 14 IM [address] [facility] [address] [place] [address] 07/26/2020 10:30:51 07/27/2020 11:57:09 Spinal stenosis of lumbar region 43035032 M48.061 symptoms worsening, now developing intermitte nt numbness in saddle area as well as worsening . Needs MRI and referral to spine surgeon. Pain control at this point-- continue baclofen PRN, will increase her hydrocodon e to Q6h prn. Prescripti on drug monitoring performed and detailed discussion about side effects and tolerance and dependence for pain medication s. If she requires refill next month, will enter controlled medication contract including routine urine testing. patient agrees to follow up in 4 weeks. Essential hypertension 75452544 I10 Hyperlipidemia 12221877 E78.5 [id number] Fabrice Arroyo MD [facility] [address] [place] [address] 08/09/2020 13:51:48 08/27/2020 15:14:15 Administration of SARS-CoV-2 antigen vaccine 752801080 Z23 [id number] Jessie Cole MD Jet 14 IM [address] [facility] [place] [address] 08/23/2020 12:08:35 08/24/2020 14:33:32 Peripheral vascular disease 848275930 I73.9 was seeing vascular previously for follow up of her PVD s/p stent, no longer able to see her previous doc due to insurance issues. Continues moderate dose statin and daily ASA. Spinal lonnie nosis of lumbar region 50025055 M48.061 MRI shows only mild to moderate stenosis in lumbar region. Will proceed with spinal survery referral as patient's symptoms are out of proportion to her MRI findings and continue to worsen.. D/C of all pain meds and muscle relaxants because not helping. Due to her neuropathi c symptoms, will start low dose gabapentin in hopes it may help decrease the tingling sensations she has. Discussed the borderline evidence for this medication for radiculopa thy but better evidence for neuropathy . Atypical chest pain 1025 12954 R07.89 patient with atypical symptoms at rest only, but extremely high risk. Will obtain EKG now for comparison to previous, cardio referral for stress testing/ot her evaluation as indicated. Patient given instructio ns to seek emergency care if pain worsening, becoming more frequent or lasting longer, or develops any additional symptoms such as SOB, palpitatio ns, dizziness. Continue statin and daily ASA. [id number] Kathe Matthew MD [facility] [address] [place] [address] 08/28/2020 15:28:46 09/04/2020 15:51:28 Peripheral vascular disease 362105611 I73.9 s/p bilateral ROLLER MAKER on PE mild decrease of bilateral PT add Plavix and reduce ASA to 160 mg Trying to give up smoking 623926541 Z72.0 counsellin g was done and she is working her self down for quit smoking Dyslipidemia 841617694 E 78.5 increase Atorvastat in to 40 mg at bed time and get lipid studies Chest pain on exertion 05130950 R07.89 angina Nitro SL work up CAD EKG: I reviewed today and show no evidence of ischemia Essential hypertension 18134969 I10 continue on amlodipine , and add Toprol XL 25 mg Dizziness and giddiness 381272165 R42 She had orthostati c positional dizziness while at home except the one episode that she had it yesterday while she was in the kitchen area will get carotid US and if recure then tilt table and event recording Dyspnea on exertion 6084 5006 R06.09 Multifacto rial: Lung COPD later PFT Cardiac diastolic dysfunctio n, CAD [id number] Eugenia Byers MD [facility] [address] [place] [address] 08/28/2020 15:44:41 08/30/2020 10:44:19 Chalazion of right upper eyelid 0551390588 47215 H00.11 [id number] Di Enriquez, HAND RIGGER- Jet 14 OB [address] [facility] [place], [place] [address] [address] 09/27/2020 15:11:04 09/28/2020 07:28:45 Screening mammography 18494189 Z12.31 Gynecologi c examination 68110775 Z01.419 1. Counseled regarding prevention of STD's , condom use 2. Pap done and mammogram order given 3. Advised avoidance of tobacco, alcohol, and drugs . 4. Counseled regarding folic acid supplement ation, calcium needs and prevention of osteoporos is . 5. BSE reviewed and recommende d. 6. Follow up in one year or sooner if needed. Candidiasis of vagina 72 800621 B37.3 Nuswab done and sent to lab. Counseled on STD prevention and condom use. Counseled on yeast and BV prevention . Will follow up pending lab results. Vaginal discharge 754926 006 N89.8 [id number] MD Jet Marlow 14 IM [address] [facility] [address] [place] [address] 10/02/2020 08:44:49 10/03/2020 15:48:00 Peripheral vascular disease 141429302 I73.9 I'm not sure why her ABIs were not approved. We can do peer-peer or send details of today's visit. Prior PVD surgery with stents-- worsening leg pain worse with activity, relieved somewhat with rest, not improving with time. Spinal lonnie nosis of lumbar region 84865879 M48.061 gabapentin was helping but ran out. Would like to resume, will push up dosage as tolerated Previous discussion reviewed today:MRI shows only mild to moderate stenosis in lumbar region, L4/5 most. Will proceed with spinal survery referral as patient's symptoms are out of proportion to her MRI findings and continue to worsen.. D/C of all pain meds and muscle relaxants because not helping. Due to her neuropathi c symptoms, will start low dose gabapentin in hopes it may help decrease the tingling sensations she has. Discussed the borderline evidence for this medication for radiculopa thy but better evidence for neuropathy . [id number] Kathe Matthew MD [facility] [address] [place] [address] 10/30/2020 16:07:14 10/31/2020 15:44:39 Peripheral vascular disease 179188306 I73.9 s/p bilateral ROLLER MAKER on PE mild decrease of bilateral PT add Plavix and reduce ASA to 160 mgshe continue to fill intermitte nt claudicati on Trying to give up smoking 469349676 Z72.0 counsellin g was done and she is working her self down for quit smokingdow n to 7 cig a day Dyslipidemia 692083772 E 78.5 increase Atorvastat in to 40 mg at bed time and get lipid studies Chest pain on exertion 49928361 R07.89 angina Nitro SL work up CAD EKG: I reviewed today and show no evidence of ischemia Essential hypertension 07573948 I10 continue on amlodipine , and add Toprol XL 25 mg Dizziness and giddiness [id number] R42 She had orthostati c positional dizziness while at home except the one episode that she had it yesterday while she was in the kitchen area will get carotid US and if recure then tilt table and event recording Dyspnea on exertion 6084 5006 R06.09 Multifacto rial: Lung COPD later PFT Cardiac diastolic dysfunctio n, CAD Hyperlipoproteinemia 374 4001 E78.5 Hypertriglyceridemia 302 517707 E78.2 [id number] MD Jet Marlow [address] IM [address] [facility] [address] [place] [address] 12/20/2020 08:22:00 12/21/2020 06:06:33 Lumbar spondylosis 343702459 M47.896 Has seen ortho, in therapy now. Mild stenosis on MRI, significan t symptoms.q uitting smokingcon tinue gabapentin 300 TIDrefill hydrocodon e for rare/occas ional use, discussed side effects Peripheral vascular disease 953677287 I73.9 Prior PVD surgery with stents-- worsening leg pain worse with activity, relieved somewhat with rest, not improving with time. She is having her ABIs done soon. She has stopper her clopidogre l on her own but has contacted cardio for advice. Will check her labs now given bruising. Essential hypertension 48561895 I10 controlled per report of BPs done elsewhereW ill check labsif running low we may be able to back off on her amlodipine and/or metoprolol On maximal lipid therapy w/high dose statin and Zetia, no need to repeat labs as will not change management director . no taking fibrate anymore nor fish oil nor niacin Tobacco user 803893946 Z 72.0 quitting smoking now. Congratula geovanna her on her success already with cutting down. Spinal lonnie nosis of lumbar region 33662668 M48.061 gabapentin was helping but ran out. Would like to resume, will push up dosage as tolerated Previous discussion reviewed today:MRI shows only mild to moderate stenosis in lumbar region, L4/5 most. Will proceed with spinal survery referral as patient's symptoms are out of proportion to her MRI findings and continue to worsen.. D/C of all pain meds and muscle relaxants because not helping. Due to her neuropathi c symptoms, will start low dose gabapentin in hopes it may help decrease the tingling sensations she has. Discussed the borderline evidence for this medication for radiculopa thy but better evidence for neuropathy . [id number] MD Jet Marlow [address] [facility] [address] [place] [address] 05/07/2021 10:05:27 05/09/2021 10:33:19 Impacted cerumen of bilateral ears [id number] 738486 H61.23 ears improved after flush, continue to use Debrox on R and follow up if needs more interventi on Chronic ob structive pulmonary disease 24988752 J44.9 Education for the uses of her inhalers (Symbicort regularly for the time being as she is relying on her albuterol more and more), cont albuterol PRN for now. Peripheral vascular disease 912660810 I73.9 on ASA and clopidigre l now, ? anther agent as well after possible event per ophtho. Get pharmacy records. Congrats on smoking cessation! Essential hypertension 97539899 I10 on amlodipine alone, will increase back to 10mg daily Hyperlipidemia 54668542 E78.5 tolerating statin well high dose, will continue. Spinal lonnie nosis of lumbar region 95871485 M48.061 If desires we can re-increas e dosage to 300 TID, but she was on that dose previously and didn't like it. Cont same for time being. Her spinal surgeon has left and hasn't gotten in to follow ith anyone else. The plan per patient had been to move forward with surgery after she quit smoking, which she has now done. Re-referra l placed. Previous discussion reviewed today:MRI shows only mild to moderate stenosis in lumbar region, L4/5 most. Will proceed with spinal survery referral as patient's symptoms are out of proportion to her MRI findings and continue to worsen.. Injury of hand 327912392 S69.92XS following with ortho and workers comp at this time. Pain of le ft shoulder joint [id number] 1519817 M25.512 impingemen t vs tear, patient declines further evaluation today due to other priorities . Depressive disorder 3548 9007 F32.A discussed treatment options, she is interested in medication and therapy if possible, worried about time commitment . Discussed risks and benefits of meds. Will start effexor low dose, follow up in 6 weeks. Temporal headache 690417 06 R51.9 I'm concerned about her episode of temporary monocular blindness. It sounds like her ophtho did a thorough workup from patient's report, but I have no documentat ion. Will check labs now. Patient reports she is now on a new medication that is not on her list, will get info from pharmacy. Overweight 675798244 E66 .3 and fam hx dm, screen today given recent weight gain and increased urination Increased frequency of urination 506109705 R35.0 R/O infection, check for DM, [id number] MD Jet Marlow 14 IM [address] [facility] [address] [place] [address] 07/24/2021 10:35:09 07/24/2021 13:30:11 Acute sinusitis 94271374 J01.90 given severe maxillary tenderness and escalating acuity will treat for possible bacterial infection Abscess of lip 55370034 K13.0 by history is abscess (pus drained by ED per patient report), by exam could also be cyst. Patient is going to be on antibiotic s for her sinusitis now, will see if resolves. If not, referral to ENT for drainage/e xcision Nicotine d ependence with current use 777055926 F17.200 smoking for 45 years > 1/2 ppd. Discussed risks/bene fits of LDCT screening for lung cancer. Patient counseled on smoking cessation, she is working on it and has set a stop date within the next 2 weeks. Neuropathy 658616980 G62 .9 B12/folate /TSH normal, patient with prediabete s not likely the cause of her neuropathy . Findings are slightly worse on the R compared to L, cannot exclude possibilit y that symtpomsar e related to her back pathology. patient is awaiting a new back surgeon and was told no surgery until she quits smoking, which she is working on. For now, will increase to 300mg TID gabapentin as tolerated, has some left over from previous, new rx for 300mg caps can be sent if patient calls needing them, #90 with 6 refills. Spinal lonnie nosis of lumbar region 14503837 M48.061 gabapentin as above. Continues home PT. Discussed that I am willing to prescribe low dose opioid for PRN use at night when can't get pain relief enough to sleep. TRAY DELIVERY AIDE is not working today, but patient has been reliable in past with follow up visits and controlled substance agreement. Previous discussion reviewed today:MRI shows only mild to moderate stenosis in lumbar region, L4/5 most. Will proceed with spinal survery referral as patient's symptoms are out of proportion to her MRI findings and continue to worsen.. [id number] MD Jet Gonzalez [address] [facility] [address] [place] [address] 09/10/2021 16:27:35 09/11/2021 12:54:21 Tobacco user 893337543 Z72.0 Prev prescribed 21 mg nicotine and states that the patches were too strong.Rep orts to smoking <10 cigarettes a daywill try lower dose and taper t o 7 mg after 6 weeks Prediabetes 040539691 R7 3.03 POC A1c 6.2; steady from prev. A1c 4 months ago.encour aged incorporat ing fruits and veg in diet. Decreasing sat fats, processed foods and sweets.enc ouraged exercise 150 min a weeks. Obesity 566199602 E66.9 Patient interested in walk with a doc program.crespo s lost 10 lbs Impacted c erumen of bilateral ears 5657216034 631097 H61.23 patient has cerumen impaction; in office irrigation previously unsuccessf ul, will attempt to treat w debrox. [id number] Di Enriquez, HAND RIGGER- Jet [address] [facility] [place] [address] 10/29/2021 09:09:42 10/30/2021 08:23:24 Gynecologic examination 17667861 Z01.419 1. Counseled regarding prevention of STD's , condom use 2. Pelvic done and mammogram recently done this month. 3. Advised avoidance of tobacco, alcohol, and drugs . 4. Counseled regarding folic acid supplement ation, calcium needs and prevention of osteoporos is . 5. BSE reviewed and recommende d. 6. Follow up in one year or sooner if needed. [id number] MD Jet Marlow 14 IM [address] [facility] [place] [address] 12/02/2021 11:02:30 12/05/2021 14:45:04 Intermittent palpitations 386444724 R00.2 No associated chest pain. Symptoms not related to activity, Constipation 96339947 K5 9.00 No blood per rectum, Has h/o colon polyps-dutch ign. last sigmoidosc opy 2018- f/u 2022-patie nt instructed to continue docusate , will add miralax daily until constipati on resolves. After resolution continue docusate.- patient has guarding on exam of abdomen - will get imaging CT abd(normal renal function on cmp) - -if symptoms resolve with treatement then imaging cancelledT normal 05/28 [id number] MD Jet DAMIAN [address] IM [address] [facility] [place] [address] 12/23/2021 10:11:52 12/26/2021 13:08:26 Overweight 499788899 E66.3 Smoker 95458509 F17.200 Impacted c erumen in right ear 8071816547 661017 H61.21 Noted white flake obstructin g R ear canal, irrigation performed without much benefit, continue debrox drops and ENT referral placedAdvi sed against inserting any q-tips or other foreign bodies in ear [id number] MD Jet DAMIAN 14 IM [address] [facility] [place] [address] 01/13/2022 11:29:48 01/16/2022 10:38:49 Chronic back pain 442010376 G89.29 neuropathi c pain would like to try alternate medication . Previously did not tolerate increase dosage.- will trial pregabalin . Patient informed to stop gabapentin Lateral ep icondylitis of left humerus 3933700131 54911 M77.12 - tennis elbow on exam Spinal lonnie nosis of lumbar region 18844782 M48.061 Previous referral sent but unable to see patient for 4 months. States she cannot make it long to she Ortho.-Pat ient reports to calling [facility] and they take her insurance and would be will to see her sooner if she has a referral. Excessive cerumen in ear canal 758113692 H61.23 refill until patient can see ENT.-Appt. scheduled for february. [id number] MD Jet Gonzalez [address] IM [address] [facility] [place] [address] 04/08/2022 15:15:30 04/17/2022 11:34:29 Overweight 277134010 E66.3 BMI- 27.5- discussed exercise- she is very active at work -[employer] work at the [employer]. Chronic back pain 628555 002 G89.29 -- continue flexeril and meloxicam- - Continue PT- may extend for more visits.-- pending visit with orthopedic s Dysuria 86267532 R30.0 -- dysuria resolved per patient. Previously treated with Abx- completed 7 day course of ciprofloxa vance Smoker 70067038 F17.200 -- discussed risks of continued smoking and patient would like to attempt to quit. Her preferred method is with gum.--disc ussed need to take as directed particular ly in the first 6 weeks while initiating treatment. [id number] MD Jet Marlow [address] IM [address] [facility] [place] [address] 05/22/2022 15:08:14 06/04/2022 13:44:43 Common cold 28628817 J00 -- flu and covid testing in office negative and patient afebrile w/o accessory muscle use SPO2 97%-- Previously treated for pneumonia and completed Abx she reports to improvemen t in symptoms but now had return of symptoms. Less likely pneumonia as she is afebrile but will r/o w XR.-- given h/o COPD and prior pneumonia will order x ray to determine if previous infection has resolved.- - supportive care- alternate tylenol and ibuprofen for pain/fever .-- camphor and menthol can be used to help with congestion symptoms-- nasal saline Pneumonia 214263380 J18. 9 -- has seen pulmonolog y and was treated w Abx.-- Had f/u CT chest - 03/26/22 which reports to resolving pneumonia (patient was able to pull up records in her phone from outside facility) Obesity 830524793 E66.9 Patient interested in walk with a [employer] program.crespo s lost 10 lbs Chronic ob structive pulmonary disease 79090463 J44.9 -- no concern f COPD exacerbati on, no increase O2 requiremen t or increase sputum production . PAtient on room air maitining O2 saturation w/o ascessory muscle use.-- she only gets breathless with strenuous activity-- patient is low risk of exacerbati on and has not had any exacerbati ons in the past year-- GOLD group A- recommend LAMA plus ROSEMARIE as needed Screening for malignant neoplasm of colon 653923620 Z12.11 -- prior h/o polyps recommende d F/U 5 years. No melena or blood in stool currently. -- last colonoscop y 11/18/2017 Dysuria 36180613 R30.0 -- culture sent and pending will treat if indicated. [id number] MD Jet Peter [address] [facility] [place] [address] 07/18/2022 16:09:54 07/22/2022 13:41:07 Renal mass 239859360 N28.89 -- Patient with flank pain-- US kidney- 0.4 cm septation with prominent internal flow on color doppler imaging. Further evaluation with contrast enhanced MRI is recommende d. Fatigue 45305602 R53.83 - sleep study negative- prev A1C 6.2, TSH normal- will check electrolyt es and r/o anemia Overweight 052776691 E66 .3 BMI- 27.5- discussed exercise- she is very active at work -[employer] work at the [employer]. Smoker 35782724 F17.200 -- discussed risks of continued smoking and patient would like to attempt to quit. Her preferred method is with gum.--disc ussed need to take as directed particular ly in the first 6 weeks while initiating treatment. [id number] Di Enriquez, [facility] RIG[facility] [address] [facility] [place] [address] 10/14/2022 09:29:32 10/15/2022 12:01:10 Gynecologic examination 33716820 Z01.419 1. Counseled regarding prevention of STD's , condom use 2. Pelvic done and mammogram recently done this month. 3. Advised avoidance of tobacco, alcohol, and drugs . 4. Counseled regarding folic acid supplement ation, calcium needs and prevention of osteoporos is . 5. BSE reviewed and recommende d. 6. Follow up in one year or sooner if needed. Screening mammography 24 205107 Z12.31 Importance of yearly mammograms and sbe exam discussed with pt. Mammogram order given, pt verbalized understand ing. [id number] Avery Bradley MD Jet [address] OB [address] [facility] [place] [address] 07/21/2024 17:06:12 07/22/2024 14:47:35 Screening mammography 38117660 Z12.31 Importance of yearly mammograms and sbe exam discussed with pt. Mammogram order given, pt verbalized understand ing. Health Concerns Section Related Observation LastModified by Organization Detai ls LastModified Time None Recorded Concern Status LastModified by Organization Details LastModified Time None Recorded Advance Directives Directive N: Payers Insurance Date Sequence Insurance Name Policy Number Policy Sosa Covered Member ID Sosa Member ID Guarantor Name 05/06/2019 [facility] Jayla Chavo Whyte [id number] Jayla Chavo Whyte 04/19/2019 SLIDING FEE SCHEDULE - DISCOUNT Jayla E Whyte 11/10/2022 1 [place] Jayla E Whyte [id number] Jayla E Whyte 08/24/2019 SLIDING FEE SCHEDULE - DISCOUNT Jayla E Whyte 10/21/2023 [place] Jayla E Whyte [id number] Jayla E Whyte 12/18/2020 SLIDING FEE SCHEDULE - DISCOUNT Jayla E Whyte 08/24/2024 1 [facility] - DOS ON OR AFTER 20 (MEDICAID REPLACEMENT - HMO) Jayla E Whyte [id number] Jayla E Whyte 09/26/2019 1 *SELF PAY* Da na E Whyte 05/31/2019 1 [facility] (MEDICAID HMO) [id number] Xuan E Whyte [id number] Jayla E Whyte 05/06/2019 [facility] Jayla E Whyte [id number] Jayla E Whyte 04/19/2019 SLIDING FEE SCHEDULE - DISCOUNT Jayla E Whyte 07/14/2024 1 *SELF PAY* Da na E Whyte 05/02/2022 1 [facility] (MEDICAID REPLACEMENT - HMO) [id number] Jayla E Whyte [id number] Jayla E Whyte 10/21/2023 [facility] Jayla E Whyte [id number] Jayla E Whyte 02/28/2019 1 [facility] [id number] Jayla E Whyte [id number] Jayla E Whyte 10/21/2023 1 [place] Jayla E Whyte [id number] Jayla E Whyte 06/21/2024 2 [place] Jayla E Whyte [id number] Jayla E Whyte 07/21/2024 1 [facility] - DOS ON OR AFTER 20 (MEDICAID REPLACEMENT - HMO) Jayla E Whyte [id number] Jayla E Whyte 02/28/2019 1 [place] Jayla E Whyte [id number] Jayla E Whyte 03/17/2019 1 *SELF PAY* Da na E Whyte 10/29/2016 SLIDING FEE SCHEDULE - DISCOUNT Jayla E Whyte 01/28/2018 SLIDING FEE SCHEDULE - DISCOUNT Jayla Whyte Notes Date Note Type Note Provider Name and Address Organization Details Recorded Time 04/08/2022 text/html Patient is a 62 y/o w/ PMH of arrived to clinic for follow up for cystitis. She went to [facility] ER on 03/30/22 and was treated with ciprofloxacin. She was experiencing right flank and lower back pain which caused her to go to the ER. CT abd in ER did not indicate any intrabdominal abnormality. She has completed Abx and pain has improved. She denies current burning on urination. Chronic back back pain- has been referred to PT and has been going 2 days a week. Reports 1 more session left. The sessions have not improved her back pain but she is interested in extending her treatment. She has an appt with orthopedic sx later today for and evaluation. Reports to having spasm like pain occasionally. Denies dysfunction with bowel movements or bladder control.cigarettes- 6 a day down from 1/2 a pack. has been smoking since 18. Interested in starting nicorette gum. Claudia Carver MD Attn: Accounting[address] [place], [address], [place] 04/16/2022 10:46:51 05/22/2022 text/html 62 y/o female w PMH of COPD, Chronic back pain w/ lumbar stenosis, HTN, HLD, agustin cyst, PVD arrived with concern for URI. She reports to productive cough, subjective fever, nasal congestion and myalgias. She has associated nausea but denies diarrhea. Her Tmax was 100.2 at home. She is not flu vaccinated and is covid vaccinated bust does not have the booster. She reports to increased pressure in the left adnexal area, she states it is not pain. Has been present for about 4 days. She has a h/o 10 mm adrenal nodule that has been stable and and bilateral renal cysts that have been stable, as well as vaginal cuff cyst after hysterectomy. She denies urinary freq, urgency, or burning on urination. Jessie Cole MD Attn: [address]ing[address] [place], [address], [place] 05/26/2022 11:17:35 07/18/2022 text/html Patient is a 62 y/o F w/ PMH of kidney cyst, chronic low back pain, COPD, HTN, HLD, prediabetes arrived to clinic with complaints of continued flank pain more predominant on the left side. She has known bilateral renal cyst/masses noted on recent imaging. Denies urinary symptoms.Patient has been drinking freq lately, denies burning on urination. She awakens from sleep 2-4 time sper night to urinate. She is fatigued daily and wakes up tired. she already had a sleep test that was negative for apnea. Alphonse Fregoso MD Attn: [address]ing[address] [place], [address], [facility] 07/22/2022 07:30:14 10/14/2022 text/html Annual GYNReport ed bypatient.History:n o gynecologic complaints Urinary symptoms:No hematuria; No incontinence Vulva:No genital lesion Vagina:Normal vaginal discharge Breast:No breast pain; No breast lump; No nipple discharge Sexual complaints:No sexual complaints; No pain during intercourse; Normal libido Menopausal Symptoms:No menopausal symptoms; Normal vaginal lubrication Psychological symptoms:No depression; No anxiety; No PMDD Preventive measures:Encourage self breast examination; Encourage regular exercise; Encourage no tobacco use; Encourage regular mammograms starting age 40; Mammogram performed within the past year 62 yo patient here for ibccp breast exam only- , hx hysterectomy- hx renal disease, back pain, copd, ovarian cyst, depression, htn, gerd, high cholesterol, smoker, obesity, low vit d- mammogram wnl 10/09/21- pap wnl 09/27/20 CHELSEA Loo Attn: Accounting[address] [place], [address], [facility] 10/14/2022 14:49:30 07/21/2024 text/html Annual GYNReport ed bypatient.History:n o gynecologic complaints Urinary symptoms:No hematuria; No incontinence Vulva:No genital lesion Vagina:Normal vaginal discharge Breast:No breast pain; No breast lump; No nipple discharge Sexual complaints:No sexual complaints; No pain during intercourse; Normal libido Menopausal Symptoms:No menopausal symptoms; Normal vaginal lubrication Psychological symptoms:No depression; No anxiety; No PMDD Preventive measures:Encourage self breast examination; Encourage regular exercise; Encourage no tobacco use; Encourage regular mammograms starting age 40; Mammogram performed within the past year 64 yo patient here for ibccp breast exam only- , hx hysterectomy- hx renal disease, back pain, copd, ovarian cyst, depression, htn, gerd, high cholesterol, smoker, obesity, low vit d- mammogram wnl 06/23/23- pap wnl 09/27/20 HILARY Loo- Attn: Accounting[address] [facility], [place], [address], [facility] 07/21/2024 17:23:41 OBGyn Episode Ob Episode Information Episode Created Date Number of Fetuses Patient Bloodtype Patient rh Status Prepregnancy Weight lbs Domestic Partner Domestic Partner Phone Father Name Food And Drug Inspector Status 08/16/19 15 1 CLOSED Fetus Data First Name Last Name Admitted to NICU Weight (g) Sex Living Outcome Pediatric Complications Fetus ID Race Codes Race Delivery Type 3515.33 8 F Full Term Vaginal Gómez Calculation Initial Gómez Date Initial Exam Date Initial Exam Provider Initial Ultrasound Date Last Menstrual Period Date Ultra Sound Weeks Gestation 0 Eighteen To Twenty Week Gómez Update Ultra Sound Date Fundal Height At Umbil Quickening Date Ultra Sound Latest Weeks Gestation Final Gómez Confirmed By Final Gómez Confirmed Date Final Gómez Date Ultra Sound Latest Days Gestation 0 0 Menstrual History Last Menstrual Date Menses Monthly On Bcp Conception Prior Menses Frequency Hcg Plus Date Menarche Onset Age Delivery Information Delivery Date Delivery Type Labor Anesthesia Weeks Gestation Incision Type Labor Labor Length Hrs Delivered By Post Complications Tubal Sterilization Discharge Date Comments 1 Discharge Information Feeding Method Contraceptive Method Maternal HG B and HCT Levels
--- OUTSIDE RECORDS SUMMARY | 2024-10-11 10:53 | XMS_ITS | Encounter Summary ---
Author Organization [facility] Address [address] [place] [address] Phone Care Team Providers Care Human Resources Hr Representative Name Role Phone Vimal Dutton MD Primary Care Provider [phone] Tres Granado MD Primary Care Provider [phone] Mio Peck MD Unavailable Dedrick Carr MD Unavailable Cesar Manning Unavailable Edson Osobrne MD Unavailable Unavailable Abdullahi Wilson MD Primary Care Provider [phone] Cindy OliverM Unavailable [phone] Junior Wallace MD Unavailable Alycia Mcclain APRN, BAG LOADER MACHINE OPERATOR Unavailable + [phone] Juanis Can MD Primary Care Provider + [phone] Con Fox MD Unavailable [phone] Robert Lowery MD Unavailable Felisha Ware RUG UNDERLAY MACHINE OPERATOR, BAG LOADER MACHINE OPERATOR Primary Care Provider + [phone] Reason for Visit * Reason Onset Date Comments Referral 06/12/2022 Encounter Details Date Type Department Care Team ([facility] st Contact Info) Description 06/12/2022 Telephone [facility] Referral Management Services [address] [place] [id number] Vimal Dutton MD [address] [place] [address] Referral Social History Tobacco Use Types Packs/Day Years Used Date Smoking Tobacco: Former Cigarettes 0.5 15 1 05/07/2021 - 06/04/2022 Smokeless Tobacco: Never Comments:HAS NICOTINE PATCH Alcohol Use Standard Drinks/Week Comments Yes 2 (1 standard drink = 0.6 oz pur e alcohol) OCCASIONALLY Education Answer Date Recorded What is the [...] suspected to have Coronavirus/COVID-19? No / Unsure 06/06/2022 6:01 AM HOSPICE CLINICAL MARKETER documented as of this encounter Miscellaneous Notes * Telephone Encounter - Rolf Dumont Allen - 06/12/2022 8:12 AM CST SITUATION: Patient requesting provider review Orthopedic referral Referral. BACKGROUND: Referral unable to be processed. ASSESSMENT: Request for provider review due to the following reason(s): Patient refusal at this time, received [employer] message stating that the 2 locations I offered her, accepting her insurance, were too far away. There is location nearer her that take [employer] insurance. She also stated that she thought thatDr Dutton was an orthopedist. Closing this referral at this time, but it can be opened and worked at a later time if patient wishes to pursue RECOMMENDATION: Based on the above information the provider has the following option(s): Cancel existing referral. ROLF DUMONT [facility] OnCall - Centralized Referral Management 06/12/2022, 8:12 AM HOSPICE CLINICAL MARKETER ICE CLINICAL MARKETER documented in this encounter Plan of Treatment Upcoming Encounters Date Type Department Care Team (Late st Contact Info) Description 11/11/2024 11:30 AM CDT Office Visit [facility] - Pulmonology & Sleep Medicine - [place] [address] [place] [id number] Dedrick Carr MD [address] [place] [address] 12/16/2024 2:15 PM CDT Office Visit [facility] - Endocrinology - [place] [address] [place] [address] Robert Lowery MD [address] [address] 12/16/2024 3:30 PM CDT Office Visit [facility] - Primary Care - [place] [address] [place] [phone] Felisha Ware, RUG UNDERLAY MACHINE OPERATOR, BAG LOADER MACHINE OPERATOR [address] [place], [place] [id number] 01/27/2025 10:00 AM CDT Office Visit [facility] - Cardiology - [place] [address] [place] [address] Khadijah Garay, RUG UNDERLAY MACHINE OPERATOR, BAG LOADER MACHINE OPERATOR [address] [place] [address] documented as of this encounter Visit Diagnoses Not on filedocumented in this encounter Additional Health Concerns Infection Onset Date Last Indicated Resolved Time COVID - 19 05/16/2024 05/16/2024 05/16/2024 11:1 4 AM HOSPICE CLINICAL MARKETER documented as of this encounter Care Teams Human Resources Hr Representative Relationship Specialty Start Date End Date Vimal Dutton MD PCP - General Family Medicine 03/18/22 06/24/22 Tres Granado MD [address] [place] [address] [facility] [place] [address] PCP - General Family Medicine 06/25/22 09/03/22 Abdullahi Wilson MD [address] [place] [address] PCP - General Internal Medicine 09/04/22 08/02/23 Juanis Can MD [address] [place] [address] PCP - General Family Medicine 08/03/23 06/12/24 Felisha Ware, RUG UNDERLAY MACHINE OPERATOR, BAG LOADER MACHINE OPERATOR [address] [place] [address] PCP - General Certified Nurse Practitioner 06/13/24 Mio Peck MD [address] [place] [address] Consulting Physician Orthopaedic Surgery 09/04/22 Dedrick Carr MD [address] [place] [phone] Consulting Physician Pulmonary Disease 09/04/22 Cesar Manning [address] [facility] [address] [place] [address] Consulting Physician Orthopaedic Sports Medicine 09/04/22 Edson Osborne MD Consulting Physician Orthopaedic Surgery 09/04/22 09/04/22 Cindy Oliver DPM [address] [place] [address] Consulting Physician Podiatry 07/22/22 03/08/24 Junior Wallace MD [address] [place] [address] Consulting Physician Cardiovascular Disease - Cardiology 10/20/22 07/26/23 Alycia Cole APRN, BAG LOADER MACHINE OPERATOR [address] [facility] [address] [place] [address] Nurse Practitioner Advanced Practice Nurse 05/18/23 Con Fox MD [address] [facility] [address] [place] [address] [facility] Internal Medicine 12/10/23 Robert Lowery MD [address] [facility] [address] [place] [address] Consulting Physician Endocrinology 02/03/24 documented as of this encounter
[2024-10-11 11:26] VITALS: BP 176/74; PULSE 68; RESP 14; O2SAT 100
--- NOTE | 2024-10-11 11:52 | WPDHPUPDATE1 ---
History and Physical Update Update Date/Time: 10/11/24 11:52 History and Physical has been reviewed, including an updated exam of the patient. There are NO changes in the patient's condition. Risks, benefits, and alternatives have been discussed and questions answered. Patient agrees to proceed with procedure.
--- NOTE | 2024-10-11 11:53 | W.PM.PROC2 ---
Procedure Note - Detailed Date of Procedure 10/11/24 Pre-op Diagnosis Lumbar radiculopathy Post-op Diagnosis Same Procedure Performed Bilateral Lumbar Transforaminal Epidural Steroid Injection under Fluoroscopic Guidance and with Contrast Control at L3-4. Surgeon Al Avalos MD Anesthesia Local Description of Procedure INFORMED CONSENT: Risks, benefits and alternatives to the procedure were discussed in detail with the patient who expressed explicit understanding and consent to proceed. Patient was informed verbally and in written form regarding the risks associated with the procedure including the low risk of serious infection, bleeding/bruising, allergic reaction, nerve or organ injury, paralysis, procedural site pain or discomfort, worsening pain and/or mobility, failure to treat and/or disfigurement. The patient expressed explicit understanding and consent to proceed. All materials required for the procedure were available prior to procedure start. Site and side was marked prior to procedure and confirmed in the presence of the patient. PROCEDURE IN DETAIL: The patient was brought to the procedural suite and placed in the prone position. Patient was made comfortable with use of pillows under the head/chest, hips and ankles. Skin overlying the injection site was prepared broadly with ChloraPrep applicator and draped in a sterile manner. Aseptic technique was employed throughout. The endplates of the vertebral body at the site of interest were aligned in the AP view. Ipsilateral oblique angulation was utilized to better visualize the neuroforamen of interest. Local anesthesia was established by infiltration with approximately 5 mL of 0.5% PF lidocaine via a 1-1/2 inch 27-gauge needle. A 22-gauge 3.5 inch Mele (pencil point) spinal needle was advanced until the needle approached the 6 o'clock position on the pedicle just superior to the exiting nerve root. on the right at L3-4. Lateral view was utilized to confirm appropriate position of the needle tip within the superior and posterior portion of the respective foramen. In an AP view, 1 mL of Omnipaque 300 contrast medium was injected after negative aspiration for CSF, blood or other bodily fluid, showing appropriate neurogram without evidence of intravascular or intrathecal spread of contrast. Digital subtraction imaging was used with an additional 1ml of the same contrast medium to confirm absence of intravascular contrast spread. A 1mL solution containing 3 mg of betamethasone was injected after negative repeat aspiration. Appropriate spread of the injectate was confirmed with washout of previously injected contrast. No parasthesias were elicited. Needle was removed completely intact without difficulty. The same exact procedure was repeated for all remaining levels on the contralateral side, left L3-4 neuroforamen, modified as necessary to accommodate for the new target location with identical findings and results and no evidence of complication. Images were saved and documented in the patient chart. Patient's skin was cleaned and sterile bandage applied. The patient tolerated the procedure well. The patient was transported to the recovery area in stable condition where they were observed for an appropriate amount of time prior to discharge, without evidence of complication. The patient was instructed to avoid excessive activity for the next 48 hours, including climbing and frequent use of stairs. Showers only for 48 hours. They were instructed not to drive or operate heavy machinery for 24 hours. They are to monitor for severe headaches, fevers, chills, night sweats, erythema/swelling at the site or any other signs of infection, bleeding/bruising, bowel or bladder changes as well as new pain, weakness or numbness in the upper or lower extremity. Should they notice these changes, they are instructed to call our office immediately or report directly to the nearest Emergency Department if no answer or if after posted office hours. COMPLICATIONS: None COMMENTS: None CONTRAST WASTED: 26 mL Omnipaque 300. STEROID WASTED: 0 mg of betamethasone. Complications No immediate complications Condition Stable Disposition Same day [facility] Billing Surgery - Charge Forward: Surgery Billing
[2024-10-11 12:30] VITALS: BP 169/83; PULSE 78; RESP 17; O2SAT 100
[2024-10-11 12:35] VITALS: BP 160/78; PULSE 80; RESP 16; O2SAT 98
[2024-10-11 12:43] VITALS: BP 145/81; PULSE 76; RESP 18; O2SAT 100
[2024-10-11] MEDS: BETAMETHASONE SODIUM PHOSPHATE PF INJ 6 MG/ML VIAL INFILTRATE (14:06)
[2024-10-11] MEDS: LIDOCAINE 1% PF INJ 5 ML VIAL 4 ML INFILTRATE (14:08)
== END 2024-10-11 12:53 | disposition home or self-care (01) ==
PROVIDERS: PCP Internal Medicine; Visit Provider Anesthesiology Pain Medicine
PROC: (CPT 64483; principal; 2024-10-11 11:30)
DX: M54.16 Radiculopathy, lumbar region (principal)
CPT/HCPCS: 64483; 99199